=== PATIENT | female | born 1965 | race Caucasian/White ===

== ENCOUNTER 2023-08-15 20:30 | Outpatient (REF) | payer OTHER, SELFPAY ==
[2023-08-21 21:13] LABS: Age Gdln ACOG Testing Note (.); HPV Aptima Negative (Negative); IGP, Aptima HPV, rfx 16/18,45 Note (.)
== END 2023-08-15 20:31 | disposition home or self-care (01) ==
LOC: LAB 20:30
PROVIDERS: Visit Provider Obstetrics & Gynecology
DX: Z01.419 Encounter for gynecological examination (general) (routine) without abnormal findings (principal)
CPT/HCPCS: 87624; G0145

== ENCOUNTER 2023-09-12 15:51 | Outpatient (OUT) | payer OTHER, SELFPAY ==
--- OUTSIDE RECORDS SUMMARY | 2023-09-12 16:02 | XMS_ITS | CCD ---
Author Organization [facility] Care Team Providers Care Finished Yarn Examiner Name Role Phone Damaris Willingham Unavailable Reyna Cruz Unavailable MACKENZIE Cruz Attending Provider [phone] NO FAMILY, PHYSICIAN Primary Care Provider Unava ilable ELIAS Willingham Attending Provider Unavail able Reyna Cruz Attending Unavailable Reyna Cruz Admitting Unavailable NO FAMILY, PHYSICIAN Primary Care Unavailable Damaris Willingham Attending Unavailable Damaris Willingham Admitting Unavailable KARASIK, DR ARREDONDO Admitting Unavailable KARASIK, DR ARREDONDO Attending Unavailable KARASIK, DR ARREDONDO Consulting Unavailable KARASIK, DR ARREDONDO Admitting Unavailable KARASIK, DR ARREDONDO Attending Unavailable KARASIK, DR ARREDONDO Consulting Unavailable Paula HARRIS Admitting UnavailPaula Crowley Attending UnavailLAURENCE Mann Primary Care Unavailable Paula HARRIS Referring UnavailLAURENCE Mann Primary Care Unavailable Lm INFORMATION SYSTEMS SECURITY ANALYST-AUTOMOBILE TECHNICIANLaurence Primary Care Provid er Unavailable Primary Care Provider UnavailSRAAH Kulkarni Referring Unavailable LAURENCE AMATO Primary Care Unavailable LAURENCE AMATO Referring Unavailable LAURENCE AMATO Primary Care Unavailable ANILA ANDRADE Attending Unavailable ANILA ANDRADE Attending Unavailable Medications Current Medications Medication Drug Class(es) Dates Sig (Normalized) Sig (Original) cholecalciferol 0.125 mg oral tablet (2 sources) Vitamin D Start: 03-23-2023 take 1 tablet by mouth once in the morning cholecalciferol, vitamin D3, 5,000 units tablet Indications: Vitamin D deficiency Take 1 tablet (5,000 Units total) by mouth in the morning. 90 each 2 03/23/2023 Active ciprofloxacin 500 mg oral tablet (2 sources) Quinolone Antimicrobial Start: 05-11-2023 End: 05-18-2023 take 1 tablet by mouth in the morning ciprofloxacin (Cipro) 500 MG tablet Indications: Urinary Tract Infection Take 1 tablet (500 mg) by mouth in the morning and 1 tablet (500 mg) before bedtime. Do all this for 7 days. 14 tablet 0 05/11/2023 05/18/2023 Active doxycycline monohydrate 100 mg oral capsule (1 source) Tetracycline-class Drug Start: 11-18-2021 take 1 capsule by mouth every twelve hours Doxycycline Monohydrate 100 MG 1 capsule Orally every 12 hrs for 7 days Nov, Active fluticasone propionate 0.05 mg/actuat metered dose nasal spray (3 sources) Corticosteroid Start: 02-25-2023 take 2 spray(s) nasal route once daily fluticasone propionate (FLONASE) 50 mcg/actuation nasal spray instill 2 (TWO) Sprays Nasally DAILY FOR 14 DAYS 0 02/25/2023 Active Start: 03-31-2021 take 2 spray(s) nasa l route once daily Fluticasone Propionate 50 MCG/ACT 2 sprays Nasally Once a day for 14 day(s) Mar, Active 24 hr loratadine 10 mg / pseudoephedrine sulfate 240 mg extended release oral tablet (2 sources) alpha-Adrenergic Agonist Start: 12-07-2021 take 1 tablet by mouth once daily as needed, then take 1 tablet by mouth every twenty-four hours as needed loratadine-pseudoephedrine (CLARITIN-D 24-hour) 10-240 mg per 24 hr tablet Indications: Non-seasonal allergic rhinitis due to pollen Take 1 tablet by mouth daily as needed for allergies. 30 tablet 1 12/07/2021 Active metroNIDAZOLE 500 mg oral tablet (2 sources) Nitroimidazole Antimicrobial Start: 05-11-2023 End: 05-18-2023 take 1 tablet by mouth in the morning metroNIDAZOLE (Flagyl) 500 MG tablet Indications: BV (bacterial vaginosis) Take 1 tablet (500 mg) by mouth in the morning and 1 tablet (500 mg) before bedtime. Do all this for 7 days. Do not drink alcohol while taking this medication. 14 tablet 0 05/11/2023 05/18/2023 Active nitrofurantoin, macrocrystals 25 mg / nitrofurantoin, monohydrate 75 mg oral capsule (1 source) Nitrofuran Antibacterial Start: 01-12-2022 take 1 capsule by mouth every twelve hours Macrobid 100 MG 1 cap(s) Orally 2 times a day for 5 day(s) Jan, Active microencapsulated potassium chloride 20 meq extended release oral tablet (1 source) Start: 03-23-2023 End: 03-28-2023 take 1 tablet by mouth in the morning potassium chloride (KLOR-CON M 20) 20 MEQ CR tablet Indications: Hypokalemia Take 1 tablet (20 mEq total) by mouth in the morning and 1 tablet (20 mEq total) before bedtime. Do all this for 5 days. 10 tablet 0 03/23/2023 03/28/2023 Active pravastatin sodium 40 mg oral tablet (6 sources) HMG-CoA Reductase Inhibitor Start: 05-27-2022 End: 03-23-2023 take 1 tablet by mouth at bedtime pravastatin (PRAVACHOL) 40 mg tablet Indications: Mixed hyperlipidemia TAKE 1 TABLET BY MOUTH AT BEDTIME. 90 tablet 1 03/23/2023 Active Pravachol Active predniSONE 20 mg oral tablet (1 source) Start: 03-31-2021 take 1 tablet by mouth every twelve hours predniSONE 20 MG 1 tablet Orally bid for 5 day(s) Mar, Active Completed/Discontinued Medications Medication Drug Class(es) Dates Sig (Normalized) Sig (Original) fluconazole 150 mg oral tablet (3 sources) Azole Antifungal Start: 05-11-2023 End: 05-11-2023 take 1 tablet by mouth once, then take 1 tablet by mouth once fluconazole (Diflucan) 150 MG tablet Indications: Yeast infection Take 1 tablet (150 mg) by mouth 1 (one) time for 1 dose This is a 1 time dose, take single tablet by mouth. 1 tablet 1 05/11/2023 05/11/2023 Start: 11-18-2021 Diflucan 150 M G 1 tablet Orally if needed after antibiotics completed for 1 days Nov, Active phenazopyridine hydrochloride 200 mg oral tablet (3 sources) Start: 01-26-2022 End: 03-22-2023 take 1 tablet by mouth three times daily as needed for muscle spasms phenazopyridine (PYRIDIUM) 200 mg tablet Indications: Acute cystitis without hematuria Take 1 tablet (200 mg total) by mouth 3 (three) times a day as needed for bladder spasms. 10 tablet 0 01/26/2022 03/22/2023 Discontinued (Therapy completed) Start: 01-12-2022 take 1 tablet by mir th every eight hours Pyridium 200 MG 1 tablet after meals Orally Three times a day for 2 day(s) Jan, Active Start: 11-18-2021 take 1 tablet by mir th every eight hours Pyridium 200 MG 1 tablet after meals Orally Three times a day for 2 day(s) Nov, Active sulfamethoxazole 400 mg / trimethoprim 80 mg oral tablet (1 source) Dihydrofolate Reductase Inhibitor Antibacterial, Sulfonamide Antimicrobial End: 03-22-2023 take 1 tablet by mouth once in the morning sulfamethoxazole-trimethoprim (BACTRIM,SEPTRA) 400-80 mg per tablet Take 1 tablet by mouth in the morning and 1 tablet before bedtime. 0 03/22/2023 Discontinued (Therapy completed) Problems Active Problems Problem Classification Problem Date Documented Date Episodic/Chronic Abdominal pain (4 sources) Flank pain; Translations: [Unspecified abdominal pain] Onset: 11-18-2021 Resolved: 11-18-2021 Episodic Disorders of lipid metabolism (3 sources) Mixed hyperlipidemia; Translations: [Mixed hyperlipidemia] 03-23-2023 Chronic Fluid and electrolyte disorders (3 sources) Hypokalemia; Translations: [Hypokalemia] Onset: 06-05-2023 03-23-2023 Episodic Genitourinary symptoms and ill-defined conditions (7 sources) Dysuria; Translations: [Dysuria] Onset: 01-12-2022 Episodic Inflammatory diseases of female pelvic organs (2 sources) Bacterial vaginosis; Translations: [Acute vaginitis] 05-04-2023 Episodic Malaise and fatigue (2 sources) Fatigue; Translations: [Other fatigue] Onset: 03-23-2023 03-22-2023 Episodic Mycoses (2 sources) Mycosis; Translations: [Candidiasis, unspecified] 05-11-2023 Episodic Nutritional deficiencies (2 sources) Vitamin D deficiency; Translations: [Vitamin D deficiency, unspecified] Onset: 03-23-2023 03-22-2023 Chronic Other female genital disorders (4 sources) Unspecified condition associated with female genital organs and menstrual cycle; Translations: [UNS COND W/FE GENIT ORGN MENST CYCL] Onset: 02-22-2022 Episodic Other nervous system disorders (1 source) Other acute postprocedural pain; Translations: [Other acute postprocedural pain] Onset: 01-10-2023 Episodic Other screening for suspected conditions (not mental disorders or infectious disease) (5 sources) Encounter for screening for malignant neoplasm of cervix; Translations: [Patient encounter status] Onset: 07-22-2021 Episodic Other upper respiratory infections (2 sources) Acute sinusitis, unspecified; Translations: [Viral upper respiratory tract infection] Onset: 03-31-2021 Resolved: 03-31-2021 Episodic Sprains and strains (1 source) Strain of muscle at thorax level; Translations: [Strain of muscle and tendon of unspecified wall of thorax, initial encounter] 06-05-2023 Episodic Past or Other Problems Problem Classification Problem Date Documented Date Episodic/Chronic Cardiac dysrhythmias (2 sources) Tachycardia; Translations: [Tachycardia, unspecified] Onset: 02-14-2019 02-14-2019 Episodic Immunizations and screening for infectious disease (1 source) Encounter for screening for human papillomavirus (HPV); Translations: [ENC SCREENING HUMAN PAPILLOMAVIRUS] Onset: 07-23-2021 Episodic Mood disorders (2 sources) Mood disorders Onset: 03-22-2023 Resolved: 06-05-2023 03-22-2023 Other connective tissue disease (2 sources) Plantar fasciitis of left foot; Translations: [Plantar fascial fibromatosis] Onset: 02-14-2019 02-14-2019 Episodic Unclassified (2 sources) Onset: 03-28-2023 03-28-2023 Urinary tract infections (4 sources) Acute cystitis with hematuria; Translations: [Urinary tract infection, site not specified] Onset: 07-03-2019 Resolved: 11-18-2021 Episodic Results Test Name Value Interpretation Reference Range Facility BASIC METABOLIC PANLon 06-04 Anion gap [Moles/Vol] 7 mmol/L Normal 5-15 [facility] Comment on above: Performed By: #### B MP #### [facility] ([id number]) [address] [place] [address] Calcium [Mass/Vol] 10.5 mg/dL Normal 8.5-10.[address] [facility] Comment on above: Performed By: #### B MP #### [facility] ([id number]) [address] [place] [address] Chloride [Moles/Vol] 100 mmol/L Normal 98-109 [facility] Comment on above: Performed By: #### B MP #### [facility] ([id number]) [address], [address] [place] [address] CO2 [Moles/Vol] 32 mmol/L Normal 22-32 [facility] Comment on above: Performed By: #### B MP #### [facility] ([id number]) [address] [place] [address] Creatinine [Mass/Vol] 0.71 mg/dL Normal 0.40-1.00 [facility] Comment on above: Result Comment: METH OD TRACEABLE TO IDMS STANDARD Performed By: #### B MP #### [facility] ([id number]) [address] [place] [address] eGFR (CKD-EPI) NON-RACE DEPENDENT >90 Normal >59 [facility] Comment on above: Result Comment: Reported eGFR is based on the CKD-EPI 2020 equation that does not use a race coefficient. Performed By: #### B MP #### [facility] ([id number]) [address] [place] [address] Glucose [Mass/Vol] 95 mg/dL Normal 65-[address] [facility] Comment on above: Performed By: #### B MP #### [facility] ([id number]) [address], [address] [place] [address] Potassium [Moles/Vol] 3.8 mmol/L Normal 3.5-5.0 [facility] Comment on above: Performed By: #### B MP #### [facility] ([id number]) [address], [address] [place] [address] Sodium [Moles/Vol] 139 mmol/L Normal 134-[address] [facility] Comment on above: Performed By: #### B MP #### [facility] ([id number]) [address], [address] [place] [address] Urea nitrogen [Mass/Vol] 18 mg/dL Normal 5-23 [facility] Comment on above: Performed By: #### B MP #### [facility] ([id number]) [address], [address] [place] [address] Basic Metabolic Panelon 03-0 Anion gap [Moles/Vol] 7 mmol/L 5 - 15 mmol/L [facility] Calcium [Mass/Vol] 10.5 mg/dL 8.5 - 10. 5 mg/dL [facility] Chloride [Moles/Vol] 100 mmol/L 98 - 109 mmol/L [facility] CO2 [Moles/Vol] 32 mmol/L 22 - 32 mmol/L [facility] Creatinine [Mass/Vol] 0.71 mg/dL 0.40 - 1.00 mg/dL [facility] Comment on above: METHOD TRACEABLE TO IDMS STANDARD eGFR (CKD-EPI)non-race dependent - PINF [facility] Comment on above: Reported eGFR is based on the CKD-EPI 2020 equation that does not use a race coefficient. Glucose [Mass/Vol] 95 mg/dL 65 - 99 mg/dL [facility] Potassium [Moles/Vol] 3.8 mmol/L 3.5 - 5.0 mmol/L [facility] Sodium [Moles/Vol] 139 mmol/L 134 - 146 mmol/L [facility] Urea nitrogen [Mass/Vol] 18 mg/dL 5 - 23 mg/dL [facility] POCT urinalysis dipstick onl yon 06-05-2023 Appearance (U) CLEAR [facility] External Poct Urine Bilirubin Negative [facility] External Poct Urine Blood Negative [facility] External Poct Urine Color YELLOW [facility] External Poct Urine Glucose Negative [facility] External Poct Urine Ketones Negative [facility] External Poct Urine Leukocyte Esterase Negative [facility] External Poct Urine Nitrite Negative [facility] External Poct Urine Ph 5.5 [facility] External Poct Urine Protein Negative [facility] External Poct Urine Specific Chauncey 1.030 [facility] External Poct Urine Urobilinogen 0.2 [facility] URINE CULTUREon 06-05-2023 Bacteria identified Cx Nom (U) CULTURE RESULTS <10,000 ORGANISMS/ML NORMAL URO GENITAL FIDELIA Normal [facility] Comment on above: Performed By: #### C BCA, CMP, 72807-8, FEPR, 3016-3, 2276-4, 82784-6, 2132-9 #### [facility] ([id number]) [address], [address] [place] [address] Urinalysis macro (dipstick) panel (U)on 05-11-2023 Bilirubin, UA Negative Negative - 4(70) +++ mg/dL [facility] Blood, UA Positive Negative - 50 Marlo/mcL [facility] Clarity, UA Clear [facility] Color, UA Yellow [facility] Glucose, UA Negative Negative - 1999(110) ++++ mg/dL [facility] Interpretation and review of laboratory results Abnormal [facility] Ketones, UA Negative Negative - 160(16) ++++ mg/dL [facility] Leukocytes, UA Negative Negative - 500+++ Mitchel/mcL [facility] Nitrite, UA Negative Negative - Positive [facility] pH, UA 6.5 5 - 9 [facility] Protein, UA Negative Negative - 1999(20) ++++ mg/dL [facility] Spec Grav, UA 1.030 1 - 1.03 [facility] Urobilinogen, UA 1.0 0.2 - 12 mg/dL [facility] e Hemoglobin A1con 03-23-2023 Average glucose Estimated from glycated hemoglobin (Bld) [Mass/Vol] 117 mg/dL [facility] HbA1c (Bld) [Mass fraction] 5.7 % High 4.4 - 5.6 % [facility] Comment on above: NOTE ADA Guidelines Result HgbA1c Normal : less than 5.7 % Prediabetes : 5.7 % to 6.4 % Diabetes : > 6.4 % Use with caution in patients with abnormal hemoglobin variants as the half-life of red blood cells and in vivo glycation rates are affected. Interpretation and review of laboratory results Abnormal [facility] CBC AND AUTO DIFFon 03-22-20 ABSOLUTE BASOPHIL 0.0 X10E9/L Normal 0.0-0.[address] [facility] Comment on above: Performed By: #### C BCA, CMP, 81333-4, FEPR, 3016-3, 2276-4, 81135-4, 2131-12 #### [facility] ([id number]) [address] [place] [address] ABSOLUTE NEUTROPHIL 2.3 X10E9/L Normal 1.5-6.6 [facility] Comment on above: Performed By: #### C BCA, CMP, 45907-8, FEPR, 3016-3, 2276-4, 15360-2, 2131-12 #### [facility] ([id number]) [address] [place] [address] Basophils/100 WBC (Bld) 0.4 % Normal [facility] Comment on above: Performed By: #### C BCA, CMP, 25308-8, FEPR, 3016-3, 2276-4, 54382-4, 9 #### [facility] ([id number]) [address] [place] [address] Eosinophils (Bld) [#/Vol] 0.1 10*3/uL Normal 0.0-0.4 [facility] Comment on above: Performed By: #### C BCA, CMP, 30479-2, FEPR, 3016-3, 2276-4, 64390-9, 2131-12 #### [facility] ([id number]) [address], [address] [place] [address] Eosinophils/100 WBC (Bld) 1.5 % Normal [facility] Comment on above: Performed By: #### C BCA, CMP, 60036-2, FEPR, 3016-3, 2276-4, 28466-5, 2131-12 #### [facility] ([id number]) [address], [facility] [address] [place] [address] Erythrocyte distribution width (RBC) [Ratio] 13.6 % Normal 11.5-15.0 [facility] Comment on above: Performed By: #### C BCA, CMP, 58764-5, FEPR, 3016-3, 2276-4, 12061-7, 2131-12 #### [facility] ([id number]) [address], [facility] [address] [place] [address] Hematocrit (Bld) [Volume fraction] 42.5 % Normal 35-47 [facility] Comment on above: Performed By: #### C BCA, CMP, 19995-0, FEPR, 3016-3, 2276-4, 88746-2, 2131-12 #### [facility] ([id number]) [address], [facility] [address] [place] [address] Hemoglobin (Bld) [Mass/Vol] 14.3 g/dL Normal 11.7-15.5 [facility] Comment on above: Performed By: #### C BCA, CMP, 36136-3, FEPR, 3016-3, 2276-4, 11300-9, 2131-12 #### [facility] ([id number]) [address], [address] [place] [address] Lymphocytes (Bld) [#/Vol] 3.0 10*3/uL Normal 1.0-3.5 [facility] Comment on above: Performed By: #### C BCA, CMP, 17243-2, FEPR, 3016-3, 2276-4, 53325-6, 2131-12 #### [facility] ([id number]) [address], [address] [place] [address] Lymphocytes/100 WBC (Bld) 52.4 % Normal [facility] Comment on above: Performed By: #### C BCA, CMP, 12233-9, FEPR, 3016-3, 2276-4, 13826-4, 2131-12 #### [facility] ([id number]) [address], [address] [place] [address] MCH (RBC) [Entitic mass] 29.5 pg Normal 27-34 [facility] Comment on above: Performed By: #### C BCA, CMP, 59899-3, FEPR, 3016-3, 227-4, 52930-2, 2131-12 #### [facility] ([id number]) [address], [address] [place] [address] MCHC (RBC) [Mass/Vol] 33.6 g/dL Normal 32-36 [facility] Comment on above: Performed By: #### C BCA, CMP, 02024-6, FEPR, 3016-3, 2276-4, 65136-4, 2131-12 #### [facility] ([id number]) [address] [place] [address] MCV (RBC) [Entitic vol] 88 fL Normal 80-100 [facility] Comment on above: Performed By: #### C BCA, CMP, 79358-2, FEPR, 3016-3, 2276-4, 10438-7, 2131-12 #### [facility] ([id number]) [address], [address] [place] [address] Monocytes (Bld) [#/Vol] 0.3 10*3/uL Normal 0-0.9 [facility] Comment on above: Performed By: #### C BCA, CMP, 71857-1, FEPR, 3016-3, 2276-4, 17711-5, 2131-12 #### [facility] ([id number]) [address], [address] [place] [address] Monocytes/100 WBC (Bld) 4.8 % Normal [facility] Comment on above: Performed By: #### C BCA, CMP, 74976-4, FEPR, 3016-3, 2276-4, 48801-4, 2131-12 #### [facility] ([id number]) [address], [address] [place] [address] Neutrophils/100 WBC (Bld) 40.9 % Normal [facility] Comment on above: Performed By: #### C BCA, CMP, 76938-8, FEPR, 3016-3, 2276-4, 75959-0, 2131-12 #### [facility] ([id number]) [address] [place] [address] Platelet mean volume (Bld) [Entitic vol] 7.6 fL Normal 7-12 [facility] Comment on above: Performed By: #### C BCA, CMP, 33638-0, FEPR, 3016-3, 2276-4, 92534-8, 2131-12 #### [facility] ([id number]) [address], [address] [place] [address] Platelets (Bld) [#/Vol] 307 10*3/uL Normal 150-450 [facility] Comment on above: Performed By: #### C BCA, CMP, 63125-0, FEPR, 3016-3, 2276-4, 75249-9, 2131-12 #### [facility] ([id number]) [address], [address] [place] [address] RBC COUNT 4.84 X10E12/L Normal 3.80-5.[address] [facility] Comment on above: Performed By: #### C BCA, CMP, 49432-3, FEPR, 3016-3, 2276-4, 41144-0, 2131-12 #### [facility] ([id number]) [address] [place] [address] WBC (Bld) [#/Vol] 5.7 10*3/uL Normal 4.0-11.[address] [facility] Comment on above: Performed By: #### C BCA, CMP, 83701-8, FEPR, 3016-3, 2276-4, 81663-1, 2131-12 #### [facility] ([id number]) [address] [place] [address] CBC auto differentialon 03-04 Basophils (Bld) [#/Vol] 0.0 10*3/uL [facility] Basophils/100 WBC (Bld) 0.4 % [facility] Eosinophils (Bld) [#/Vol] 0.1 10*3/uL [facility] Eosinophils/100 WBC (Bld) 1.5 % [facility] Erythrocyte distribution width (RBC) [Ratio] 13.6 % 11.5 - 15.0 % [facility] Hematocrit (Bld) [Volume fraction] 42.5 % 35 - 47 % [facility] Hemoglobin (Bld) [Mass/Vol] 14.3 g/dL 11.7 - 15.5 g/dL [facility] Lymphocytes (Bld) [#/Vol] 3.0 10*3/uL [facility] Lymphocytes/100 WBC (Bld) 52.4 % [facility] MCH (RBC) [Entitic mass] 29.5 pg 27 - 34 pg [facility] MCHC (RBC) [Mass/Vol] 33.6 g/dL 32 - 36 g/dL [facility] MCV (RBC) [Entitic vol] 88 fL 80 - 100 fL [facility] Monocytes (Bld) [#/Vol] 0.3 10*3/uL [facility] Monocytes/100 WBC (Bld) 4.8 % [facility] Neutrophils (Bld) [#/Vol] 2.3 10*3/uL [facility] Neutrophils/100 WBC (Bld) 40.9 % [facility] Platelet mean volume (Bld) [Entitic vol] 7.6 fL 7 - 12 fL [facility] Platelets (Bld) [#/Vol] 307 10*3/uL [facility] RBC (Bld) [#/Vol] 4.84 10*6/uL [facility] WBC corrected for nucl RBC Auto (Bld) [#/Vol] 5.7 [facility] COMPREHENSIVE METABOLIC PANE [place] 03-22-2023 Albumin [Mass/Vol] 4.6 g/dL Normal 3.2-5.[address] [facility] Comment on above: Performed By: #### C BCA, CMP, 89676-6, FEPR, 3016-3, 2276-4, 56317-8, 2131-12 #### [facility] ([id number]) [address], [address] [place] [address] ALP [Catalytic activity/Vol] 89 U/L Normal 39-130 [facility] Comment on above: Performed By: #### C BCA, CMP, 12688-8, FEPR, 3016-3, 2276-4, 27017-1, 2131-12 #### [facility] ([id number]) [address], [address] [place] [address] ALT [Catalytic activity/Vol] 21 U/L Normal 0-31 [facility] Comment on above: Performed By: #### C BCA, CMP, 57965-5, FEPR, 3016-3, 2276-4, 39352-0, 2131-12 #### [facility] ([id number]) [address], [address] [place] [address] Anion gap [Moles/Vol] 9 mmol/L Normal 5-15 [facility] Comment on above: Performed By: #### C BCA, CMP, 08076-7, FEPR, 3016-3, 2276-4, 80271-1, 2131-12 #### [facility] ([id number]) [address] [place] [address] AST [Catalytic activity/Vol] 24 U/L Normal 0-41 [facility] Comment on above: Performed By: #### C BCA, CMP, 99041-2, FEPR, 3016-3, 2276-4, 11782-0, 2131-12 #### [facility] ([id number]) [address], [address] [place] [address] Bilirubin [Mass/Vol] 0.5 mg/dL Normal 0.3-1.2 [facility] Comment on above: Performed By: #### C BCA, CMP, 52536-6, FEPR, 3016-3, 2276-4, 49184-6, 2131-12 #### [facility] [facility] ([id number]) [address], [address] [place] [address] Calcium [Mass/Vol] 10.4 mg/dL Normal 8.5-10.[address] [facility] Comment on above: Performed By: #### C BCA, CMP, 24123-6, FEPR, 3016-3, 2276-4, 62814-0, 2131-12 #### [facility] ([id number]) [address], [address] [place] [address] Chloride [Moles/Vol] 104 mmol/L Normal 98-109 [facility] Comment on above: Performed By: #### C BCA, CMP, 26756-0, FEPR, 3016-3, 2276-4, 10018-9, 2131-12 #### [facility] ([id number]) [address], [address] [place] [address] CO2 [Moles/Vol] 28 mmol/L Normal 22-32 [facility] Comment on above: Performed By: #### C BCA, CMP, 86281-0, FEPR, 3016-3, 2276-4, 76520-1, 2131-12 #### [facility] ([id number]) [address], [address] [place] [address] Creatinine [Mass/Vol] 0.81 mg/dL Normal 0.40-1.00 [facility] Comment on above: Result Comment: METH OD TRACEABLE TO IDMS STANDARD Performed By: #### C BCA, CMP, 29329-4, FEPR, 3016-3, 2276-4, 48751-3, 2131-12 #### [facility] ([id number]) [address] [place] [address] GFR/1.73 sq M.predicted among non-blacks MDRD (S/P/Bld) [Vol rate/Area] 85 mL/min/{1.73_m2} Normal >59 [facility] Comment on above: Result Comment: Reported eGFR is based on the CKD-EPI 2020 equation that does not use a race coefficient. Performed By: #### C BCA, CMP, 40903-2, FEPR, 3016-3, 2276-4, 57431-4, 2131-12 #### [facility] ([id number]) [address], [address] [place] [address] Glucose [Mass/Vol] 103 mg/dL High 65-[address] [facility] Comment on above: Performed By: #### C BCA, CMP, 37749-6, FEPR, 3016-3, 2276-4, 54259-1, 2131-12 #### [facility] ([id number]) [address], [address] [place] [address] Potassium [Moles/Vol] 3.2 mmol/L Low 3.5-5.0 [facility] Comment on above: Performed By: #### C BCA, CMP, 16745-2, FEPR, 3016-3, 2276-4, 30014-6, 2131-12 #### [facility] ([id number]) [address] [place] [address] Protein [Mass/Vol] 7.6 g/dL Normal 6.0-8.[address] [facility] Comment on above: Performed By: #### C BCA, CMP, 59604-4, FEPR, 3016-3, 2276-4, 80398-9, 2131-12 #### [facility] ([id number]) [address] [place] [address] Sodium [Moles/Vol] 141 mmol/L Normal 134-[address] [facility] Comment on above: Performed By: #### C BCA, CMP, 36889-2, FEPR, 3016-3, 2276-4, 59939-0, 2131-12 #### [facility] ([id number]) [address], [address] [place] [address] Urea nitrogen [Mass/Vol] 19 mg/dL Normal 5-23 [facility] Comment on above: Performed By: #### C BCA, CMP, 04262-2, FEPR, 3016-3, 2276-4, 08045-6, 2131-12 #### [facility] ([id number]) [address] [place] [address] Cobalamin (Vitamin B12) [Mas s/Vol]on 03-22-2023 [facility] Comprehensive metabolic pane [place] 03-22-2023 Albumin [Mass/Vol] 4.6 g/dL 3.2 - 5.3 g/dL [facility] ALP [Catalytic activity/Vol] 89 U/L 39 - 130 U/L [facility] ALT No additional P-5'-P [Catalytic activity/Vol] 21 U/L 0 - 31 U/L [facility] Anion gap [Moles/Vol] 9 mmol/L 5 - 15 mmol/L [facility] AST [Catalytic activity/Vol] 24 U/L 0 - 41 U/L [facility] Bilirubin [Mass/Vol] 0.5 mg/dL 0.3 - 1.2 mg/dL [facility] Calcium [Mass/Vol] 10.4 mg/dL 8.5 - 10. 5 mg/dL [facility] Chloride [Moles/Vol] 104 mmol/L 98 - 109 mmol/L [facility] CO2 [Moles/Vol] 28 mmol/L 22 - 32 mmol/L [facility] Creatinine [Mass/Vol] 0.81 mg/dL 0.40 - 1.00 mg/dL [facility] Comment on above: METHOD TRACEABLE TO [facility] STANDARD eGFR (CKD-EPI)non-race dependent 85 - PINF [facility] Comment on above: Reported eGFR is based on the CKD-EPI 2020 equation that does not use a race coefficient. Glucose [Mass/Vol] 103 mg/dL High 65 - 99 mg/dL [facility] Potassium [Moles/Vol] 3.2 mmol/L Low 3.5 - 5.0 mmol/L [facility] Protein [Mass/Vol] 7.6 g/dL 6.0 - 8.0 g/dL [facility] Sodium [Moles/Vol] 141 mmol/L 134 - 146 mmol/L [facility] Urea nitrogen [Mass/Vol] 19 mg/dL 5 - 23 mg/dL [facility] FERRITINon 03-22-2023 Ferritin [Mass/Vol] 136 ng/mL Normal 11-307 [facility] Comment on above: Performed By: #### C BCA, CMP, 66017-4, FEPR, 3016-3, 2276-4, 27760-8, 2132-9 #### [facility] ([id number]) [address], [address] [place] [address] Ferritinon 03-22-2023 Ferritin [Mass/Vol] 136 ng/mL 11 - 307 ng/mL [facility] Ferritin [Mass/Vol]on 2022 [facility] HGB A1C (GLYCO-HGB)on 2022 Glucose [Mass/Vol] 117 mg/dL Normal [facility] Comment on above: Performed By: #### C BCA, CMP, 28610-3, FEPR, 3016-3, 2276-4, 87215-3, 2131-12 #### [facility] ([id number]) [address], [address] [place] [address] HbA1c (Bld) [Mass fraction] 5.7 % High 4.4-5.6 [facility] Comment on above: Result Comment: NOTE ADA Guidelines Result HgbA1c Normal : less than 5.7 % Prediabetes : 5.7 % to 6.4 % Diabetes : > 6.4 % Use with caution in patients with abnormal hemoglobin variants as the half-life of red blood cells and in vivo glycation rates are affected. Performed By: #### C BCA, CMP, 01964-3, FEPR, 3016-3, 2276-4, 49667-5, 2131-12 #### [facility] ([id number]) [address], [address] [place] [address] IRON PROFILEon 03-22-2023 Iron [Mass/Vol] 50 ug/dL Normal 50-170 [facility] Comment on above: Performed By: #### C BCA, CMP, 18226-5, FEPR, 3016-3, 2276-4, 17248-5, 2131-12 #### [facility] ([id number]) [address], [address] [place] [address] IRON BINDING 448 ug/dL High 250-425 [facility] Comment on above: Performed By: #### C BCA, CMP, 91949-2, FEPR, 3016-3, 2276-4, 10022-1, 2131-12 #### [facility] ([id number]) [address] [place] [address] IRON SATURATION 11 % SATURATION Low 15-50 [facility] Comment on above: Performed By: #### C BCA, CMP, 29822-6, FEPR, 3016-3, 2276-4, 44252-4, 2131-12 #### [facility] ([id number]) [address] [place] [address] Iron and TIBCon 03-22-2023 Interpretation and review of laboratory results Abnormal [facility] Iron [Mass/Vol] 50 ug/dL 50 - 170 ug/dL [facility] Iron binding capacity [Mass/Vol] 448 ug/dL High 250 - 425 ug/dL [facility] Iron saturation [Mass fraction] 11 Low [facility] Lipid 1996 panelon 3 Cholesterol [Mass/Vol] 280 mg/dL High 150 - 200 mg/dL [facility] Cholesterol in HDL [Mass/Vol] 71 mg/dL 39 - PINF mg/dL [facility] Comment on above: HDL <40 mg/dL - High Risk HDL > or = 40mg/dL- Desirable HDL >60 mg/dL - Negative Risk Cholesterol in LDL [Mass/Vol] 174 mg/dL High NINF - 130 mg/dL [facility] Comment on above: LDL <100 mg/dL - Desirable LDL >160 mg/dL - High Risk Cholesterol in VLDL [Mass/Vol] 35 mg/dL High 0 - 30 mg/dL [facility] Cholesterol.total/C holesterol in HDL [Mass ratio] 3.9 {ratio} 1.0 - 5.0 [facility] Triglyceride [Mass/Vol] 175 mg/dL High 27 - 150 mg/dL [facility] Cholesterol [Mass/Vol] 280 mg/dL High 150-200 [facility] Comment on above: Performed By: #### Raymond BCA, CMP, 27052-8, FEPR, 3016-3, 2276-4, 82836-8, 2131-12 #### [facility] ([id number]) [address], [address] [place] [address] Cholesterol in HDL [Mass/Vol] 71 mg/dL Normal >39 [facility] Comment on above: Result Comment: HDL <40 mg/dL - High Risk HDL > or = 40mg/dL- Desirable HDL >60 mg/dL - Negative Risk Performed By: #### C BCA, CMP, 42075-8, FEPR, 3016-3, 2276-4, 81933-9, 2131-12 #### [facility] ([id number]) [address] [place] [address] Cholesterol in LDL [Mass/Vol] 174 mg/dL High <130 [facility] Comment on above: Result Comment: LDL <100 mg/dL - Desirable LDL >160 mg/dL - High Risk Performed By: #### C BCA, CMP, 79100-0, FEPR, 3016-3, 2276-4, 27237-3, 2131-12 #### [facility] ([id number]) [address] [place] [address] Cholesterol in VLDL [Mass/Vol] 35 mg/dL High 0-30 [facility] Comment on above: Performed By: #### C BCA, CMP, 57343-8, FEPR, 3016-3, 2276-4, 81608-0, 2131-12 #### [facility] ([id number]) [address], [address] [place] [address] CHOLESTEROL:HDL 3.9 Normal 1.0-5.0 [facility] Comment on above: Performed By: #### C BCA, CMP, 33190-9, FEPR, 3016-3, 2276-4, 30617-4, 2131-12 #### [facility] ([id number]) [address] [place] [address] Triglyceride [Mass/Vol] 175 mg/dL High 27-150 [facility] Comment on above: Performed By: #### C BCA, CMP, 96694-3, FEPR, 3016-3, 2276-4, 74286-5, 2131-12 #### [facility] ([id number]) [address] [place] [address] No Panel Informationon 03-22 [facility] Interpretation and review of laboratory results Abnormal [facility] TSHon 03-22-2023 TSH Qn 3.02 m[IU]/L [facility] TSH Qnon 03-22-2023 TSH 3.02 uIU/mL Normal 0.49-4.67 [facility] Comment on above: Performed By: #### C BCA, CMP, 02318-9, FEPR, 3016-3, 2276-4, 72303-1, 2131-12 #### [facility] ([id number]) [address] [place] [address] VITAMIN B12on 03-22-2023 Cobalamin (Vitamin B12) [Mass/Vol] 581 pg/mL Normal 180-914 [facility] Comment on above: Performed By: #### C BCA, CMP, 59281-1, FEPR, 3016-3, 2276-4, 33685-4, 2131-12 #### [facility] ([id number]) [address], [address] [place] [address] Vitamin B12on 03-22-2023 Cobalamin (Vitamin B12) [Mass/Vol] 581 pg/mL 180 - 914 pg/mL [facility] Vitamin D 25 hydroxyon 03-22 Vitamin D+Metabolites [Mass/Vol] 24.0 ng/mL Low 30 - 100 ng/mL [facility] Comment on above: Vitamin D status 25 [place] Vitamin D Deficiency <20 ng/mL Insufficiency 20-29 ng/mL Sufficiency 30-100 ng/mL Toxicity >100 ng/mL NOTE: A pediatric reference range has not been established by the squirrel worker of this kit. The [employer] [employer] recommends a Vitamin D level of = or >20ng/mL in infants and children. Vitamin D+Metabolites [Mass/ Vol]on 03-22-2023 Interpretation and review of laboratory results Abnormal [facility] VITAMIN D 25 HYD TOT 24.0 ng/mL Low 30-100 [facility] Comment on above: Result Comment: Vitamin D status 25 [place] Vitamin D Deficiency <20 ng/mL Insufficiency 20-29 ng/mL Sufficiency 30-100 ng/mL Toxicity >100 ng/mL NOTE: A pediatric reference range has not been established by the squirrel worker of this kit. The [employer] recommends a Vitamin D level of = or >20ng/mL in infants and children. Performed By: #### Raymond ROSENTHAL, CMP, 28841-3, FEPR, 3016-3, 2276-4, 22622-5, 2131-12 #### [facility] ([id number]) [address] [place] [address] VAGINITIS/VAGINOSIS DNA PROB David 02-24-2022 Paige species Negative Normal Negative [facility] Comment on above: Performed By: #### V AGINT #### [facility] [address] [address] [address] Asuncion Owusu Gardnerella vaginalis Positive Abnormal Negative [facility] Comment on above: Performed By: #### V AGINT #### [facility] [address] [address] [address] Asuncion Owusu Trichomonas vaginalis Negative Normal Negative [facility] Comment on above: Performed By: #### V AGINT #### [facility] [address] [address] [address] Asuncion Owusu Urinalysis - AUTOMATEDon Appearance (U) clear [employer] Other Bilirubin Ql (U) Negative [employer] Other Color (U) yello [employer] Other Glucose Ql (U) Negative [employer] Other Hemoglobin Ql (U) trace-lysed [employer] Other Ketones Ql (U) Negative [employer] Other Leukocyte esterase Test strip Ql (U) Small [employer] Other Nitrite Ql (U) Negative [employer] Other pH (U) 5.5 [pH] [employer] Other Protein Ql (U) Negative [employer] Other Specific gravity (U) [Rel density] 1.030 [employer] Other Urobilinogen (U) [Mass/Vol] 0.20 mg/dL [employer] Other Urinalysis - AUTOMATED [employer] Other Urine Cultureon 01-12-2022 Bacteria identified Cx Nom (U) 10,000 colonies/ml mixed bacterial skin contaminants 2 Days PERFORMED BY: [place] [id number] PATHOLOGIST HEALTH SPA MANAGER GREG MOE M.D. Normal [facility] Comment on above: Performed By: #### C UU #### [address] Urine culture routineOrdered By: REYNA CRUZ on 11-20-2021 Bacteria identified Cx Nom (U) 2 Days [facility] Urinalysis - AUTOMATEDon Appearance (U) cloudy [employer] Other Bilirubin Ql (U) Negative [employer] Other Color (U) yellow [employer] Other Glucose Ql (U) Negative [employer] Other Hemoglobin Ql (U) [employer] Other Ketones Ql (U) Negative [employer] Other Leukocyte esterase Test strip Ql (U) [employer] Other Nitrite Ql (U) Negative [employer] Other pH (U) 6.5 [pH] [employer] Other Protein Ql (U) Negative [employer] Other Specific gravity (U) [Rel density] 1.025 [employer] Other Urobilinogen (U) [Mass/Vol] 1.0 mg/dL [employer] Other Urinalysis - AUTOMATED [employer] Other Urine Cultureon 11-18-2021 Bacteria identified Cx Nom (U) <9,000 colonies/ml mixed bacterial skin contaminants 2 Days PERFORMED BY: [address] [place] [address] PATHOLOGIST HEALTH SPA MANAGER GREG MOE M.D. Normal [facility] Comment on above: Performed By: #### C UU #### [address] PAP ACOG PANEL 2: 30 to 65on 07-29-2021 . . Normal [facility] Comment on above: Result Comment: Perf ormed at: WB Performed By: #### 4 [id number] #### [facility] [address] [address] [address] Asuncion Owusu Age Gdln ACOG Testing - Normal [facility] Comment on above: Performed By: #### 4 [id number] #### [facility] [address] [address] [address] Asuncion Owusu DIAGNOSIS: Comment Normal [facility] Comment on above: Result Comment: NEGA TIVE FOR INTRAEPITHELIAL LESION OR MALIGNANCY. CELLULAR CHANGES ASSOCIATED WITH ATROPHY ARE PRESENT. Performed at: WB Performed By: #### 4 [id number] #### [facility] [address] [address] [address] Asuncion Owusu HPV Aptima Negative Normal Negative [facility] Comment on above: Result Comment: This nucleic acid amplification test detects fourteen high-risk HPV types (16,18,31,33,35,39,45,51,52,56,58,59,66,68) without differentiation. Performed at: =G Performed By: #### 4 [id number] #### [facility] [address] [address] [address] Asuncion Owusu Methodology: Comment Normal [facility] Comment on above: Result Comment: This liquid based ThinPrep(R) pap test was screened with the use of an image guided system. Performed at: WB Performed By: #### 4 [id number] #### [facility] [address] [place] [address] Dr. Asuncion Owusu Note: Comment Normal [facility] Comment on above: Result Comment: The Pap smear is a screening test designed to aid in the detection of premalignant and malignant conditions of the uterine cervix. It is not a diagnostic procedure and should not be used as the sole means of detecting cervical cancer. Both false-positive and false-negative reports do occur. . Performed at: WB Performed By: #### 4 [id number] #### [facility] [address] [place] [address] Dr. Asuncion Owusu Performed by: Comment Normal [facility] Comment on above: Result Comment: Dayday Mullins, Railway Signalling Engineer (ASCP) Performed at: WB Performed By: #### 4 [id number] #### [facility] [address] [place] [address] Dr. Asuncion Owusu Specimen adequacy: Comment Normal [facility] Comment on above: Result Comment: Sati sfactory for evaluation. Endocervical component may not be distinguished in cases of atrophy. Performed at: WB Performed By: #### 4 [id number] #### [facility] [address] [place] [address] Dr. Asuncion Owusu Vital Signs Date Time Vital Sign Value Performing Clinician Facility 06-05-2023 15:53-0500 Body height 157.5 cm Sarah Quezada INFORMATION SYSTEMS SECURITY ANALYST-RAGS LABORER Work Phone: [facility] 06-05-2023 15:53-0500 Body mass index (BMI) [Ratio] 20.74 kg/m2 Sarah Quezada INFORMATION SYSTEMS SECURITY ANALYST-RAGS LABORER Work Phone: [facility] 06-05-2023 15:53-0500 Body temperature 98.01 [degF] Sarah Quezada APRN-RAGS LABORER Work Phone: [facility] 06-05-2023 15:53-0500 Body weight 51.44 kg Sarah Quezada INFORMATION SYSTEMS SECURITY ANALYST-RAGS LABORER Work Phone: [facility] 06-05-2023 15:53-0500 Diastolic blood pressure 60 mm[Hg] Sarah Quezada APRN-RAGS LABORER Work Phone: [facility] 06-05-2023 15:53-0500 Heart rate 96 /min Sarah Quezada APRN-RAGS LABORER Work Phone: [facility] 06-05-2023 15:53-0500 SaO2% (BldA) [Mass fraction] 97 % Sarah Quezada APRN-RAGS LABORER Work Phone: [facility] 06-05-2023 15:53-0500 Systolic blood pressure 98 mm[Hg] Sarah Quezada APRN-RAGS LABORER Work Phone: [facility] 05-11-2023 11:57-0500 Body mass index (BMI) [Ratio] 20.81 kg/m2 Anila Lupe DO Work Phone: [facility] 05-11-2023 11:57-0500 Body weight 51.62 kg Anila Lupe DO Work Phone: [facility] 05-11-2023 11:57-0500 Diastolic blood pressure 76 mm[Hg] Anila Lupe DO Work Phone: [facility] 05-11-2023 11:57-0500 Systolic blood pressure 118 mm[Hg] Anila Lupe DO Work Phone: [facility] 03-22-2023 17:21-0500 Body height 157.5 cm Laurence Amato APRN-AUTOMOBILE TECHNICIAN Work Phone: [facility] 03-22-2023 17:21-0500 Body mass index (BMI) [Ratio] 20.12 kg/m2 Laurence Amato INFORMATION SYSTEMS SECURITY ANALYST-AUTOMOBILE TECHNICIAN Work Phone: [facility] 03-22-2023 17:21-0500 Body temperature 97 [degF] Laurencenano Amato INFORMATION SYSTEMS SECURITY ANALYST-AUTOMOBILE TECHNICIAN Work Phone: [facility] 03-22-2023 17:21-0500 Body weight 49.9 kg Laurencenano Amato INFORMATION SYSTEMS SECURITY ANALYST-AUTOMOBILE TECHNICIAN Work Phone: [facility] 03-22-2023 17:21-0500 Diastolic blood pressure 62 mm[Hg] Laurencenano Amato INFORMATION SYSTEMS SECURITY ANALYST-AUTOMOBILE TECHNICIAN Work Phone: [facility] 03-22-2023 17:21-0500 Heart rate 82 /min Laurence BRITT Work Phone: [facility] 03-22-2023 17:21-0500 SaO2% (BldA) [Mass fraction] 99 % Laurence Amato APRNCiviQSAURAV Work Phone: [facility] 03-22-2023 17:21-0500 Systolic blood pressure 128 mm[Hg] Laurence Amato APRNCiviQAUTOMOBILE TECHNICIAN Work Phone: [facility] 01-12-2022 16:15-0400 Body height 157.48 cm Damaris Buckmond Other [employer] Other 01-12-2022 16:15-0400 Body mass index (BMI) [Ratio] 21.95 kg/m2 Damaris Buckmond Other [employer] Other 01-12-2022 16:15-0400 Body temperature 98.1 [degF] aDmaris Willingham Other [employer] Other 01-12-2022 16:15-0400 Body weight 54.43 kg Damaris Buckmond Other [employer] Other 01-12-2022 16:15-0400 Diastolic blood pressure 78 mm[Hg] Damaris Tarsha Other [employer] Other 01-12-2022 16:15-0400 Respiratory rate 18 /min Damaris Tarsha Other [employer] Other 01-12-2022 16:15-0400 SaO2% (BldA) [Mass fraction] 99 % Damaris Tarsha Other [employer] Other 01-12-2022 16:15-0400 Systolic blood pressure 127 mm[Hg] Damaris Tarsha Other [employer] Other 11-18-2021 19:00-0400 Body height 157.48 cm Reyna Cruz Other [employer] Other 11-18-2021 19:00-0400 Body mass index (BMI) [Ratio] 21.95 kg/m2 Reyna Cruz Other [employer] Other 11-18-2021 19:00-0400 Body temperature 98.2 [degF] Reyna Cruz Other [employer] Other 11-18-2021 19:00-0400 Body weight 54.43 kg Reyna Cruz Other [employer] Other 11-18-2021 19:00-0400 Diastolic blood pressure 91 mm[Hg] Reyna Cruz Other [employer] Other 11-18-2021 19:00-0400 Respiratory rate 18 /min Reyna Cruz Other [employer] Other 11-18-2021 19:00-0400 SaO2% (BldA) [Mass fraction] 99 % Reyna Cruz Other [employer] Other 11-18-2021 19:00-0400 Systolic blood pressure 155 mm[Hg] Reyna Cruz Other [employer] Other 03-31-2021 14:30-0500 Body height 157.48 cm Damaris Tarsha Other [employer] Other 03-31-2021 14:30-0500 Body mass index (BMI) [Ratio] 21.58 kg/m2 Damaris Willingham Other [employer] Other 03-31-2021 14:30-0500 Body temperature 98.2 [degF] Damaris Willingham Other [employer] Other 03-31-2021 14:30-0500 Body weight 53.52 kg Damaris Willingham Other [employer] Other 03-31-2021 14:30-0500 Diastolic blood pressure 96 mm[Hg] Damaris Willingham Other [employer] Other 03-31-2021 14:30-0500 Respiratory rate 18 /min Damaris Willingham Other [employer] Other 03-31-2021 14:30-0500 SaO2% (BldA) [Mass fraction] 96 % Damaris Willingham Other [employer] Other 03-31-2021 14:30-0500 Systolic blood pressure 144 mm[Hg] Damaris Willingham Other [employer] Other Encounters Encounter Date Encounter Type Care Provider Facility Start: 08-15-2023 End: 08-15-2023 ambulatory ANILA ANDRADE Not Available Start: 06-05-2023 End: 06-06-2023 ambulatory SARAH QUEZADA [facility] Start: 06-05-2023 End: 06-05-2023 Office outpatient visit 15 minutes Sarah Quezada INFORMATION SYSTEMS SECURITY ANALYST-RAGS LABORER [facility] Comment on above: Urinary tract infect ion symptoms (Primary Dx); Hypokalemia; Viral upper respiratory tract infection; Thoracic myofascial strain, initial encounter Start: 05-11-2023 End: 05-11-2023 ambulatory ANILA ANDRADE Not Available Start: 05-11-2023 End: 05-11-2023 Office outpatient visit 15 minutes Anila Andrade DO Work Phone: [facility] Comment on above: BV (bacterial vagino sis); UTI symptoms; Yeast infection Start: 05-10-2023 Chart abstracting Anila Andrade DO Work Phone: [facility] Start: 03-23-2023 End: 03-23-2023 ambulatory [facility] Start: 03-23-2023 Encounter for genera l adult medical examination without abnormal findings [facility] Start: 03-22-2023 End: 03-22-2023 Patient encounter procedure Laurence Amato INFORMATION SYSTEMS SECURITY ANALYST-AUTOMOBILE TECHNICIAN Work Phone: [facility] Start: 03-22-2023 End: 03-22-2023 Periodic preventive med est patient 40-64yrs Laurence Amato INFORMATION SYSTEMS SECURITY ANALYST-AUTOMOBILE TECHNICIAN Work Phone: [facility] Comment on above: Annual physical exam (Primary Dx); Blood tests for routine general physical examination; Fatigue, unspecified type; Vitamin D deficiency; Encounter for screening mammogram for malignant neoplasm of breast; Mixed hyperlipidemia; Hypokalemia Start: 03-22-2023 End: 03-22-2023 Physical examination Laurence Amato INFORMATION SYSTEMS SECURITY ANALYST-AUTOMOBILE TECHNICIAN Work Phone: [facility] Work Phone: Start: 01-10-2023 End: 01-10-2023 ambulatory A [facility] Start: 12-29-2022 End: 01-03-2023 ambulatory A [facility] Start: 12-29-2022 End: 01-03-2023 Encounter for other preprocedural examination A [facility] Start: 02-22-2022 End: 11-22-[address] ARNULFO WADDELL Facility:[facility] Start: 01-12-2022 End: 01-12-2022 ambulatory Damaris Willingham Facility:[facility] Start: 01-12-2022 End: 01-12-2022 Departed Referred PHYSICIAN NO [facility] [place] Start: 01-12-2022 End: 01-12-2022 ambulatory PHYSICIAN NO [facility] Work Phone: Start: 01-12-2022 Office outpatient vi sit 15 minutes Damaris Willingham [facility] Start: 11-18-2021 End: 11-18-2021 Departed Referred RAGS LABORER-C Reyna Cruz Work Phone: [facility] Start: 11-18-2021 End: 11-18-2021 ambulatory Reyna Cruz [employer] Other Start: 11-18-2021 Office outpatient vi sit 15 minutes Reyna Cruz [facility] Start: 07-22-2021 End: 07-22-[address] ARNULFO WADDELL Facility:[facility] Start: 03-31-2021 End: 03-31-2021 ambulatory Damaris Willingham Other [employer] Other Start: 03-31-2021 Office outpatient vi sit 15 minutes Damaris Willingham [facility] Procedures Date Procedure Procedure Detail Performing Clinician Start: 06-05-2023 Urnls dip stick/tabl et rgnt non-auto w/o micrscp Sarah Quezada INFORMATION SYSTEMS SECURITY ANALYST-RAGS LABORER Work Phone: Start: 06-05-2023 Adult depression scr eening assessment Sarah Quezada INFORMATION SYSTEMS SECURITY ANALYST-RAGS LABORER Work Phone: Start: 05-11-2023 Urnls dip stick/tabl et rgnt non-auto w/o micrscp Anila Lupe DO Work Phone: Start: 03-22-2023 Adult depression scr eening assessment Laurencealda Amato INFORMATION SYSTEMS SECURITY ANALYST-AUTOMOBILE TECHNICIAN Work Phone: Start: 12-27-2021 Colonoscopy Laurence lewis INFORMATION SYSTEMS SECURITY ANALYST-AUTOMOBILE TECHNICIAN Work Phone: Start: 08-03-2017 Mammography Laurence lewis INFORMATION SYSTEMS SECURITY ANALYST-AUTOMOBILE TECHNICIAN Work Phone: Urine culture RAGS LABORER-C Magnolia Cruz Work Phone: Plan of Treatment Date Care Activity Detail Author Start: 12-28-2031 Screening for malign ant neoplasm of colon Colonoscopy [facility] Start: 06-04-2024 Adult BMI Screening Adult BMI Screen ing [facility] Start: 06-04-2024 Depression Screening Depression Scre ening [facility] Start: 06-04-2024 Tobacco Screening Tobacco Screening [facility] Start: 03-23-2024 Tobacco Screening Tobacco Screening [facility] Start: 03-22-2024 Adult BMI Screening Adult BMI Screen ing [facility] Start: 03-22-2024 Depression Screening Depression Scre ening [facility] Start: 08-15-2023 End: 08-15-2023 Patient encounter procedure 08/15/2023 1:00 PM EDT Office Visit [facility] [address] [place] [id number] Anila Andrade, DO [address] [place] [address] [facility] Start: 05-11-2023 End: 05-11-2023 Patient encounter procedure 05/11/2023 11:40 AM EST Office Visit [facility] [address] [place] [id number] Anila Andrade, DO [address] [place] [address] BV (bacterial vaginosis) [facility] Comment on above: BV (bacterial vagino sis) Start: 03-22-2023 End: 03-22-2024 DBT Breast - bilateral screening Mammography screening bilateral with CAD Imaging Routine Encounter for screening mammogram for malignant neoplasm of breast Expected: 03/22/2023, Expires: 03/22/2024 [facility] Work Phone: Comment on above: Expected: 03/22/2023 , Expires: 03/22/2024 Start: 12-02-2022 Influenza vaccination Influenza Vacc ine [facility] Start: 08-03-2018 Screening for malign ant neoplasm of breast Mammogram [facility] Start: 2016 Administration of varicella zoster vaccine Zoster (Shingles) Vaccine (1 of 2) [facility] Start: 12-09-1987 Screening for malign ant neoplasm of cervix Pap Smear [facility] Start: 1985 DTaP,Tdap and Td Vac cines (1 - Tdap) DTaP,Tdap and Td Vaccines (1 - Tdap) [facility] Bacteria identified in Urine by Culture [facility] End: 06-04-2024 Bacteria identified in Urine by Culture Urine culture (clean catch) Microbiology Routine Urinary tract infection symptoms 1 Occurrences starting 06/05/2023 until 06/04/2024 [facility] Work Phone: Comment on above: 1 Occurrences starti ng 06/05/2023 until 06/04/2024 Bacteria identified in Urine by Culture Urine culture (clean catch) Microbiology Routine Urinary tract infection symptoms 06/05/2023 9:47 PM EST [facility] Payers Date Payer Category Payer Unknown [employer] [id number] 2023-Present [address] [address] [place] [address] [id number] 2022 Private Health Insurance [facility] [employer] [id number] 2022-Present [phone] [address] [address] [place] [address] [id number] 2022 Unknown [id number] 2021 Self-pay 1966 Unknown [id number] 1966 Unknown [id number] 1966 Unknown [id number] 1966 Unknown [id number] 1966 Unknown [id number] [id number] 1966 Unknown [id number] [id number] 1959 Unknown [id number] Unknown [id number] [id number] Unknown [id number] Social History Date Type Detail Facility Unknown if ever smoked [employer] Other Start: 02-26-2018 End: 05-14-2020 Sex Assigned At [employer] Other Start: 1965 Sex Assigned At Female [facility] Start: 03-22-2023 Tobacco smoking status [facility] Never smoked tobacco [facility] [employer] [facility] Start: 03-22-2023 Tobacco use and exposure Smokeless tobacco non-user [facility] [employer] [facility] Start: 03-23-2023 End: 06-05-2023 Alcohol intake Current drinker of alcohol (finding) [facility] Start: 05-14-2020 End: 03-23-2023 Alcohol intake [facility] [employer] [facility] [employer] Frequency of Alcohol Consumption 2-4 times a month [facility] [employer] [facility] Start: 11-03-2016 Alcohol Comment socially [facility] Start: 1965 Sex Assigned At Not on file [facility] [employer] [facility] Clinical Notes 03-31-2021 to 06-05-2023 Sarah Quezada, INFORMATION SYSTEMS SECURITY ANALYST-RAGS LABORER - 06/05/2023 3:40 PM Tejal Andrade, - 05/11/2023 11:40 AM KAMILAHLaurence Amato, INFORMATION SYSTEMS SECURITY ANALYST-AUTOMOBILE TECHNICIAN - 03/22/2023 5:15 PM EST Note Date & Type Note Facility 06-05-2023 History of Present illness Narrative Subjective Patient ID: Sheree Sanabria is a 57 y.o. female. Has had some burning type pain in what she called her flank area but was actually just below her scapula She does have a very intense job and does a lot of physical work No urinary pressure or frequency Usually when she has a uti her back is the first thing to occur, she was just treated for bv by her behavioral therapist it was found on her pap No fever but she was anemic on her blood work last month She also has been coughing and congested for the past few weeks but that seems to be improving but at one time her cough was quite harsh The following portions of the patient's history were reviewed and updated as appropriate: allergies, current medications, past family history, past medical history, past social history, past surgical history, problem list, and medication reconciliation was completed including current medication and post discharge medication. Review of Systems Constitutional: Negative for chills, fatigue and fever. HENT: Positive for congestion, postnasal drip and rhinorrhea. Eyes: Negative. Respiratory: Positive for cough. Negative for shortness of breath and wheezing. Cardiovascular: Negative. Gastrointestinal: Negative. Endocrine: Negative. Genitourinary: Negative. Musculoskeletal: Positive for back pain. Skin: Negative. Allergic/Immunologic: Negative. Neurological: Negative. Hematological: Negative. Psychiatric/Behavioral: Negative. Objective Physical Exam Vitals and nursing note reviewed. Constitutional: General: She is not in acute distress. Appearance: She is normal weight. HENT: Head: Normocephalic. Right Ear: Tympanic membrane, ear canal and external ear normal. Left Ear: Tympanic membrane, ear canal and external ear normal. Nose: Congestion and rhinorrhea present. Mouth/Throat: Mouth: Mucous membranes are moist. Pharynx: No oropharyngeal exudate or posterior oropharyngeal erythema. Eyes: Conjunctiva/sclera: Conjunctivae normal. Neck: Vascular: No carotid bruit. Cardiovascular: Rate and Rhythm: Normal rate and regular rhythm. Pulses: Normal pulses. Heart sounds: Normal heart sounds. No murmur heard. Pulmonary: Effort: Pulmonary effort is normal. Breath sounds: Normal breath sounds. Abdominal: General: Abdomen is flat. Bowel sounds are normal. There is no distension. Palpations: Abdomen is soft. There is no mass. Tenderness: There is no abdominal tenderness. There is no right CVA tenderness, left CVA tenderness, guarding or rebound. Hernia: No hernia is present. Musculoskeletal: General: Tenderness (just inferior to the scapula in the thoracic area) present. Cervical back: Neck supple. No tenderness. Lymphadenopathy: Cervical: No cervical adenopathy. Skin: General: Skin is warm and dry. Capillary Refill: Capillary refill takes less than 2 seconds. Neurological: Mental Status: She is alert and oriented to person, place, and time. Psychiatric: Thought Content: Thought content normal. Judgment: Judgment normal. Assessment/Plan Justin was seen today for urinary tract infection. Diagnoses and all orders for this visit: Urinary tract infection symptoms - POCT urinalysis dipstick only - Cancel: Urine culture (clean catch); Future - Urine culture (clean catch); Future Hypokalemia - Basic Metabolic Panel; Future Viral upper respiratory tract infection Thoracic myofascial strain, initial encounter Review of her urine did not demonstrate any compelling support for a uti, but will send for culture just to ensure She is to drink fluids while we await results She did have a recent very low potassium and will ensure this has improved She has had a recent viral uri and she did have very severe coughing and it is likely she strained her muslces in her back with coughing, she may use heat and ice and ibuprofen as needed She may continue to use otc treatment for the uri SHERRI Jimenez 06/05/23 1726 [facility] History of Present illness Narrative Reason for Appointment: Patient ID: Justin Mitchell Workman is a 57 y.o. female who presents for BV Patient presents today for Acute Visit appointment. Current Medications: has a current medication list which includes the following prescription(s): ciprofloxacin and metronidazole. Medical History: Active Ambulatory Problems Diagnosis Date Noted No Active Ambulatory Problems Resolved Ambulatory Problems Diagnosis Date Noted No Resolved Ambulatory Problems Past Medical History: Diagnosis Date Asthma ([facility]) BMI 22.0-22.9, adult Breast cancer screening by mammogram Encounter for gynecological examination (general) (routine) without abnormal findings Post menopausal syndrome Family History Problem Relation Name Age of Onset Hypertension Father Asthma Father Hyperlipidemia Father Social History Tobacco Use Smoking status: Not on file Smokeless tobacco: Not on file Substance Use Topics Alcohol use: Not on file Drug use: Not on file Past Surgical History: Procedure Laterality Date FEMINIZING AUGMENTATION MAMMOPLASTY Bilateral HERNIA REPAIR WMesh No Known Allergies Review of Systems: Review of Systems Constitutional: Negative. HENT: Negative. Eyes: Negative. Respiratory: Negative. Cardiovascular: Negative. Gastrointestinal: Negative. Genitourinary: Negative. Musculoskeletal: Negative. Skin: Negative. Neurological: Negative. All other systems reviewed and are negative. Hematological: Negative. Endocrine: Negative. Allergic/Immunologic: Negative. Objective Physical Exam Constitutional: Appearance: Normal appearance. She is well-developed. Cardiovascular: Rate and Rhythm: Normal rate and regular rhythm. Pulmonary: Effort: Pulmonary effort is normal. Breath sounds: Normal breath sounds. Abdominal: General: Bowel sounds are normal. There is no distension. Palpations: Abdomen is soft. Tenderness: There is no abdominal tenderness. There is no guarding or rebound. Musculoskeletal: General: No swelling. Normal range of motion. Right lower leg: No edema. Left lower leg: No edema. Neurological: Mental Status: She is alert and oriented to person, place, and time. Skin: General: Skin is warm and dry. Psychiatric: Mood and Affect: Mood normal. Behavior: Behavior normal. Vitals and nursing note reviewed. Exam conducted with a hide and skin classer present. Vitals: Estimated body mass index is 20.81 kg/m as calculated from the following: Height as of 02/22/22: 5' 2 . Weight as of this encounter: 113 lb 12.8 oz. BP: 118/76 No LMP recorded. Assessment/Plan Encounter Diagnoses Name Primary? BV (bacterial vaginosis) UTI symptoms Yeast infection Cipro, diflucan and keflex given, cultures obtained, along with ua, pt rto for yearly exam will reevaluate at that time Documented by Anila Andrade DO on behalf of: Anila Andrade DO documented in this encounter [facility] 03-22-2023 History of Present illness Narrative Images from the original note were not included. [address] [place] [address] SUBJECTIVE: Patient ID: Sheree Sanabria is a 57 y.o. female. Chief Complaint Patient presents with Annual Exam Presents for annual physical. States she is 2 months S/P elective breast implant removal. Recovering well. Contracted COVID-19 around . Is still feeling fatigued. Would like additional testing with her labs. She is not sure if she may be anemic. Works full-time at [employer]. Does not smoke. The following portions of the patient's history were reviewed and updated as appropriate: allergies, current medications, past family history, past medical history, past social history, past surgical history and problem list. Past Surgical History: Procedure Laterality Date BREAST SURGERY BREAST AUGMENTATION COLONOSCOPY N/A 12/27/2021 Performed by Jae Lazaro DO at [facility] HERNIA REPAIR 04/03/1967 child inginal TONSILLECTOMY Past Medical History: Diagnosis Date Hyperlipidemia elevated on screening test PONV (postoperative nausea and vomiting) Wears glasses There is no immunization history on file for this patient. REVIEW OF SYSTEMS: Review of Systems Constitutional: Negative for chills and fever. HENT: Negative. Eyes: Negative for visual disturbance. Respiratory: Negative for chest tightness and shortness of breath. Cardiovascular: Negative for chest pain and palpitations. Gastrointestinal: Negative. Endocrine: Negative. Genitourinary: Negative for menstrual problem and pelvic pain. Musculoskeletal: Negative. Allergic/Immunologic: Negative. Neurological: Negative for syncope and facial asymmetry. Hematological: Does not bruise/bleed easily. Psychiatric/Behavioral: Negative. PHYSICAL EXAMINATION: Vitals: 03/22/23 1721 BP: 128/62 BP Site: Right Arm BP Postition: Sitting Pulse: 82 Temp: 36.1 C (97 F) TempSrc: Temporal SpO2: 99% Weight: 49.9 kg (110 lb) Height: 157.5 cm (5' 2 ) Patient noted to have elevated BMI and the following intervention(s) were applied: encouragement to exercise. Physical Exam Vitals and nursing note reviewed. Constitutional: General: She is not in acute distress. Appearance: She is well-developed. She is not diaphoretic. HENT: Head: Normocephalic and atraumatic. Right Ear: Tympanic membrane and external ear normal. Left Ear: Tympanic membrane and external ear normal. Nose: Nose normal. Mouth/Throat: Mouth: Mucous membranes are moist. Pharynx: No oropharyngeal exudate. Eyes: General: Right eye: No discharge. Left eye: No discharge. Conjunctiva/sclera: Conjunctivae normal. Pupils: Pupils are equal, round, and reactive to light. Neck: Thyroid: No thyromegaly. Vascular: No JVD. Cardiovascular: Rate and Rhythm: Normal rate and regular rhythm. Heart sounds: Normal heart sounds. No murmur heard. No friction rub. No gallop. Pulmonary: Effort: Pulmonary effort is normal. Breath sounds: Normal breath sounds. Abdominal: General: Bowel sounds are normal. There is no distension. Palpations: Abdomen is soft. There is no mass. Tenderness: There is no abdominal tenderness. Musculoskeletal: General: Normal range of motion. Cervical back: Normal range of motion and neck supple. Lymphadenopathy: Cervical: No cervical adenopathy. Skin: General: Skin is warm and dry. Capillary Refill: Capillary refill takes less than 2 seconds. Neurological: Mental Status: She is alert and oriented to person, place, and time. Deep Tendon Reflexes: Reflexes are normal and symmetric. Psychiatric: Mood and Affect: Mood normal. Behavior: Behavior normal. Thought Content: Thought content normal. Judgment: Judgment normal. ASSESSMENT/PLAN: Justin was seen today for annual exam. Diagnoses and all orders for this visit: Annual physical exam Blood tests for routine general physical examination - Comprehensive metabolic panel; Future - CBC auto differential; Future - Lipid profile; Future - Hemoglobin A1c; Future - TSH; Future Fatigue, unspecified type - Iron and TIBC; Future - Ferritin; Future - Vitamin B12; Future Vitamin D deficiency - Vitamin D 25 hydroxy; Future Encounter for screening mammogram for malignant neoplasm of breast - Mammography screening bilateral with CAD; Future Breast implant removal 2 months ago. Healing well. Contracted COVID-10 in Thanksgiving. Is still experiencing significant fatigue. Check iron, B12. Wellness labs; CBC with diff, CMP, lipid, A1c, TSH New orders for mammogram- complete as directed time frame per surgeon Colonoscopy screening discussed today. Risk and benefits of procedure explained. Patient completed 2021. Recommendations to repeat in 10 years ALL QUESTIONS ANSWERED Total time spent was 35 minutes: Preparing to see the patient (e.g., review of tests) Obtaining and/or reviewing separately obtained history Performing a medically appropriate examination and/or evaluation Counseling and educating the patient/family/caregiver Ordering medications, tests, or procedures Follow-up: One year Annual physical LORENZA Sandoval 03/28/23 1220 documented in this encounter [employer] 01-12-2022 Evaluation note Encounter Date Diagnosis Assessment Notes Jan, Dysuria (ICD-10 - R30.0) Jan, Urinary tract infection without hematuria, site unspecified (ICD-10 - N39.0) Urinary tract infection (UTI) home care material was printed Drink plenty fluids, get plenty of rest. Take the Macrobid and the Pyridium as prescribed until gone. Take Tylenol or Motrin for aches pains or fevers. Follow-up with your family physician if no improvement in 2 to 3 days. [employer] Other 08-18-2022 Evaluation note* Encounter Date Diagnosis Assessment Notes Treatment Notes Treatment Clinical Notes Nov, Flank pain (ICD-10 - R10.9) Nov, Acute cystitis with hematuria (ICD-10 - N30.01) Take medication as directed. Urine analysis shows abnormalities today in office. Urine culture will be sent to lab. Will call with results if warranted. Increase fluid intake. Follow hygiene guidelines such as wiping front to back, avoid using perfumed lotions, bath beads, bubble bath. Recommend follow up with primary care provider after treatment completed to make sure infection has cleared. Patient states she would like to divert STI testing until after UTI is treated to reduce costs. [employer] Other 12-29-2021 Evaluation note* Encounter Date Diagnosis Assessment Notes Treatment Notes Treatment Clinical Notes Mar, Acute sinusitis, recurrence not specified, unspecified location (ICD-10 - J01.90) Drink plenty fluids, get plenty of rest. Take the prednisone as prescribed until gone. Use the Flonase inhaler as prescribed until your symptoms improve. Take Tylenol Motrin for aches pains or fevers. Follow-up with your family physician if no improvement in 2 to 3 days. [employer] Other Evaluation noteNo assessment information available [facility] Work Phone: Evaluation note* Diagnosis Annual physical exam- Primary Routine general medical examination at a health care facility Blood tests for routine general physical examination Laboratory examination ordered as part of a routine general medical examination Fatigue, unspecified type Vitamin D deficiency Encounter for screening mammogram for malignant neoplasm of breast Mixed hyperlipidemia Hypokalemia Hypopotassemia documented [facility]* Diagnosis BV (bacterial vaginosis) Unspecified vaginitis and vulvovaginitis UTI symptoms Yeast infection documented in this encounter [facility] Healthcare[facility]* Diagnosis Urinary tract infection symptoms- Primary Hypokalemia Hypopotassemia Viral upper respiratory tract infection Acute upper respiratory infections of unspecified site Thoracic myofascial strain, initial encounter documented in this encounter [facility] SystemHistory general Narrative - Reported* Type Description Date Medical History hyperlipidemia [employer] Other Instructions* Attachments The following attachments cannot be sent through Care Everywhere. * Yearly Physical for Adults (Cambodian) documented in this encounterProProvidence HospitalNew Earth Solutions SystemInstructionsNot on file documented in this [facility] Chief Complaint and Reason for Visit Chief Complaint R10.9 Advance Directives No Advanced Directives Records Found Advance Directive Response Recorded Date/ Time Advance Directives No November 19, 2021 6:55am Summary Purpose Family History No Family History Records FoundNo Family History Records FoundNo Family History Records FoundNo Family History Records FoundNo Family History Records Found Additional Source Comments REASON FOR VISIT (unrecogniz ed section and content) Reason Comments Annual Exam Reason Comments BV Reason Comments Urinary Tract Infection Care Teams (unrecognized sec tion and content) Team Status: Inactive Member Role Status Dates MACKENZIE Abad Attending Provider Active PHYSICIAN NO FAMILY Primary Care Provider Active Team Status: Active Member Role Status Dates PHYSICIAN NO FAMILY Primary Care Provider Active Team Status: Inactive Member Role Status Dates Damaris Willingham , SAS STATISTICAL PROGRAMMER-C Attending Provider Active Finished Yarn Examiner Relationship Specialty Start Date End Date Lm Laurence Claudio APRN-SAURAV [address] [place] [address] PCP - General Family Medicine 02/18/19 Finished Yarn Examiner Relationship Specialty Start Date End Date Lm Laurence Claudio APRN-SAURAV [address] [place] [address] PCP - General Family Medicine 02/18/19 Goals (unrecognized section and content) Goals may be documented in a n alternate section INFORMATION SOURCE (unrecogn ized section and content) DATE CREATED AUTHOR 01/26/2022 [facility] DATE CREATED AUTHOR AUTHOR'S ORGANIZ ATION 02/26/2022 [facility] DATE CREATED AUTHOR AUTHOR'S ORGANIZ ATION 01/11/2023 [facility] DATE CREATED AUTHOR AUTHOR'S ORGANIZ ATION 06/07/2023 [facility] DATE CREATED AUTHOR AUTHOR'S ORGANIZ ATION 08/17/2023 [facility]ms Specialists EPIC FOR RECORDS PERTAINING TO PATIENTS WHO ARE OR HAVE BEEN ENROLLED IN A CHEMICAL DEPENDENCY/SUBSTANCEABUSE PROGRAM, SOME INFORMATION MAY BE OMITTED. This clinical summary was aggregated from multiple sources. Caution should be exercised in using it in the provision of clinical care. This summary normalizes information from multiple sources, and as a consequence, information in this document may materially change the coding, format and clinical context of patient data. In addition, data may be omitted in some cases. CLINICAL DECISIONS SHOULD BE BASED ON THE PRIMARY CLINICAL RECORDS. [employer] provides no warranty or guarantee of the accuracy or completeness of information in this document.
[2023-09-12 17:00] LABS: Thyroid Stimulating Hormone 1.493 uIU/mL (0.358-3.740)
[2023-09-12 17:12] LABS: Estimated Average Glucose 117 mg/dL; Glycohemoglobin A1C 5.7 % (4.5-6.2)
== END 2023-09-12 15:52 | disposition home or self-care (01) ==
LOC: LAB 15:53
PROVIDERS: PCP Nurse Practitioner; Visit Provider Obstetrics & Gynecology
DX: R53.83 Other fatigue (principal)
CPT/HCPCS: 36415; 83036; 84439; 84443

== ENCOUNTER 2024-12-12 19:28 | Outpatient (REF) | payer OTHER, SELFPAY ==
--- OUTSIDE RECORDS SUMMARY | 2024-12-12 13:30 | XMS_ITS | Encounter Summary ---
Author Organization [facility] Address [address] [place] [address] Care Team Providers Care Pocket Setter Name Role Phone Gregoria Amato PHILIP Unavailable [phone] Lev Padilla MD Primary Care Provider [phone] Sabrina Weaver NP Unavailable [phone] Reason for Visit * Reason Comments Well Women Visit Encounter Details Date Type Department Care Team (Latest Contact Info) Description 12/12/2024 1:30 PM EDT Procedure Visit [facility] [address] [facility] [address] Ale Rowan PA [address] [place], [place] [id number] Well woman exam with routine gynecological exam; Breast cancer screening by mammogram; Postmenopausal state; Vaginal itching; Symptoms, such as flushing, sleeplessness, headache, lack of concentration, associated with the menopause; Yeast infection Social History Tobacco Use Types Packs/Day Years Used Date Smoking Tobacco: Never Smokeless Tobacco: Never Alcohol Use Standard Drinks/Week Comments Yes 1 (1 standard drink = 0.6 oz pur e alcohol) AUDIT-C Answer Date Recorded Q1: How often do you have a drink containing alcohol? Never 07/29/2024 Q2: How many drinks containi ng alcohol do you have on a typical day when you are drinking? Patient does not drink Q3: How often do you have si x or more drinks on one occasion? Never 07/29/2024 PHQ-2 Answer Date Recorded Patient Health Questionnaire-2 Score 0 07/29/2024 Comments No Sex and Gender Information Value Date Recorded Sex Assigned at Not on file Legal Sex Female 6:53 PM EDT Gender Identity Not on file Sexual Orientation Not on file documented as of this encounter Last Filed Vital Signs Vital Sign Reading Time Taken Comments Blood Pressure 120/82 12/12/2024 1:37 PM EDT Pulse - - Temperature - - Respiratory Rate - - Oxygen Saturation - - Inhaled Oxygen Concentration - - Weight 53 kg (116 lb 12.8 oz) 12/12/2024 1:37 PM EDT Height - - Body Mass Index 21.36 07/29/2024 4:46 PM EDT documented in this encounter Progress Notes * CARTER Perez - 12/12/2024 1:30 PM EDT Reason for Appointment: Patient ID: Kassi Garza is a 59 y.o. female who presents for Well Women Visit Patient presents today for Annual Exam. MEDICATIONS Current Outpatient Medications Medication Instructions albuterol HFA 90 mcg/act inhaler 2 puffs, Inhalation, Every 4 hours PRN ergocalciferol (VITAMIN D2) 1.25 mg, Oral, Weekly fluticasone (Flonase) 50 MCG/ACT nasal spray 2 sprays, Each Nostril, Daily, Shake gently. Before first use, prime pump. After use, clean tip and replace cap. 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 Hyperlipidemia 01/08/2024 Irritable bowel syndrome 12/05/2007 Plantar fasciitis of left foot 02/14/2019 Tachycardia 02/14/2019 Urinary tract infection without hematuria 07/03/2019 B12 deficiency 04/11/2024 Anemia 04/11/2024 Hot flashes 04/11/2024 Vitamin D deficiency 04/11/2024 Fatigue 04/11/2024 Resolved Ambulatory Problems Diagnosis Date Noted No Resolved Ambulatory Problems Past Medical History: Diagnosis Date Asthma (HCC) BMI 22.0-22.9, adult Breast cancer screening by mammogram Ear problems Encounter for gynecological examination (general) (routine) without abnormal findings Post menopausal syndrome HISTORY PAST MEDICAL HISTORY SOCIAL HISTORY Past Medical History: Diagnosis Date Asthma (HCC) BMI 22.0-22.9, adult Breast cancer screening by mammogram Ear problems Encounter for gynecological examination (general) (routine) without abnormal findings Post menopausal syndrome Social History Tobacco Use Smoking status: Never Smokeless tobacco: Never Substance Use Topics Alcohol use: Yes Alcohol/week: 1.0 - 2.0 standard drink of alcohol Types: 1 - 2 Standard drinks or equivalent per week Drug use: Never FAMILY HISTORY Family History Problem Relation Name Age of Onset Hypertension Father Asthma Father Hyperlipidemia Father Diabetes Sister SURGICAL HISTORY Past Surgical History: Procedure Laterality Date FEMINIZING AUGMENTATION MAMMOPLASTY Bilateral HERNIA REPAIR WMesh REVIEW OF SYSTEMS Review of Systems: Review of Systems All other systems reviewed and are negative. OBJECTIVE Objective: Physical Exam Constitutional: Appearance: Normal appearance. She is well-developed. Genitourinary: Vulva normal. Cardiovascular: Rate and Rhythm: Normal rate and [...] nursing note reviewed. Exam conducted with a middle school pe teacher present. Vitals: Estimated body mass index is 21.36 kg/m?? as calculated from the following: Height as of 07/29/24: 5' 2 . Weight as of this encounter: 116 lb 12.8 oz. BP: 120/82 No LMP recorded. Patient is postmenopausal. ASSESSMENT & PLAN ICD-10-CM 1. Well woman exam with routine gynecological exam Z01.419 THIN PREP TIS PAP AND HR HPV DNA 2. Breast cancer screening by mammogram Z12.31 Bilateral screening mammogram Bilateral screening mammogram 3. Postmenopausal state Z78.0 DEXA bone density 4. Vaginal itching N89.8 Annual: Patient presents today for an annual exam. Patient states she is doing well and has concerns for vaginal burning as well as menopausal symptoms. Pap was obtained without difficulty and patient given mammogram order to have scheduled/obtained. Patient does have vaginal itching and some rectal itching. Patient is having some hot and clammy feeling and being fatigue, she can not stay asleep she willjust awake at night. Patient asked we can do non-hormonal or hormonal medication. Patient does havedizziness when standing occasionally and vertigo ruled out by ENT. Patient cultures obtained without difficulty to rule out Yeast. Diflucan sent to pharmacy. Orders Placed This Encounter Procedures Bilateral screening mammogram DEXA bone density Follow Up: Patient is to return in one year for annual unless needed otherwise. Documented by Pratima Hernandez LPN on behalf of: CARTER Perez documented in this encounter Plan of Treatment Upcoming Encounters Date Type Department Care Team (Late st Contact Info) Description 01/27/2025 4:40 PM EDT Office Visit [facility] [address] [place] [address] Sabrina Weaver, TWISTER TENDER PAPER [address] [place] [address] 12/16/2025 3:00 PM EDT Procedure Visit [facility] [address] [facility] [address] [place] [phone] Ale Rowan PA [address] [place] [address] Scheduled Orders Name Type Priority Associated Diagnoses Orde r Schedule Bilateral screening mammogram Imaging Routine Breast cancer screening by mammogram Expected: 12/12/2024, Expires: 02/11/2026 DEXA bone density Imaging Routine Postmenopausal state Expected: 12/12/2024 (Approximate), Expires: 12/12/2025 THIN PREP TIS PAP AND HR HPV DNA Pathology and Cytology Routine Well woman exam with routine gynecological exam Ordered: 12/12/2024 SURESWAB(R) ADVANCED VAGINITIS PLUS, TMA Pathology and Cytology Routine Vaginal itching Ordered: 12/12/2024 CHLAMYDIA TRACHOMATIS (GENITO/STI) Lab Routine Vaginal itching Ordered: 12/12/2024 Neisseria gonorrhea DNA probe, direct Lab Routine Vaginal itching Ordered: 12/12/2024 documented as of this encounter Goals Goal Patient Goal Type Associated Problems Recent Progress Patient-Stated? Author Help patient manage antidepressant medication Care Plan Patient on antidepressant monitoring plan No Ilene Page MA Baseline PHQ-9 Care Plan Baseline PHQ-9 No Ilene Page MA documented as of this encounter Visit Diagnoses Diagnosis Well woman exam with routine gynecological exam Routine gynecological examination Breast cancer screening by mammogram Postmenopausal state Asymptomatic postmenopausal status (age-related) (natural) Vaginal itching Pruritus of genital organs Symptoms, such as flushing, sleeplessness, headache, lack of concentration, associated with the menopause Yeast infection documented in this encounter Additional Health Concerns Active Problems Noted Date Diagnosed Date Patient on antidepressant monitoring plan 2024 Baseline PHQ-9 07/29/2024 documented as of this encounter Care Teams Pocket Setter Relationship Specialty Start Date End Date Lev Padilla MD [address] [place] [address] PCP - General Family Medicine 04/11/24 Gregoria Amato CRNP Referring Physician Nurse Practitioner 01/10/24 Sabrina Waever NP [address] [place] [address] Nurse Practitioner Family Medicine 04/11/24 documented as of this encounter
--- OUTSIDE RECORDS SUMMARY | 2024-12-12 19:31 | XMS_ITS | Clinical Summary ---
Author Organization [facility] Address [id number] [place] [address] Care Team Providers Care Pharmacy Technician Name Role Phone No Pcp, No Pcp Primary Care Provider Unavailabl e Allergies No known active allergies Medications fluticasone propionate (FLONASE) 50 mcg/actuation nasal spray instill 2 (TWO) Sprays Nasally DAILY FOR 14 DAYS 02/26/20 23 Active cholecalciferol, vitamin D3, 5,000 units tabletIndications: Vitamin D deficiency Take 1 tablet (5,000 Units total) by mouth in the morning. 90 each 2 03/23/20 23 Active ferrous sulfate 325 (65 FE) mg tablet Take 1 tablet (325 mg total) by mouth in the morning. Active methylPREDNISolone (MEDROL, CHRISTIANNE,) 4 mg tabletIndications: 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 follow package directions 21 tablet 10/25/19 24 Active Additional Information Patient not taking.Reported on 10/31/2023 rosuvastatin (CRESTOR) 10 mg tabletIndications: Mixed hyperlipidemia Take 1 tablet (10 mg total) by mouth in the morning. 90 tablet 3 10/25/19 24 Active Active Problems Problem Noted Date Diagnosed Date Urinary tract infection without hematuria 2019 Tachycardia 02/14/2019 Plantar fasciitis of left foot 02/14/2019 Hyperlipidemia Overview (02/28/2018): elevated on screening test Encounters Date Type Department Care Team Description 12/12/2024 Refill [facility] [address] [place] [address] Elisa Carrasquillo, MILAGROS Mixed hyperlipidemia from Last 3 Months Family History Medical History Relation Name Comments Hyperlipidemia Father Hypertension Father Depression Mother Hyperlipidemia Sister Relation Name Status Comments Brother Alive Father Alive Mother Alive Sister Alive Social History Tobacco Use Types Packs/Day Years Used Date Smoking Tobacco: Never Smokeless Tobacco: Never Tobacco Cessation:Counseling Given: Not Answered Alcohol Use Standard Drinks/Week Comments Yes 2 (1 standard drink = 0.6 oz pur e alcohol) socially AUDIT-C Answer Date Recorded Frequency of Alcohol Consumption 2-4 times a mon02/26/2018 Average Number of Drinks Not on file 018 Frequency of Binge Drinking Not on file 02/02 PHQ-2 Answer Date Recorded Total Score 0 10/25/2023 Childcare Answer Date Recorded Childcare Unknown 09/12/2018 Employment Answer Date Recorded Employment Unknown 09/12/2018 Hunger Screening Answer Date Recorded Within the past 12 months we worried whether our food would run out before we got money to buy more. Never True 10/25/2023 Within the past 12 months th e food we bought just didn't last and we didn't have money to get more. Never True 10/25/2023 Purpose - Life Answer Date Recorded Purpose and direction in life Unknown Comments No Sex and Gender Information Value Date Recorded Sex Assigned at Not on file Legal Sex Female 11:27 AM EDT Gender Identity Not on file Sexual Orientation Not on file Last Filed Vital Signs Vital Sign Reading Time Taken Comments Blood Pressure 140/84 10/31/2023 9:25 AM EDT Pulse 80 10/31/2023 9:25 AM EDT Temperature 36.7 C (98.1 F) 10/31/2023 9:25 AM EDT Respiratory Rate 18 10/31/2023 9:25 AM EDT Oxygen Saturation 97% 10/31/2023 9:25 AM EDT Inhaled Oxygen Concentration - - Weight 49.4 kg (109 lb) 10/31/2023 9:25 AM EDT Height 157.5 cm (5' 2 ) 10/31/2023 9:25 AM EDT Body Mass Index 19.94 10/31/2023 9:25 AM EDT Plan of Treatment Health Maintenance Due Date Last Done Comments DTaP,Tdap and Td Vaccines (1 - Tdap) 1985 Zoster (Shingles) Vaccine (1 of 2) 2016 Mammogram 08/03/2018 08/03/2017 Depression Screening 10/24/2024 10/25/2023 Adult BMI Screening 10/30/2024 10/31/2023 Tobacco Screening 10/30/2024 10/31/2023 Influenza Vaccine 12/02/2024 Pap Smear 08/14/2026 08/15/2023 Colonoscopy 12/28/2031 12/27/2021, 12/27/2021 Medical Devices Not on file Procedures Procedure Name Priority Date/Time Associated Diagnosis Comments PROVATION COLONOSCOPY Routine 12/27/2021 6:58 AM EDT MAMM SCREENING BILATERAL W CAD Routine 08/03/2017 Encounter for screening mammogram for malignant neoplasm of breast from Last 3 Months or Most Recently Relevant to Health Maintenance Results * Colonoscopy Report (12/27/2021 6:58 AM EDT) Narrative SYSTEMGENERATED, DOCUMENTATION - 12/27/2021 6:58 AM EDT This order has been auto-finalized for image and report archival in PACs. *For full report details, please reach out to your physician. Effective 08/18/20 this image will be visible to you in MyChart.* us Jae Lazaro DO IMG OR IMG ORDERABLES Final Result * Mammography screening bilateral with CAD (08/03/2017) Anatomical Region Laterality Modality Breast Bilateral Mammography 08/03/2017 us Neli Poon DO IMG MAMMOGRAPHY ORDERABLES Final Result from Last 3 Months or Most Recently Relevant to Health Maintenance Insurance [employer] Care Teams Pharmacy Technician Relationship Specialty Start Date End Date No Pcp, [place] [address] PCP - General Family Medicine 12/12/24
--- OUTSIDE RECORDS SUMMARY | 2024-12-12 19:31 | XMS_ITS | Clinical Summary ---
Author Organization [facility] Address [address], [address] [place] [address] Care Team Providers Care Embossing Machine Operator Helper Name Role Phone AmatoViriGregoria J TYPE BAR AND SEGMENT ASSEMBLER - ENVELOPE FOLDING MACHINE ADJUSTER Primary Care Prov ider Allergies No known active allergies Medications pravastatin (PRAVACHOL) 10 MG tablet Take 1 tablet by mouth daily Active Active Problems Problem Noted Date Diagnosed Date Encounter for cosmetic procedure 01/18/2023 Social History Tobacco Use Types Packs/Day Years Used Date Smoking Tobacco: Never Smokeless Tobacco: Never Tobacco Cessation:Counseling Given: Not Answered Alcohol Use Standard Drinks/Week Comments Yes 0 (1 standard drink = 0.6 oz pur e alcohol) socially-x3 days a week Interpersonal Safety Domain Source: IP Abuse Scr eening Answer Date Recorded Read-Only, Retired: Physical Abuse Denies 01/10/2023 Read-Only, Retired: Verbal Abuse Denies 01/10/2023 Read-Only, Retired: Emotional abuse Denies 01/10/2023 Read-Only, Retired: Financial Abuse Denies 01/10/2023 Read-Only, Retired: Sexual abuse Denies 01/10/2023 Comments No Sex and Gender Information Value Date Recorded Sex Assigned at Not on file Legal Sex Female 3:28 PM EDT Gender Identity Not on file Sexual Orientation Not on file Last Filed Vital Signs Vital Sign Reading Time Taken Comments Blood Pressure 134/99 01/10/2023 12:45 PM EDT Pulse 95 01/10/2023 12:45 PM EDT Temperature 36.6 C (97.8 F) 01/10/2023 11:17 AM EDT Respiratory Rate 20 01/18/2023 11:08 AM EDT Oxygen Saturation 97% 01/10/2023 12:45 PM EDT Inhaled Oxygen Concentration - - Weight 51.3 kg (113 lb) 02/06/2023 4:09 PM EST Height 157.5 cm (5' 2 ) 02/06/2023 4:09 PM EST Body Mass Index 20.67 02/06/2023 4:09 PM EST Plan of Treatment Health Maintenance Due Date Last Done Comments Lipids 1976 Depression Screen 1978 HIV screen 1981 Hepatitis C screen 1984 DTaP/Tdap/Td vaccine (1 - Tdap) 1985 Hepatitis B vaccine (1 of 3 - 19+ 3-dose series) 1985 Pap smear 12/09/1987 Cervical cancer screen 1996 HPV (without or with Pap) 1996 Colonoscopy 12/09/2011 Colorectal Cancer Screen 12/09/2011 FIT/FOBT: Average risk 12/09/2011 Fecal-DNA (Cologuard): [place] ge risk 12/09/2011 Sigmoidoscopy/CT colonography 12/09/2011 Pneumococcal 50+ years Vacci ne (1 of 1 - PCV) 2016 Shingles vaccine (1 of 2) 2016 Breast cancer screen 08/04/2019 08/03/2017 Flu vaccine (#1) 11/01/2024 COVID-19 Vaccine (1 - 2023-2 5 season) 2024 Hepatitis A vaccine Aged Out No longe r eligible based on patient's age to complete this topic Hib vaccine Aged Out No longer eligi ble based on patient's age to complete this topic Meningococcal (ACWY) vaccine Aged Out No longer eligible based on patient's age to complete this topic Meningococcal B vaccine Aged Out No l onger eligible based on patient's age to complete this topic Polio vaccine Aged Out No longer elig ible based on patient's age to complete this topic Care Teams Embossing Machine Operator Helper Relationship Specialty Start Date End Date Gregoria Amato, TYPE BAR AND SEGMENT ASSEMBLER - ENVELOPE FOLDING MACHINE ADJUSTER PCP - General 11/09/22
--- OUTSIDE RECORDS SUMMARY | 2024-12-12 19:31 | XMS_ITS | Encounter Summary ---
Author Organization [facility] Address [id number] [address] [place] [address] Care Team Providers Care Firearms Instructor Name Role Phone No Pcp, No Pcp Primary Care Provider Unavailabl e Encounter Details Date Type Department Care Team (Late st Contact Info) Description 03/30/2021 Telephone [facility] [address] [address] Danuta Nagel MA Social History Tobacco Use Types Packs/Day Years Used Date Smoking Tobacco: Never Smokeless Tobacco: Never Alcohol Use Standard Drinks/Week Comments Yes 0 (1 standard drink = 0.6 oz pur e alcohol) socially AUDIT-C Answer Date Recorded Frequency of Alcohol Consumption 2-4 times a mon02/26/2018 Average Number of Drinks Not on file 018 Frequency of Binge Drinking Not on file 02/02 PHQ-2 Answer Date Recorded Total Score 0 02/17/2021 Childcare Answer Date Recorded Childcare Unknown 09/12/2018 Employment Answer Date Recorded Employment Unknown 09/12/2018 Purpose - Life Answer Date Recorded Purpose and direction in life Unknown Comments No Sex and Gender Information Value Date Recorded Sex Assigned at Not on file Legal Sex Female 11:27 AM EDT Gender Identity Not on file Sexual Orientation Not on file COVID-19 Exposure Response Date Recorded In the last month, have you been in contact with someone who was confirmed or suspected to have Coronavirus / COVID-19? No / Unsure 03/24/2021 1:00 PM EST documented as of this encounter Miscellaneous Notes * Telephone Encounter - Danuta Nagel MA - 03/30/2021 9:29 AM EST Nausea, diarrhea,headache low grade 100.1 last night 99.3 this am wants to know what else to do, thought she would feel better, but feels worse. Tested positive at [facility] on 03/22-just did video visit on 03/24 with you. Told will call when Viri reviews * Telephone Encounter - LORENZA Sandoval - 03/30/2021 9:29 AM EST I went back on her note, initial symptom date was last Monday.She is approaching day 9 and was planning on returning end of week. Fevers are not uncommon but if she is still returning in a few days to work, she will have to wait till day 14 if running fevers close to 100. Increase fluids, Tylenol or Motrin. My concern is wheezing, increased cough, and inability to walk across room and needing to s it and rest due to shortness of breath. I believe she is checking spo2. Can you inquire if she is checking. * Telephone Encounter - Danuta Nagel MA - 03/30/2021 9:29 AM EST Called pt and informed of all * Telephone Encounter - Danuta Nagel MA - 03/30/2021 9:29 AM EST She is on shutdown with [employer] right now, doesn't return til after new year, also, doesn't checkpulse ox, at home documented in this encounter Plan of Treatment Not on file documented as of this encounter Visit Diagnoses Not on filedocumented in this encounter Additional Health Concerns Assessment Noted Time PHQ-9 Depression Total Score: 0 02/18/20 21 4:05 PM EST documented as of this encounter Care Teams Firearms Instructor Relationship Specialty Start Date End Date No Pcp, [place] [address] PCP - General Family Medicine 12/12/24 documented as of this encounter
--- OUTSIDE RECORDS SUMMARY | 2024-12-12 19:31 | XMS_ITS | Clinical Summary ---
Author Organization [facility] Address [address] [place] [address] Care Team Providers Care Language Specialist Name Role Phone Amato, Gregoria PHILIP Unavailable [phone] Lev Padilla MD Primary Care Provider [phone] Sabrina Weaver LINEN ROOM SUPERVISOR Unavailable [phone] Allergies No known active allergies Medications rosuvastatin (Crestor) 10 MG tablet Take 10 mg by mouth Daily Active albuterol HFA 90 mcg/act inhalerIndica tions:Broncho spasm Inhale 2 puffs every 4 (four) hours if needed for wheezing 18 g 11 04/11/192025 Active fluticasone (Flonase) 50 MCG/ACT nasal sprayIndicati ons:Vertigo Administer 2 sprays into each nostril Daily Shake gently. Before first use, prime pump. After use, clean tip and replace cap. 16 g 05/01/19 25 Active ergocalcifero l (Vitamin D2) 1.25 MG (08674 UT) capsuleIndica tions:Vitamin D deficiency Take 1 capsule (1.25 mg) by mouth 1 (one) time per week 12 capsule 2 07/30/19 25 2025 Active Additional Information Patient not taking.Reported on 12/12/2024 sertraline (Zoloft) 25 MG tabletIndicat ions:Anxiety Take 1 tablet (25 mg) by mouth Daily 90 tablet 09/11/19 25 Active Estradiol-Pro gesterone (Bijuva) 0.5-100 MG capsuleIndica tions:Symptom s, such as flushing, sleeplessness , headache, lack of concentration , associated with the menopause Take 50 mg by mouth at bedtime 30 capsule 3 12/13/19 25 2024 Active fluconazole (Diflucan) 150 MG tabletIndicat ions:Vaginal itching,Yeast infection Take 1 tablet (150 mg) by mouth 1 (one) time for 1 dose This is a 1 time dose, take single tablet by mouth. 1 tablet 1 12/13/19 25 2024 Active Ascorbic Acid (vitamin C) 250 MG tablet Take 250 mg by mouth Daily 2024 Discontinued montelukast (Singulair) 10 MG tabletIndicat ions:History of asthma Take 1 tablet (10 mg) by mouth at bedtime 30 tablet 11 04/11/19 25 2024 Discontinued estradiol (Estrace) 0.1 MG/GM vaginal cream INSERT ONE-HALF APPLICATORFUL DAILY FOR 14 DAYS then twice a week 09/29/19 25 2024 Discontinued(T herapy completed) estradiol (Estrace) 0.1 MG/GM vaginal creamIndicati ons:Postmenop ausal state Insert 2 g into the vagina 2 (two) times a week 42.5 g 3 11/22/19 25 2024 Discontinued Active Problems Problem Noted Date Diagnosed Date B12 deficiency 04/11/2024 Anemia 04/11/2024 Hot flashes 04/11/2024 Vitamin D deficiency 04/11/2024 Fatigue 04/11/2024 Constipation 01/08/2024 Difficulty walking 01/08/2024 Disorder of female genital organs 01/08/2024 Hyperlipidemia 01/08/2024 Overview (01/08/2024): elevated on screening test Encounter for cosmetic procedure 01/18/2023 Urinary tract infection without hematuria 2019 Plantar fasciitis of left foot 02/14/2019 Tachycardia 02/14/2019 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 Irritable bowel syndrome 12/05/2007 Encounters Date Type Department Care Team Description 12/12/2024 1:30 PM EDT Procedure Visit [facility] [address] [place] [address] [place] [address] Ale Rowan PA Well woman exam with routine gynecological exam; Breast cancer screening by mammogram; Postmenopausal state; Vaginal itching; Symptoms, such as flushing, sleeplessness, headache, lack of concentration, associated with the menopause; Yeast infection 12/12/2024 Bamboo flowsheet [facility]ERSON [address] [place] [phone] Ale Rowan PA 11/19/2024 Refill [facility] [address] [place] [phone] Soha Cee MA Postmenopausal state from Last 3 Months Family History Medical History Relation Name Comments Asthma Father Hyperlipidemia Father Hypertension Father Diabetes Sister Relation Name Status Comments Father Alive Mother Alive Sister Social History Tobacco Use Types Packs/Day Years Used Date Smoking Tobacco: Never Smokeless Tobacco: Never Tobacco Cessation:Counseling Given: Not Answered Alcohol Use Standard Drinks/Week Comments Yes 1 [...] Pressure 120/82 12/12/2024 1:37 PM EDT Pulse 99 07/29/2024 4:46 PM EDT Temperature 36.6 C (97.9 F) 07/29/2024 4:46 PM EDT Respiratory Rate 20 07/29/2024 4:46 PM EDT Oxygen Saturation 96% 07/29/2024 4:46 PM EDT Inhaled Oxygen Concentration - - Weight 53 kg (116 lb 12.8 oz) 12/12/2024 1:37 PM EDT Height 157.5 cm (5' 2 ) 07/29/2024 4:46 PM EDT Body Mass Index 21.36 07/29/2024 4:46 PM EDT Plan of Treatment Upcoming Encounters Date Type Department Care Team (Late st Contact Info) Description 01/27/2025 4:40 PM EDT Office Visit [facility] [address] [place] [phone] Sabrina Weaver NP [address] [place], [place] [phone] 12/16/2025 3:00 PM EDT Procedure Visit [facility] [address] [place] [address] Ale Rowan PA [address] [facility] [place] [address] Health Maintenance Due Date Last Done Comments CT Colonography 1966 FIT-DNA 1966 FIT 1966 FOBT 1966 Sigmoidoscopy 1966 Influenza Vaccine (#1) 2024 Mammogram 05/22/2025 05/22/2024, 08/03/2017 Cervical Cancer Screening 08/14/2028 HPV/Cotest 08/14/2028 Pap Smear 08/14/2028 08/15/2023 Colonoscopy 12/28/2031 12/27/2021, 12/27/2021, 12/03 Colorectal Cancer Screening 12/28/2031 Goals Goal Patient Goal Type Associated Problems Recent Progress Patient-Stated? Author Help patient manage antidepressant medication Care Plan Patient on antidepressant monitoring plan No Ilene Page MA Baseline PHQ-9 Care Plan Baseline PHQ-9 No Ilene Page MA Procedures Procedure Name Priority Date/Time Associated Diagnosis Comments MAMMOGRAM, BILATERAL, SCREEN:* Routine 05/22/2024 4:46 PM EST PAP SMEAR Routine 08/15/2023 12:00 AM EDT from Last 3 Months or Most Recently Relevant to Health Maintenance Results * MAMMOGRAM, BILATERAL, SCREEN:* (05/22/2024 4:46 PM EST) Anatomical Region Laterality Modality Radiographic Pat ging us Sabrina Weaver LINEN ROOM SUPERVISOR IMG XR PROCEDURES Final Resul t * Pap Smear (08/15/2023 12:00 AM EDT) Swab Cervical swab / Unknown us Macario Nascimentoo DO LAB CYTOLOGY ORDERABLES Final Re sult EXTERNAL LAB from Last 3 Months or Most Recently Relevant to Health Maintenance Additional Health Concerns Active Problems Noted Date Diagnosed Date Patient on antidepressant monitoring plan 2024 Baseline PHQ-9 07/29/2024 Insurance [employer] Care Teams Language Specialist Relationship Specialty Start Date End Date Lev Padilla MD [address] [place] [address] PCP - General Family Medicine 04/11/24 Gregoria Amato CRNP Referring Physician Nurse Practitioner 01/10/24 Sabrina Weaver NP [address] [place] [address] Nurse Practitioner Family Medicine 04/11/24
--- OUTSIDE RECORDS SUMMARY | 2024-12-12 19:31 | XMS_ITS | Encounter Summary ---
Author Organization [facility] Address [address] [facility] [place] [address] Care Team Providers Care Manager Facility Name Role Phone AmatoGregoria tavares PHILIP Unavailable [phone] Lev Padilla MD Primary Care Provider [phone] Sabrina Weaver ENVIRONMENTAL SERVICES ASSOCIATE Unavailable Encounter Details Date Type Department Care Team (Late st Contact Info) Description 07/29/2024 Orders Only [facility] [address] [place] [address] Sabrina Weaver ENVIRONMENTAL SERVICES ASSOCIATE [address] [place] [address] Social History Tobacco Use Types Packs/Day Years [...] on file documented as of this encounter Functional Status * Audit-C Score Answer Date of Assessment Author 0 07/29/2024 4:50 PM EDT Nell Page MA * Question Answer Date of Assessment Author Q1: How often do you have a drink containing alcohol? Never 07/29/2024 4:50 PM EDT Ilene Page MA Q2: How many drinks containing alcohol do you have on a typical day when you are drinking? Patient does not drink 07/29/2024 4:50 PM EDT Ilene Page MA Q3: How often do you have six or more drinks on one occasion? Never 07/29/2024 4:50 PM EDT Ilene Page MA * Over the past 2 weeks, how often have you been bothered by any of the following problems? Question Answer Date of Assessment Author Little interest or pleasure in doing things Not at all 07/29/2024 4:50 PM EDT Ilene Page MA Feeling down, depressed, or hopeless Not at all 07/29/2024 4:50 PM EDT Ilene Page MA Patient Health Questionnaire -2 Score 0 07/29/2024 4:50 PM EDT Ilene Page MA documented as of this encounter Plan of Treatment Upcoming Encounters Date Type Department Care Team (Late st Contact Info) Description 01/27/2025 4:40 PM EDT Office Visit [facility] [address] [place] [phone] Sabrina Weaver, ENVIRONMENTAL SERVICES ASSOCIATE [address] [place] [phone] 12/16/2025 3:00 PM EDT Procedure Visit [facility] [address] [place] [phone] Ale Rowan PA [address] [facility] [place] [address] documented as of this encounter Goals Goal Patient Goal Type Associated Problems Recent Progress Patient-Stated? Author Help patient manage antidepressant medication Care Plan Patient on antidepressant monitoring plan No Ilene Page MA Baseline PHQ-9 Care Plan Baseline PHQ-9 No Ilene Page MA documented as of this encounter Procedures Procedure Name Priority Date/Time Associated Diagnosis Comments MAMMOGRAM, BILATERAL, SCREEN:* Routine 05/22/2024 4:46 PM EST documented in this encounter Results * MAMMOGRAM, BILATERAL, SCREEN:* (05/22/2024 4:46 PM EST) Anatomical Region Laterality Modality Radiographic Pat ging us Sabrina Weaver NP IMG XR PROCEDURES Final Resul t documented in this encounter Visit Diagnoses Not on filedocumented in this encounter Additional Health Concerns Active Problems Noted Date Diagnosed Date Patient on antidepressant monitoring plan 2024 Baseline PHQ-9 07/29/2024 documented as of this encounter Care Teams Manager Facility Relationship Specialty Start Date End Date Lev Padilla MD [address] [place] [address] PCP - General Family Medicine 04/11/24 Gregoria Amato CRNP Referring Physician Nurse Practitioner 01/10/24 Sabrina Weaver NP [address] [place] [address] Nurse Practitioner Family Medicine 04/11/24 documented as of this encounter
--- OUTSIDE RECORDS SUMMARY | 2024-12-12 19:31 | XMS_ITS | Encounter Summary ---
Author Organization [facility] Address [id number] [address] [place] [address] Care Team Providers Care Sandwich Counter Attendant Name Role Phone No Pcp, No Pcp Primary Care Provider Unavailabl e Reason for Visit * Reason Onset Date Comments Med Refill 12/12/2024 Encounter Details Date Type Department Care Team (Late st Contact Info) Description 12/12/2024 Refill [facility] - Family Medicine [address] [place] [address] Elisa Carrasquillo CMA Mixed hyperlipidemia Social History Tobacco Use Types Packs/Day Years Used Date Smoking Tobacco: Never Smokeless Tobacco: Never Alcohol Use Standard Drinks/Week Comments Yes 2 [...] on file documented as of this encounter Plan of Treatment Not on file documented as of this encounter Visit Diagnoses Diagnosis Mixed hyperlipidemia documented in this encounter Additional Health Concerns Assessment Noted Time PHQ-9 Depression Total Score: 0 10/25/19 3:58 PM EDT A Body Mass Index follow-up plan has been documented for the patient 03/28/2023 12:20 PM EST documented as of this encounter Care Teams Sandwich Counter Attendant Relationship Specialty Start Date End Date No Pcp, [place] [address] PCP - General Family Medicine 12/12/24 documented as of this encounter
--- OUTSIDE RECORDS SUMMARY | 2024-12-12 19:31 | XMS_ITS | Encounter Summary ---
Author Organization [facility] Address [id number] [address] [place] [address] Care Team Providers Care Burial Vault Deliverer And Installer Name Role Phone No Pcp, No Pcp Primary Care Provider Unavailabl e Encounter Details Date Type Department Care Team (Late st Contact Info) Description 03/28/2023 Telephone [facility] - Family Medicine [address] [place] [phone] Gregoria Amato, GROCERY STORE CLERK-TERRAZZO MECHANIC [address] [place] [address] Social History Tobacco Use Types Packs/Day Years [...] PHQ-2 Answer Date Recorded Total Score 0 03/22/2023 Childcare Answer Date Recorded Childcare Unknown 09/12/2018 Employment Answer Date Recorded Employment Unknown 09/12/2018 Hunger Screening Answer Date Recorded Within the past 12 months we worried whether our food would run out before we got money to buy more. Never True 03/22/2023 Within the past 12 months th e food we bought just didn't last and we didn't have money to get more. Never True 03/22/2023 Purpose - Life Answer Date Recorded Purpose and direction in life Unknown Comments No Sex and Gender Information Value Date Recorded Sex Assigned at Not on file Legal Sex Female 11:27 AM EDT Gender Identity Not on file Sexual Orientation Not on file documented as of this encounter Miscellaneous Notes * Telephone Encounter - Trena Orr - 03/28/2023 10:55 AM EST PATIENT CAME IN THE OFFICE IN REGARDS TO HER BLOOD WORK, SHE HAS NOT HEARD ANYTHING ABOUT HER RESULTS * Telephone Encounter - LORENZA Sandoval - 03/28/2023 10:55 AM EST Is she working or off? * Telephone Encounter - Trena Orr - 03/28/2023 10:55 AM EST I believe she is working, she said to leave a message if she doesn't answer * Telephone Encounter - LORENZA Sandoval - 03/28/2023 10:55 AM EST I spoke with her. Thank you documented in this encounter Plan of Treatment Not on file documented as of this encounter Visit Diagnoses Not on filedocumented in this encounter Additional Health Concerns Assessment Noted Time PHQ-9 Depression Total Score: 0 03/22/20 23 5:20 PM EST A Body Mass Index follow-up plan has been documented for the patient 03/28/2023 12:20 PM EST documented as of this encounter Care Teams Burial Vault Deliverer And Installer Relationship Specialty Start Date End Date No Pcp, No Pcp ISABELLA [place] [address] PCP - General Family Medicine 12/12/24 documented as of this encounter
--- OUTSIDE RECORDS SUMMARY | 2024-12-12 19:31 | XMS_ITS | Encounter Summary ---
Author Organization [facility] Address [address] [place] [address] Care Team Providers Care Internal Communications Manager Name Role Phone Amato, Gregoria PHILIP Unavailable [phone] Lev Padilla MD Primary Care Provider Sabrina Weaver NP Unavailable [phone] Encounter Details Date Type Department Care Team (Late st Contact Info) Description 12/12/2024 Bamboo flowsheet [facility] [address] [facility] [place] [address] Ale Rowan PA [address] [address] [place], [facility] Social History Tobacco Use Types Packs/Day Years [...] [facility] [address] [address] Sabrina Weaver NP [address] [address] 12/16/2025 3:00 PM EDT Procedure Visit [facility] [address] [place] [phone] Ale Rowan PA [address] [facility] [place] [address] documented as of this encounter Goals Goal [...] documented as of this encounter Care Teams Internal Communications Manager Relationship Specialty Start Date End Date Lev Padilla MD [address] [place] [address] PCP - General Family Medicine 04/11/24 Gregoria Amato CRNP Referring Physician Nurse Practitioner 01/10/24 Sabrina Weaver NP [address] [place] [address] Nurse Practitioner Family Medicine 04/11/24 documented as of this encounter
--- OUTSIDE RECORDS SUMMARY | 2024-12-12 19:31 | XMS_ITS | Encounter Summary ---
Author Organization [facility] Address [address] [place] [address] Care Team Providers Care Court Manager Name Role Phone Gregoria Amato PHILIP Unavailable [phone] Lev Padilla MD Primary Care Provider Sabrina Weaver OBSTETRICIAN/GYNECOLOGIST Unavailable Encounter Details Date Type Department Care Team (Late st Contact Info) Description 07/29/2024 Results Follow-Up [facility] [address] [place] [address] Sabrina Weaver OBSTETRICIAN/GYNECOLOGIST [address] [place] [address] Lipid panel, Vitamin D 25 hydroxy Total Social History Tobacco Use Types Packs/Day Years [...] [facility] [address] [place] [phone] Sabrina Weaver, OBSTETRICIAN/GYNECOLOGIST [address] [place] [phone] 12/16/2025 3:00 PM EDT Procedure Visit [facility] [address] [facility] [place] [address] Ale Rowan PA [address] [facility] [place] [address] documented as of this encounter Goals Goal [...] documented as of this encounter Care Teams Court Manager Relationship Specialty Start Date End Date Lev Padilla MD [address] [place] [address] PCP - General Family Medicine 04/11/24 Gregoria Amato CRNP Referring Physician Nurse Practitioner 01/10/24 Sabrina Weaver NP [address] [place] [address] Nurse Practitioner Family Medicine 04/11/24 documented as of this encounter
--- OUTSIDE RECORDS SUMMARY | 2024-12-12 19:35 | XMS_ITS | CCD ---
Author Organization [facility] Care Team Providers Care Education Assistant Name Role Phone Damaris Willingham Unavailable Reyna Cruz Unavailable MACKENZIE Cruz Attending Provider NO FAMILY, PHYSICIAN Primary Care Provider ELIAS Odom Attending Provider Unavail able NADIRA, DR ARREDONDO Admitting Unavailable KARASIK, DR ARREDONDO Attending Unavailable KARASIK, DR ARREDONDO Consulting Unavailable KARASIK, DR ARREDONDO Admitting Unavailable KARASIK, DR ARREDONDO Attending Unavailable KARASIK, DR ARREDONDO Consulting Unavailable Paula HARRIS Admitting UnavailPaula Crowley Attending UnavailLAURENCE Mann Primary Care Unavailable Paula HARRIS Referring UnavailLAURENCE Mann Primary Care Unavailable Unavailable Primary Care Provider UnavailSARAH Kulkarni Referring Unavailable LAURENCE AMATO Primary Care Unavailable LAURENCE AMATO Referring Unavailable LAURENCE AMATO Primary Care Unavailable LAURENCE AMATO Primary Care Unavailable KIKO JOSEPH Attending UnavailFalguni Arenas Admitting Unavailable Falguni Hurtado Attending Unavailable MARGARITO Hurtado Attending Provider Laurence Eaton Unavailable Lev Padilla MD Primary Care Provider Sabrina Weaver NP Unavailable [phone] Lm PIMENTEL-Laurence MG Primary Care Provid er Laurence Eaton Unavailable [phone] SABRINA WEAVER Attending Unavailable ALE DORANTES Attending Unavailable SABRINA WEAVER Attending Unavailable GWEN DEL ANGEL Attending Unavailable SABRINA WEAVER Referring Unavailable SABRINA WEAVER Attending Unavailable MACARIO ANDRADE Attending Unavailable ALVAREZ NGUYEN Attending Unavailable Medications Current Medications Medication Drug Class(es) Dates Sig (Normalized) Sig (Original) [id number] 200 actuat albuterol 0.09 mg/actuat metered dose inhaler (13 sources) beta2-Adrenergic Agonist Start: 04-11-2024 End: 04-11-2025 take 2 puff(s) by inhalation every four hours for wheezing albuterol HFA 90 mcg/act inhaler Indications: Bronchospasm Inhale 2 puffs every 4 (four) hours if needed for wheezing 18 g 11 04/11/2024 04/11/2025 Active cholecalciferol 0.125 mg oral tablet (17 sources) Vitamin D Start: 03-23-2023 take 1 tablet by mouth once in the morning cholecalciferol, vitamin D3, 5,000 units tablet Indications: Vitamin D deficiency Take 1 tablet (5,000 Units total) by mouth in the morning. 90 each 2 03/23/2023 Active End: 07-29-2024 take 1 capsule by mouth once daily cholecalciferol (Vitamin D-3) 25 MCG (1000 UT) capsule Take 1,000 Units by mouth Daily 07/29/2024 Discontinued (Therapy completed) ciprofloxacin 500 mg oral tablet (2 sources) Quinolone Antimicrobial Start: 05-11-2023 End: 05-18-2023 take 1 tablet by mouth in the morning ciprofloxacin (Cipro) 500 MG tablet Indications: Urinary Tract Infection Take 1 tablet (500 mg) by mouth in the morning and 1 tablet (500 mg) before bedtime. Do all this for 7 days. 14 tablet 0 05/11/2023 05/18/2023 Active docusate sodium 100 mg oral capsule (2 sources) Start: 05-01-2024 End: 05-11-2024 take 1 capsule by mouth in the morning docusate sodium (Colace) 100 MG capsule Indications: Other constipation Take 1 capsule (100 mg) by mouth in the morning and 1 capsule (100 mg) before bedtime. Do all this for 10 days. 20 capsule 05/01/2024 05/11/2024 Active doxycycline monohydrate 100 mg oral capsule (1 source) Tetracycline-class Drug Start: 11-18-2021 take 1 capsule by mouth every twelve hours Doxycycline Monohydrate 100 MG 1 capsule Orally every 12 hrs for 7 days Nov, Active ergocalciferol 1.25 mg oral capsule (12 sources) Provitamin D2 Compound Start: 05-02-2024 End: 04-07-2025 take 1 capsule by mouth every week ergocalciferol (Vitamin D2) 1.25 MG (54284 UT) capsule Indications: Vitamin D deficiency Take 1 capsule (1.25 mg) by mouth 1 (one) time per week 12 capsule 2 07/29/2024 04/07/2025 Active Estradiol / Progesterone (1 source) Progesterone, Estrogen Start: 12-12-2024 End: 01-11-2025 take 0.5-100 mg by mouth at bedtime Estradiol-Progester one (Bijuva) 0.5-100 MG capsule Indications: Symptoms, such as flushing, sleeplessness, headache, lack of concentration, associated with the menopause Take 50 mg by mouth at bedtime 30 capsule 3 12/12/2024 01/11/2025 Active fluconazole 150 mg oral tablet (4 sources) Azole Antifungal Start: 12-12-2024 End: 12-12-2024 take 1 tablet by mouth once, then take 1 tablet by mouth once fluconazole (Diflucan) 150 MG tablet Indications: Vaginal itching , Yeast infection Take 1 tablet (150 mg) by mouth 1 (one) time for 1 dose This is a 1 time dose, take single tablet by mouth. 1 tablet 1 12/12/2024 12/12/2024 Active Start: 05-11-2023 End: 05-11-2023 take 1 tablet [...] antibiotics completed for 1 days Nov, Active fluticasone propionate 0.05 mg/actuat metered dose nasal spray (14 sources) Corticosteroid Start: 05-01-2024 End: 05-31-2024 take 2 spray(s) nasal route once daily fluticasone (Flonase) 50 MCG/ACT nasal spray Indications: Vertigo Administer 2 sprays into each nostril Daily Shake gently. Before first use, prime pump. After use, clean tip and replace cap. 16 g 05/01/2024 Active Start: 02-25-2023 take 2 spray(s) nasa l route once daily fluticasone propionate (FLONASE) 50 mcg/actuation nasal spray instill 2 (TWO) Sprays Nasally DAILY FOR 14 DAYS 02/25/2023 Active Start: 03-31-2021 take 2 spray(s) nasa l route once daily Fluticasone Propionate 50 MCG/ACT 2 sprays Nasally Once a day for 14 day(s) Mar, Active metroNIDAZOLE 500 mg oral tablet (2 [...] days. 10 tablet 0 03/23/2023 03/28/2023 Active rosuvastatin 10 mg oral capsule (20 sources) HMG-CoA Reductase Inhibitor Start: 07-25-2024 take 1 tablet by mouth once daily Rosuvastatin 10 mg tablet Active 10 MG PO Daily July 25, 2024 12:00am Start: 10-30-2023 End: 01-09-2024 Rosuvastatin 10 mg tablet Discontinued 10 MG PO October 30, 2023 12:00am January 09, 2024 11:28am Start: 10-25-2023 take 1 tablet by mir th in the morning rosuvastatin (CRESTOR) 10 mg tablet Indications: Mixed hyperlipidemia Take 1 tablet (10 mg total) by mouth in the morning. 90 tablet 3 10/25/2023 Active sertraline 25 mg oral tablet (13 sources) Serotonin Reuptake Inhibitor Start: 05-02-2024 End: 10-27-2024 take 1 tablet by mouth once daily sertraline (Zoloft) 25 MG tablet Indications: Anxiety Take 1 tablet (25 mg) by mouth Daily 90 tablet 09/10/2024 Active Completed/Discontinued Medications Medication Drug Class(es) Dates Sig (Normalized) Sig (Original) amoxicillin 875 mg / clavulanate 125 mg oral tablet (1 source) Penicillin-class Antibacterial Start: 03-18-2024 End: 07-25-2024 take 1 tablet by mouth twice daily Amoxicillin-Pot Clavulanate 875-125 mg tablet Discontinued 1 TAB PO Twice daily 20 01March 18, 2024 1:00am July 25, 2024 10:31am ascorbic acid 250 mg oral tablet (16 sources) Vitamin C End: 12-12-2024 take 1 tablet by mouth once daily Ascorbic Acid (vitamin C) 250 MG tablet Take 250 mg by mouth Daily 12/12/2024 Discontinued estradiol 0.1 mg/ml vaginal cream (4 sources) Estrogen Start: 11-21-2024 End: 12-12-2024 estradiol (Estrace) 0.1 MG/GM vaginal cream Indications: Postmenopausal state Insert 2 g into the vagina 2 (two) times a week 42.5 g 3 11/21/2024 12/12/2024 Discontinued Start: 05-29-2024 End: 08-27-2024 estradiol (Estrace) 0.1 MG/G M vaginal cream Indications: Vaginal burning Insert 2 g into the vagina Daily Apply 1/2 APPLICATOR daily for 2 weeks, then twice weekly 42.5 g 3 05/29/2024 08/27/2024 Active ferrous sulfate 325 mg oral tablet (6 sources) End: 01-17-2024 take 1 tablet by mouth at mealtime ferrous sulfate 325 (65 Fe) MG tablet Take 325 mg by mouth in the morning. Take with meals. 01/17/2024 Discontinued (Therapy completed) fexofenadine hydrochloride 60 mg oral tablet (5 sources) Histamine-1 Receptor Antagonist End: 04-11-2024 take 1 tablet by mouth once daily fexofenadine (Mickie) 60 MG tablet Take 60 mg by mouth Daily 04/11/2024 Discontinued (Therapy completed) linaclotide 0.145 mg oral capsule (3 sources) Guanylate Cyclase-C Agonist Start: 11-24-2023 End: 07-25-2024 take 1 capsule by mouth once daily Linaclotide (Linzess) 145 mcg capsule Discontinued 145 MCG PO Daily November 24, 2023 12:00am July 25, 2024 10:32am 24 hr loratadine 10 mg / pseudoephedrine sulfate 240 mg extended release oral tablet (3 sources) alpha-Adrenergic Agonist Start: 12-07-2021 End: 10-25-2023 take 1 tablet by mouth once daily as needed, then take 1 tablet by mouth every twenty-four hours as needed loratadine-pseudoephe drine (CLARITIN-D 24-hour) 10-240 mg per 24 hr tablet Indications: Non-seasonal allergic rhinitis due to pollen Take 1 tablet by mouth daily as needed for allergies. 30 tablet 1 12/07/2021 10/25/2023 Discontinued (Therapy completed) meclizine hydrochloride 12.5 mg oral tablet (8 sources) Antiemetic Start: 05-01-2024 End: 05-01-2025 take 1 tablet by mouth three times daily as needed for dizziness meclizine (Antivert) 12.5 MG tablet Indications: Vertigo Take 1 tablet (12.5 mg) by mouth 3 (three) times a day as needed for dizziness 30 tablet 11 05/01/2024 07/29/2024 Discontinued (Therapy completed) methylPREDNISolone (4 sources) Corticosteroid Start: 10-30-2023 End: 01-09-2024 Methylprednisolone Discontinued MG PO October 30, 2023 12:00am January 09, 2024 11:27am Start: 10-30-2023 Methylpredniso lone Active MG PO October 30, 2023 12:00am Start: 10-25-2023 methylPREDNISo lone (MEDROL, CHRISTIANNE,) 4 mg tablet Indications: 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 follow package directions 21 tablet 10/25/2023 Active Methylprednisolone 4 mg tablets,dose pack (1 source) Start: 10-30-2023 End: 01-09-2024 Methylprednisolone 4 mg tablets,dose pack Discontinued MG PO October 30, 2023 12:00am January 09, 2024 11:27am montelukast 10 mg oral tablet (13 sources) Leukotriene Receptor Antagonist Start: 04-11-2024 End: 04-11-2025 take 1 tablet by mouth at bedtime montelukast (Singulair) 10 MG tablet Indications: History of asthma Take 1 tablet (10 mg) by mouth at bedtime 30 tablet 11 04/11/2024 12/12/2024 Discontinued phenazopyridine hydrochloride 200 mg oral tablet (3 [...] a day for 2 day(s) Nov, Active polysaccharide iron complex 391 mg oral capsule (5 sources) Start: 08-15-2023 End: 08-14-2024 take 1 capsule by mouth once daily iron polysaccharides (ProFe) 391.3 (180 Fe) MG capsule Indications: Other fatigue , Low iron Take 1 capsule (391.3 mg) by mouth Daily 30 capsule 11 08/15/2023 01/17/2024 Discontinued (Therapy completed) pravastatin sodium 40 mg oral tablet (12 sources) HMG-CoA Reductase Inhibitor Start: 05-27-2022 End: 10-25-2023 take 1 tablet by mouth at bedtime pravastatin (PRAVACHOL) 40 mg tablet Indications: Mixed hyperlipidemia TAKE 1 TABLET BY MOUTH AT BEDTIME. 90 tablet 1 03/23/2023 10/25/2023 Discontinued (Therapy completed) End: 01-17-2024 take 2 tablets by mouth once daily pravastatin (Pravachol) 20 MG tablet Take 40 mg by mouth Daily 01/17/2024 Discontinued (Therapy completed) Pravachol Active predniSONE 20 mg oral tablet (2 sources) Start: 03-18-2024 End: 07-25-2024 take 2 tablets by mouth once daily Prednisone 20 mg tablet Discontinued 40 MG PO Daily 10 March 18, 2024 1:00am July 25, 2024 10:32am Start: 03-31-2021 take 1 tablet by mir th every twelve hours predniSONE 20 MG 1 tablet Orally bid for 5 day(s) Mar, Active sulfamethoxazole 400 mg / trimethoprim 80 mg oral tablet (1 source) Dihydrofolate Reductase Inhibitor Antibacterial, Sulfonamide Antimicrobial End: 03-22-2023 take 1 tablet by mouth once in the morning sulfamethoxazole-trimethoprim (BACTRIM,SEPTRA) 400-80 mg per tablet Take 1 tablet by mouth in the morning and 1 tablet before bedtime. 0 03/22/2023 Discontinued (Therapy completed) Problems Active Problems Problem Classification Problem Date Documented Da te Episodic/Chronic Abdominal pain (4 sources) Flank pain; Translations: [Unspecified abdominal pain] Onset: 11-18-2021 Resolved: 11-18-2021 Episodic Administrative/social admission (2 sources) First encounter by subject; Translations: [Persons encountering health services in other specified circumstances] 04-12-2024 Episodic Anxiety disorders (4 sources) Anxiety; Translations: [Anxiety disorder, unspecified] 05-02-2024 Chronic Chronic obstructive pulmonary disease and bronchiectasis (2 sources) Bronchitis; Translations: [Bronchitis, not specified as acute or chronic] 04-11-2024 Episodic Conditions associated with dizziness or vertigo (4 sources) Vertigo; Translations: [Dizziness and giddiness] 05-03-2024 Episodic Disorders of lipid metabolism (20 sources) Hyperlipidemia; Translations: [Hyperlipidemia, unspecified] Onset: 01-08-2024 01-08-2024 Chronic Fluid and electrolyte disorders (3 sources) Hypokalemia; Translations: [Hypokalemia] Onset: 06-05-2023 03-23-2023 Episodic Genitourinary symptoms and ill-defined conditions (6 sources) Dysuria; Translations: [Dysuria] Onset: 06-05-2023 Episodic Immunizations and screening for infectious disease (3 sources) Encounter for screening for human papillomavirus (HPV); Translations: [Exposure to sexually transmissible disorder] Onset: 07-23-2021 05-21-2024 Episodic Inflammatory diseases of female pelvic organs (2 sources) Bacterial vaginosis; Translations: [Acute vaginitis] 05-04-2023 Episodic Menopausal disorders (1 source) Menopausal symptom; Translations: [Menopausal and female climacteric states] 12-12-2024 Chronic Mycoses (3 sources) Mycosis; Translations: [Candidiasis, unspecified] 05-11-2023 Episodic Nonmalignant breast conditions (4 sources) Disorder of breast; Translations: [Other specified disorders of breast] 04-11-2024 Episodic Nutritional deficiencies (20 sources) Vitamin D deficiency, unspecified; Translations: [Vitamin D deficiency] Onset: 03-23-2023 04-11-2024 Chronic Other ear and sense organ disorders (3 sources) Sensorineural hearing loss, bilateral; Translations: [Sensorineural hearing loss, bilateral] 01-10-2024 Chronic Other ear and sense organ disorders (3 sources) Bilateral earache; Translations: [Otalgia, bilateral] 01-10-2024 Episodic Other female genital disorders (4 sources) Unspecified condition associated with female genital organs and menstrual cycle; Translations: [UNS COND W/FE GENIT ORGN MENST CYCL] Onset: 02-22-2022 Episodic Other female genital disorders (2 sources) Vaginal discharge; Translations: [Other specified noninflammatory disorders of vagina] 05-21-2024 Episodic Other female genital disorders (2 sources) Burning sensation of vagina; Translations: [Other specified conditions associated with female genital organs and menstrual cycle] 05-21-2024 Episodic Other female genital disorders (1 source) Pruritus of vagina; Translations: [Other specified noninflammatory disorders of vagina] 12-12-2024 Episodic Other gastrointestinal disorders (19 sources) Irritable bowel syndrome; Translations: [Irritable bowel syndrome without diarrhea] Onset: 12-05-2007 01-08-2024 Chronic Other gastrointestinal disorders (4 sources) Constipation, unspecified; Translations: [Constipation, unspecified] 10-30-2023 Episodic Other gastrointestinal disorders (1 source) Altered bowel function; Translations: [Change in bowel habit] 07-25-2024 Episodic Other gastrointestinal disorders (1 source) Dysphagia; Translations: [Dysphagia, unspecified] 07-25-2024 Episodic Other gastrointestinal disorders (1 source) Dysphagia, unspecified; Translations: [Dysphagia, unspecified] 07-25-2024 Episodic Other lower respiratory disease (2 sources) H/O: asthma; Translations: [Personal history of other diseases of the respiratory system] 04-11-2024 Episodic Other lower respiratory disease (2 sources) Cough; Translations: [Cough] 07-25-2024 Episodic Other nervous system disorders (19 sources) Difficulty walking; Translations: [Difficulty in walking, not elsewhere classified] Onset: 01-08-2024 01-08-2024 Chronic Other nervous system disorders (1 source) Other acute postprocedural pain; Translations: [Other acute postprocedural pain] Onset: 01-10-2023 Episodic Other nervous system disorders (2 sources) Impairment of balance; Translations: [Other abnormalities of gait and mobility] 01-17-2024 Episodic Other nutritional; endocrine; and metabolic disorders (19 sources) Galactosemia; Translations: [Galactosemia] Onset: 12-05-2007 01-08-2024 Chronic Other nutritional; endocrine; and metabolic disorders (1 source) 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; Translations: [Lactose intolerance, unspecified] 07-25-2024 Chronic Other screening for suspected conditions (not mental disorders or infectious disease) (14 sources) Encounter for screening for malignant neoplasm of cervix; Translations: [Patient encounter status] Onset: 07-22-2021 Episodic Other upper respiratory infections (1 source) Sinusitis; Translations: [Chronic sinusitis, unspecified] 03-18-2024 Chronic Other upper respiratory infections (6 sources) Acute sinusitis, unspecified; Translations: [Acute pharyngitis, unspecified] Onset: 03-31-2021 Resolved: 03-31-2021 Episodic Otitis media and related conditions (4 sources) Dysfunction of bilateral eustachian tubes; Translations: [Unspecified Eustachian tube disorder, bilateral] 01-10-2024 Episodic Residual codes; unclassified (1 source) Postmenopausal state; Translations: [Asymptomatic menopausal state] 12-12-2024 Episodic Syncope (1 source) Syncope and collapse; Translations: [Syncope and collapse] Onset: 10-31-2023 Episodic Unclassified (1 source) EMS Onset: 10-31-2023 Unclassified (4 sources) Patient on antidepressant monitoring plan Onset: 07-29-2024 07-29-2024 Unclassified (4 sources) Baseline PHQ-9 Onset: 07-29-2024 07-29-2024 Past or Other Problems Problem Classification Problem Date Documented Da te Episodic/Chronic Cardiac dysrhythmias (20 sources) Tachycardia; Translations: [Tachycardia, unspecified] Onset: 02-14-2019 01-08-2024 Episodic Deficiency and other anemia (15 sources) Anemia; Translations: [Anemia, unspecified] Onset: 04-11-2024 04-11-2024 Episodic Deficiency and other anemia (1 source) Iron deficiency anemia; Translations: [Other iron deficiency anemias] 10-25-2023 Episodic Malaise and fatigue (17 sources) Other fatigue; Translations: [Fatigue] Onset: 03-23-2023 04-11-2024 Episodic Mood disorders (3 sources) Mood disorders Onset: 03-22-2023 Resolved: 10-25-2023 03-22-2023 Nutritional deficiencies (15 sources) Cobalamin deficiency; Translations: [Deficiency of other specified B group vitamins] Onset: 04-11-2024 04-11-2024 Episodic Other connective tissue disease (20 sources) Plantar fasciitis of left foot; Translations: [Plantar fascial fibromatosis] Onset: 02-14-2019 01-08-2024 Episodic Other female genital disorders (19 sources) Disorder of female genital organs; Translations: [Unspecified condition associated with female genital organs and menstrual cycle] Onset: 01-08-2024 01-08-2024 Episodic Other gastrointestinal disorders (20 sources) Constipation; Translations: [Constipation, unspecified] Onset: 01-08-2024 10-30-2023 Episodic Residual codes; unclassified (19 sources) Patient encounter status; Translations: [Encounter for cosmetic surgery] Onset: 01-18-2023 01-08-2024 Episodic Residual codes; unclassified (15 sources) Flushing; Translations: [Flushing] Onset: 04-11-2024 04-11-2024 Episodic Sprains and strains (1 source) Strain of muscle at thorax level; Translations: [Strain of muscle and tendon of unspecified wall of thorax, initial encounter] 06-05-2023 Episodic Unclassified (3 sources) Onset: 03-28-2023 03-28-2023 Urinary tract infections (20 sources) Acute cystitis with hematuria; Translations: [Urinary tract infection, site not specified] Onset: 07-03-2019 Resolved: 11-18-2021 Episodic Results Test Name Value Interpretation Reference Range Facility RECURRENT VAGINITIS (HTRX)on 05-22-2024 ATOPOBIUM VAGINAE 0 [facility] ATOPOBIUM VAGINAE Not detected [facility] BVAB 2,3 (BACTERIAL VAGINOSIS ASSOCIATED BACTERIA 2, 3); MOBILUNCUS SPP 0 [facility] BVAB 2,3 (BACTERIAL VAGINOSIS ASSOCIATED BACTERIA 2, 3); MOBILUNCUS SPP Not detected [facility] RORY ALBICANS, PARAPSILOSIS, TROPICALIS 0 [facility] RORY ALBICANS, PARAPSILOSIS, TROPICALIS Not detected [facility] RORY GLABRATA 0 [facility] R[facility] GLABRATA Not detected [facility] RORY KRUSEI [facility] RORY KRUSEI Not detected [facility] CHLAMYDIA TRACHOMATIS 0 [facility] CHLAMYDIA TRACHOMATIS Not detected [facility] GARDNERELLA VAGINALIS 0 [facility] GARDNERELLA VAGINALIS Not detected [facility] MEGASPHAERA (TYPES 1, 2) 0 [facility] MEGASPHAERA (TYPES 1, 2) Not detected [facility] MYCOPLASMA GENITALIUM 0 [facility] MYCOPLASMA GENITALIUM Not detected [facility] NEISSERIA GONORRHOEAE 0 [facility] NEISSERIA GONORRHOEAE Not detected [facility] TRICHOMONAS VAGINALIS 0 [facility] TRICHOMONAS VAGINALIS Not detected [facility] BI US BREAST COMPLETE BILATE RALon 05-20-2024 BI US BREAST COMPLETE BILATERAL This is a summary report. The complete report is available in the patient's medical record. If you cannot access the medical record, please contact the sending organization for a detailed fax or copy. Examination: BI US BREAST COMPLETE BILATERAL Reason for Study: breast cancer screening Comparison: None Technique: Complete bilateral breast ultrasound study was performed to include all 4 quadrants and the subareolar regions. Findings: No obvious solid or cystic mass. No obvious solid vascular mass to suggest neoplasm. No obvious abnormal calcifications or vascularity. No obvious focal fluid collection. IMPRESSION: Impression: Unremarkable complete bilateral breast ultrasound study as described. BI-RADS 2 ELECTRONICALLY SIGNED BY: Juan Vu M.D. Normal Not Available Auditory function testson Right Ear: Mild sensorineural hearing loss at 4K Hz and 8K Hz Left Ear: Mild sensorineural hearing loss above 4K Hz [facility] No Panel InformationOrdered By: Falguni Hurtado on 01-09-2024 Quick Strep (POC) [facility] Throat Cultureon 01-09-2024 Throat culture Moderate Normal Respiratory Fidelia 2 Days PERFORMED BY: [facility] [address] [place] [address] PATHOLOGIST SENIOR CLINICAL DATA ANALYST GREG MOE M.D. Normal [facility] Comment on above: Performed By: #### C MT #### [facility] [address] Cytology Cervical or vaginal smear or scraping studyon 08-15-2023 [employer] [facility] BASIC METABOLIC PANLon 06-04 Anion gap [Moles/Vol] 7 mmol/L Normal 5-15 [facility] Comment on above: Performed By: #### B MP #### [facility] ([id number]) [address], [address] [place] [address] Calcium [Mass/Vol] 10.5 mg/dL Normal 8.5-10.5 [facility] Comment on above: Performed By: #### B MP #### [facility] ([id number]) [address] [place] [address] Chloride [Moles/Vol] 100 mmol/L Normal 98-109 [facility] Comment on above: Performed By: #### B MP #### [facility] ([id number]) [address], [address] [place] [address] CO2 [Moles/Vol] 32 mmol/L Normal 22-32 [facility] Comment on above: Performed By: #### B MP #### [facility] ([id number]) [address], [address] [place] [address] Creatinine [Mass/Vol] 0.71 mg/dL Normal 0.40-1.00 [facility] Comment on above: Result Comment: METH OD TRACEABLE TO IDMS STANDARD Performed By: #### B MP #### [facility] ([id number]) [address] [place] [address] eGFR (CKD-EPI) NON-RACE DEPENDENT >90 Normal >59 [facility] Comment on above: Result Comment: Reported eGFR is based on the CKD-EPI 2020 equation that does not use a race coefficient. Performed By: #### B MP #### [facility] ([id number]) [address] [place] [address] Glucose [Mass/Vol] 95 mg/dL Normal 65-99 [facility] Comment on above: Performed By: #### B MP #### [facility] ([id number]) [address] [place] [address] Potassium [Moles/Vol] 3.8 mmol/L Normal 3.5-5.0 [facility] Comment on above: Performed By: #### B MP #### [facility] ([id number]) [address], [address] [place] [address] Sodium [Moles/Vol] 139 mmol/L Normal 134-146 [facility] Comment on above: Performed By: #### B MP #### [facility] ([id number]) [address], [address] [place] [address] Urea nitrogen [Mass/Vol] 18 mg/dL Normal 5-23 [facility] Comment on above: Performed By: #### B #### [facility] ([id number]) [address] [place] [address] Basic Metabolic Panelon 03-0 Anion gap [Moles/Vol] 7 mmol/L 5 - 15 mmol/L [facility] Calcium [Mass/Vol] 10.5 mg/dL 8.5 - 10. 5 mg/dL [facility] Chloride [Moles/Vol] 100 mmol/L 98 - 10 9 mmol/L [facility] CO2 [Moles/Vol] 32 mmol/L 22 - 32 mmol/L [facility] Creatinine [Mass/Vol] 0.71 mg/dL 0.40 - 1.00 mg/dL [facility] Comment on above: METHOD TRACEABLE TO [facility] STANDARD eGFR (CKD-EPI)non-race dependent - PINF [facility] Comment on above: Reported eGFR is based on the CKD-EPI 2020 equation that does not use a race coefficient. Glucose [Mass/Vol] 95 mg/dL 65 - 99 mg/dL [facility] Potassium [Moles/Vol] 3.8 mmol/L 3.5 - 5.0 mmol/L [facility] Sodium [Moles/Vol] 139 mmol/L 134 - 146 mmol/L [facility] Urea nitrogen [Mass/Vol] 18 mg/dL 5 - 23 mg/dL [facility] POCT urinalysis dipstick onl yon 06-05-2023 Appearance (U) CLEAR [facility] External Poct Urine Bilirubin Negative [facility] External Poct Urine Blood Negative [facility] External Poct Urine Color YELLOW [facility] External Poct Urine Glucose Negative [facility] External Poct Urine Ketones Negative [facility] External Poct Urine Leukocyte Esterase Negative [facility] External Poct Urine Nitrite Negative [facility] External Poct Urine Ph 5.5 Pr [facility] External Poct Urine Protein Negative [facility] External Poct Urine Specific [place] 1.030 [facility] External Poct Urine Urobilinogen 0.2 [facility] URINE CULTUREon 06-05-2023 Bacteria identified Cx Nom (U) CULTURE RESULTS <10,000 ORGANISMS/ML NORMAL URO GENITAL FIDELIA Normal [facility] Comment on above: Performed By: #### C BCA, CMP, 14673-6, FEPR, 3016-3, 2276-4, 10851-2, 2132-9 #### [facility] ([id number]) [address], [address] [place] [address] Urinalysis macro (dipstick) panel (U)on 05-11-2023 Bilirubin, UA Negative Negative - 4(70) +++ mg/dL [facility] Blood, UA Positive Negative - 50 Marlo/mcL [facility] Clarity, UA Clear [facility] Healthil re Color, UA Yellow [facility] Glucose, UA Negative Negative - 1999(110) ++++ mg/dL [facility] Interpretation and review of laboratory results Abnormal [facility] Ketones, UA Negative Negative - 160(16) ++++ mg/dL [facility] Leukocytes, UA Negative Negative - 500+++ Mitchel/mcL [facility] Nitrite, UA Negative Negative - Positive [facility] pH, UA 6.5 5 - 9 [facility] [employer] [facility] Protein, UA Negative Negative - 1999(20) ++++ mg/dL [facility] Spec Grav, UA 1.030 1 - 1.03 [facility] Urobilinogen, UA 1.0 0.2 - 12 mg/dL [facility] Hemoglobin A1con 03-23-2023 Average glucose Estimated from glycated hemoglobin (Bld) [Mass/Vol] 117 mg/dL [facility] HbA1c (Bld) [Mass fraction] 5.7 % High 4.4 - 5.6 % [facility] Comment on above: NOTE ADA Guidelines Result HgbA1c Normal : less than 5.7 % Prediabetes : 5.7 % to 6.4 % Diabetes : > 6.4 % Use with caution in patients with abnormal hemoglobin variants as the half-life of red blood cells and in vivo glycation rates are affected. Interpretation and review of laboratory results Abnormal [facility] CBC AND AUTO DIFFon 03-22-20 ABSOLUTE BASOPHIL 0.0 X10E9/L Normal 0.0-0.2 [facility] Comment on above: Performed By: #### C BCA, CMP, 69540-6, FEPR, 3016-3, 2276-4, 10409-3, 2131-12 #### [facility] ([id number]) [address], [address] [place] [address] ABSOLUTE NEUTROPHIL 2.3 X10E9/L Normal 1.5-6.6 [facility] Comment on above: Performed By: #### C BCA, CMP, 50943-2, FEPR, 3016-3, 2276-4, 41172-4, 2131-12 #### [facility] ([id number]) [address], [address] [place] [address] Basophils/100 WBC (Bld) 0.4 % Normal [facility] Comment on above: Performed By: #### C BCA, CMP, 92528-6, FEPR, 3016-3, 2276-4, 10961-5, 2131-12 #### [facility] ([id number]) [address], [address] [place] [address] Eosinophils (Bld) [#/Vol] 0.1 10*3/uL Normal 0.0-0.4 [facility] Comment on above: Performed By: #### C BCA, CMP, 65951-7, FEPR, 3016-3, 2276-4, 97334-0, 2131-12 #### [facility] ([id number]) [address], [address] [place] [address] Eosinophils/100 WBC (Bld) 1.5 % Normal [facility] Comment on above: Performed By: #### C BCA, CMP, 92226-1, FEPR, 3016-3, 2276-4, 82790-1, 2131-12 #### [facility] ([id number]) [address], [address] [place] [address] Erythrocyte distribution width (RBC) [Ratio] 13.6 % Normal 11.5-15.0 [facility] Comment on above: Performed By: #### C BCA, CMP, 86451-0, FEPR, 3016-3, 2276-4, 39368-5, 2131-12 #### [facility] ([id number]) [address], [address] [place] [address] Hematocrit (Bld) [Volume fraction] 42.5 % Normal 35-47 [facility] Comment on above: Performed By: #### C BCA, CMP, 62268-4, FEPR, 3016-3, 2276-4, 05790-0, 2131-12 #### [facility] ([id number]) [address], [address] [place] [address] Hemoglobin (Bld) [Mass/Vol] 14.3 g/dL Normal 11.7-15.5 [facility] Comment on above: Performed By: #### C BCA, CMP, 31278-3, FEPR, 3016-3, 2276-4, 10491-2, 2131-12 #### [facility] ([id number]) [address], [address] [place] [address] Lymphocytes (Bld) [#/Vol] 3.0 10*3/uL Normal 1.0-3.5 [facility] Comment on above: Performed By: #### C BCA, CMP, 40307-0, FEPR, 3016-3, 2276-4, 81373-9, 2131-12 #### [facility] ([id number]) [address], [address] [place] [address] Lymphocytes/100 WBC (Bld) 52.4 % Normal [facility] Comment on above: Performed By: #### C BCA, CMP, 87040-4, FEPR, 3016-3, 2276-4, 07446-8, 2131-12 #### [facility] ([id number]) [address], [address] [place] [address] MCH (RBC) [Entitic mass] 29.5 pg Normal 27-34 [facility] Comment on above: Performed By: #### C BCA, CMP, 71714-4, FEPR, 3016-3, 2276-4, 19623-1, 2131-12 #### [facility] ([id number]) [address], [address] [place] [address] MCHC (RBC) [Mass/Vol] 33.6 g/dL Normal 32-36 [facility] Comment on above: Performed By: #### C BCA, CMP, 86510-7, FEPR, 3016-3, 2276-4, 13172-2, 2131-12 #### [facility] ([id number]) [address], [address] [place] [address] MCV (RBC) [Entitic vol] 88 fL Normal 80-100 [facility] Comment on above: Performed By: #### C BCA, CMP, 82929-4, FEPR, 3016-3, 2276-4, 98326-8, 2131-12 #### [facility] ([id number]) [address], [address] [place] [address] Monocytes (Bld) [#/Vol] 0.3 10*3/uL Normal 0-0.9 [facility] Comment on above: Performed By: #### C BCA, CMP, 74304-9, FEPR, 3016-3, 2276-4, 02056-4, 2131-12 #### [facility] ([id number]) [address], [address] [place] [address] Monocytes/100 WBC (Bld) 4.8 % Normal [facility] Comment on above: Performed By: #### C BCA, CMP, 08309-7, FEPR, 3016-3, 2276-4, 81094-9, 2131-12 #### [facility] ([id number]) [address], [address] [place] [address] Neutrophils/100 WBC (Bld) 40.9 % Normal [facility] Comment on above: Performed By: #### C BCA, CMP, 53185-3, FEPR, 3016-3, 2276-4, 48011-5, 2131-12 #### [facility] ([id number]) [address] [facility] [address] [place] [address] Platelet mean volume (Bld) [Entitic vol] 7.6 fL Normal 7-12 [facility] Comment on above: Performed By: #### C BCA, CMP, 26678-0, FEPR, 3016-3, 2276-4, 78287-0, 2131-12 #### [facility] ([id number]) [address], [address] [place] [address] Platelets (Bld) [#/Vol] 307 10*3/uL Normal 150-450 [facility] Comment on above: Performed By: #### C BCA, CMP, 98740-5, FEPR, 3016-3, 2276-4, 42124-1, 2131-12 #### [facility] ([id number]) [address], [address] [place] [address] RBC COUNT 4.84 X10E12/L Normal 3.80-5.20 [facility] Comment on above: Performed By: #### C BCA, CMP, 98503-7, FEPR, 3016-3, 2276-4, 23540-1, 2131-12 #### [facility] ([id number]) [address], [address] [place] [address] WBC (Bld) [#/Vol] 5.7 10*3/uL Normal 4.0-11.0 [facility] Comment on above: Performed By: #### C BCA, CMP, 84329-5, FEPR, 3016-3, 2276-4, 92819-7, 2132-9 #### [facility] ([id number]) [address], [address] [place] [address] CBC auto differentialon 03-04 Basophils (Bld) [#/Vol] 0.0 10*3/uL [facility] Basophils/100 WBC (Bld) 0.4 % [facility] Eosinophils (Bld) [#/Vol] 0.1 10*3/uL [facility] Eosinophils/100 WBC (Bld) 1.5 % [facility] Erythrocyte distribution width (RBC) [Ratio] 13.6 % 11.5 - 15.0 % [facility] Hematocrit (Bld) [Volume fraction] 42.5 % 35 - 47 % [facility] Hemoglobin (Bld) [Mass/Vol] 14.3 g/dL 11.7 - 15.5 g/dL [facility] Lymphocytes (Bld) [#/Vol] 3.0 10*3/uL [facility] Lymphocytes/100 WBC (Bld) 52.4 % [facility] MCH (RBC) [Entitic mass] 29.5 pg 27 - 34 pg [facility] MCHC (RBC) [Mass/Vol] 33.6 g/dL 32 - 36 g/dL [facility] MCV (RBC) [Entitic vol] 88 fL 80 - 100 fL [facility] Monocytes (Bld) [#/Vol] 0.3 10*3/uL [facility] Monocytes/100 WBC (Bld) 4.8 % [facility] Neutrophils (Bld) [#/Vol] 2.3 10*3/uL [facility] Neutrophils/100 WBC (Bld) 40.9 % [facility] Platelet mean volume (Bld) [Entitic vol] 7.6 fL 7 - 12 fL [facility] Platelets (Bld) [#/Vol] 307 10*3/uL [facility] RBC (Bld) [#/Vol] 4.84 10*6/uL [facility] WBC corrected for nucl RBC Auto (Bld) [#/Vol] 5.7 [facility] COMPREHENSIVE METABOLIC PANE [place] 03-22-2023 Albumin [Mass/Vol] 4.6 g/dL Normal 3.2-5.3 [facility] Comment on above: Performed By: #### C BCA, CMP, 01425-5, FEPR, 3016-3, 2276-4, 63082-1, 2131-9 #### [facility] ([id number]) [address], [address] [place] [address] ALP [Catalytic activity/Vol] 89 U/L Normal 39-130 [facility] Comment on above: Performed By: #### C BCA, CMP, 80155-1, FEPR, 3016-3, 2276-4, 91532-0, 2131- #### [facility] ([id number]) [address], [address] [place] [address] ALT [Catalytic activity/Vol] 21 U/L Normal 0-31 [facility] Comment on above: Performed By: #### C BCA, CMP, 50616-2, FEPR, 3016-3, 2276-4, 63069-3, 2131-9 #### [facility] ([id number]) [address], [address] [place] [address] Anion gap [Moles/Vol] 9 mmol/L Normal 5-15 [facility] Comment on above: Performed By: #### C BCA, CMP, 34504-8, FEPR, 3016-3, 2276-4, 73014-1, 2131-9 #### [facility] ([id number]) [address], [address] [place] [address] AST [Catalytic activity/Vol] 24 U/L Normal 0-41 [facility] Comment on above: Performed By: #### C BCA, CMP, 85387-6, FEPR, 3016-3, 2276-4, 32431-2, 2131-12 #### [facility] ([id number]) [address], [address] [place] [address] Bilirubin [Mass/Vol] 0.5 mg/dL Normal 0.3-1.2 [facility] Comment on above: Performed By: #### C BCA, CMP, 53621-8, FEPR, 3016-3, 2276-4, 67417-7, 2131-12 #### [facility] ([id number]) [address], [address] [place] [address] Calcium [Mass/Vol] 10.4 mg/dL Normal 8.5-10.5 [facility] Comment on above: Performed By: #### C BCA, CMP, 58510-0, FEPR, 3016-3, 2276-4, 28805-5, 2131-12 #### [facility] ([id number]) [address], [address] [place] [address] Chloride [Moles/Vol] 104 mmol/L Normal 98-109 [facility] Comment on above: Performed By: #### C BCA, CMP, 38262-6, FEPR, 3016-3, 2276-4, 56138-0, 2131-12 #### [facility] ([id number]) [address], [address] [place] [address] CO2 [Moles/Vol] 28 mmol/L Normal 22-32 [facility] Comment on above: Performed By: #### C BCA, CMP, 19233-2, FEPR, 3016-3, 2276-4, 63913-5, 2131-12 #### [facility] ([id number]) [address], [address] [place] [address] Creatinine [Mass/Vol] 0.81 mg/dL Normal 0.40-1.00 [facility] Comment on above: Result Comment: METH OD TRACEABLE TO IDMS STANDARD Performed By: #### C BCA, CMP, 77873-7, FEPR, 3016-3, 2276-4, 20764-7, 2131-12 #### [facility] ([id number]) [address] [place] [address] GFR/1.73 sq M.predicted among non-blacks MDRD (S/P/Bld) [Vol rate/Area] 85 mL/min/{1.73_m2} Normal >59 [facility] Comment on above: Result Comment: Reported eGFR is based on the CKD-EPI 2020 equation that does not use a race coefficient. Performed By: #### C BCA, CMP, 81422-5, FEPR, 3016-3, 2276-4, 35633-0, 2131-12 #### [facility] ([id number]) [address], [address] [place] [address] Glucose [Mass/Vol] 103 mg/dL High 65-99 [facility] Comment on above: Performed By: #### C BCA, CMP, 96460-2, FEPR, 3016-3, 2276-4, 38735-4, 2131-12 #### [facility] ([id number]) [address], [address] [place] [address] Potassium [Moles/Vol] 3.2 mmol/L Low 3.5-5.0 [facility] Comment on above: Performed By: #### C BCA, CMP, 47298-2, FEPR, 3016-3, 2276-4, 59559-2, 2131-12 #### [facility] ([id number]) [address], [address] [place] [address] Protein [Mass/Vol] 7.6 g/dL Normal 6.0-8.0 [facility] Comment on above: Performed By: #### C BCA, CMP, 66059-4, FEPR, 3016-3, 2276-4, 91435-9, 9 #### [facility] ([id number]) [address], [address] [place] [address] Sodium [Moles/Vol] 141 mmol/L Normal 134-146 [facility] Comment on above: Performed By: #### C BCA, CMP, 91118-3, FEPR, 3016-3, 2276-4, 26394-4, 2131-9 #### [facility] ([id number]) [address], [address] [place] [address] Urea nitrogen [Mass/Vol] 19 mg/dL Normal 5-23 [facility] Comment on above: Performed By: #### C BCA, CMP, 19826-4, FEPR, 3016-3, 2276-4, 84300-4, 2131-12 #### [facility] ([id number]) [address], [address] [place] [address] Cobalamin (Vitamin B12) [Mas s/Vol]on 03-22-2023 [facility] Comprehensive metabolic pane [place] 03-22-2023 Albumin [Mass/Vol] 4.6 g/dL 3.2 - 5.3 g/dL [facility] ALP [Catalytic activity/Vol] 89 U/L 39 - 130 U/L [facility] ALT No additional P-5'-P [Catalytic activity/Vol] 21 U/L 0 - 31 U/L [facility] Anion gap [Moles/Vol] 9 mmol/L 5 - 15 mmol/L [facility] AST [Catalytic activity/Vol] 24 U/L 0 - 41 U/L [facility] Bilirubin [Mass/Vol] 0.5 mg/dL 0.3 - 1 .2 mg/dL [facility] Calcium [Mass/Vol] 10.4 mg/dL 8.5 - 10. 5 mg/dL [facility] Chloride [Moles/Vol] 104 mmol/L 98 - 10 9 mmol/L [facility] CO2 [Moles/Vol] 28 mmol/L 22 - 32 mmol/L [facility] Creatinine [Mass/Vol] 0.81 mg/dL 0.40 - 1.00 mg/dL [facility] Comment on above: METHOD TRACEABLE TO IDWI STANDARD eGFR (CKD-EPI)non-race dependent 85 - PINF [facility] Comment on above: Reported eGFR is based on the CKD-EPI 2020 equation that does not use a race coefficient. Glucose [Mass/Vol] 103 mg/dL High 65 - 99 mg/dL [facility] Potassium [Moles/Vol] 3.2 mmol/L Low 3.5 - 5.0 mmol/L [facility] Protein [Mass/Vol] 7.6 g/dL 6.0 - 8.0 g/dL [facility] Sodium [Moles/Vol] 141 mmol/L 134 - 146 mmol/L [facility] Urea nitrogen [Mass/Vol] 19 mg/dL 5 - 23 mg/dL [facility] FERRITINon 03-22-2023 Ferritin [Mass/Vol] 136 ng/mL Normal 11-307 [facility] Comment on above: Performed By: #### C BCA, CMP, 20920-0, FEPR, 3016-3, 2276-4, 64800-2, 2131-12 #### [facility] ([id number]) [address] [place] [address] Ferritinon 03-22-2023 Ferritin [Mass/Vol] 136 ng/mL 11 - 307 ng/mL [facility] Ferritin [Mass/Vol]on 2022 [facility] HGB A1C (GLYCO-HGB)on 2022 Glucose [Mass/Vol] 117 mg/dL Normal [facility] Comment on above: Performed By: #### C BCA, CMP, 68841-7, FEPR, 3016-3, 2276-4, 28672-5, 2131-12 #### [facility] ([id number]) [address] [place] [address] HbA1c (Bld) [Mass fraction] 5.7 % High 4.4-5.6 [facility] Comment on above: Result Comment: NOTE ADA Guidelines Result HgbA1c Normal : less than 5.7 % Prediabetes : 5.7 % to 6.4 % Diabetes : > 6.4 % Use with caution in patients with abnormal hemoglobin variants as the half-life of red blood cells and in vivo glycation rates are affected. Performed By: #### C BCA, CMP, 34813-6, FEPR, 3016-3, 2276-4, 66564-7, 2131-12 #### [facility] ([id number]) [address] [address] [place] [address] IRON PROFILEon 03-22-2023 Iron [Mass/Vol] 50 ug/dL Normal 50-170 [facility] Comment on above: Performed By: #### C BCA, CMP, 55374-4, FEPR, 3016-3, 2276-4, 11225-3, 2131-12 #### [facility] ([id number]) [address], [facility] [address] [place] [address] IRON BINDING 448 ug/dL High 250-425 [facility] Comment on above: Performed By: #### C BCA, CMP, 81835-8, FEPR, 3016-3, 2276-4, 75634-8, 9 #### [facility] ([id number]) [address], [facility] [address] [place] [address] IRON SATURATION 11 % SATURATION Low 15-50 [facility] Comment on above: Performed By: #### C BCA, CMP, 03634-5, FEPR, 3016-3, 2276-4, 10698-0, 2131-9 #### [facility] ([id number]) [address] [address] [place] [address] Iron and TIBCon 03-22-2023 Interpretation and review of laboratory results Abnormal [facility] Iron [Mass/Vol] 50 ug/dL 50 - 170 ug/dL [facility] Iron binding capacity [Mass/Vol] 448 ug/dL High 250 - 425 ug/dL [facility] Iron saturation [Mass fraction] 11 Low [facility] Lipid 1996 panelon 3 Cholesterol [Mass/Vol] 280 mg/dL High 150 - 200 mg/dL [facility] Cholesterol in HDL [Mass/Vol] 71 mg/dL 39 - PINF mg/dL [facility] Comment on above: HDL <40 mg/dL - High Risk HDL > or = 40mg/dL- Desirable HDL >60 mg/dL - Negative Risk Cholesterol in LDL [Mass/Vol] 174 mg/dL High NINF - 130 mg/dL [facility] Comment on above: LDL <100 mg/dL - Desirable LDL >160 mg/dL - High Risk Cholesterol in VLDL [Mass/Vol] 35 mg/dL High 0 - 30 mg/dL [facility] Cholesterol.total/Chol esterol in HDL [Mass ratio] 3.9 {ratio} 1.0 - 5.0 [facility] Triglyceride [Mass/Vol] 175 mg/dL High 27 - 150 mg/dL [facility] Cholesterol [Mass/Vol] 280 mg/dL High 150-200 [facility] Comment on above: Performed By: #### C BCA, CMP, 91382-0, FEPR, 3016-3, 2276-4, 19444-7, 2132-9 #### [facility] ([id number]) [address] [place] [address] Cholesterol in HDL [Mass/Vol] 71 mg/dL Normal >39 [facility] Comment on above: Result Comment: HDL <40 mg/dL - High Risk HDL > or = 40mg/dL- Desirable HDL >60 mg/dL - Negative Risk Performed By: #### C BCA, CMP, 53013-9, FEPR, 3016-3, 2276-4, 84112-3, 2131-12 #### [facility] ([id number]) [address] [place] [address] Cholesterol in LDL [Mass/Vol] 174 mg/dL High <130 [facility] Comment on above: Result Comment: LDL <100 mg/dL - Desirable LDL >160 mg/dL - High Risk Performed By: #### C BCA, CMP, 13913-5, FEPR, 3016-3, 2276-4, 79279-0, 2131-12 #### [facility] ([id number]) [address] [place] [address] Cholesterol in VLDL [Mass/Vol] 35 mg/dL High 0-30 [facility] Comment on above: Performed By: #### C BCA, CMP, 60431-2, FEPR, 3016-3, 2276-4, 71104-9, 2131-12 #### [facility] ([id number]) [address], [address] [place] [address] CHOLESTEROL:HDL 3.9 Normal 1.0-5.0 [facility] Comment on above: Performed By: #### C BCA, CMP, 25986-5, FEPR, 3016-3, 2276-4, 04152-7, 2131-12 #### [facility] ([id number]) [address], [address] [place] [address] Triglyceride [Mass/Vol] 175 mg/dL High 27-150 [facility] Comment on above: Performed By: #### C BCA, CMP, 60009-5, FEPR, 3016-3, 2276-4, 02851-4, 2131-12 #### [facility] ([id number]) [address], [address] [place] [address] No Panel Informationon 03-22 [facility] Interpretation and review of laboratory results Abnormal [facility] TSHon 03-22-2023 TSH Qn 3.02 m[IU]/L [facility] TSH Qnon 03-22-2023 TSH 3.02 uIU/mL Normal 0.49-4.67 [facility] Comment on above: Performed By: #### C ARIADNA, CMP, 54440-4, FEPR, 3016-3, 2276-4, 71846-4, 2131-12 #### [facility] ([id number]) [address], [address] [place] [address] VITAMIN B12on 03-22-2023 Cobalamin (Vitamin B12) [Mass/Vol] 581 pg/mL Normal 180-914 [facility] Comment on above: Performed By: #### C ARIADNA, CMP, 03818-8, FEPR, 3016-3, 2276-4, 03315-6, 2131-12 #### [facility] ([id number]) [address], [address] [place] [address] Vitamin B12on 03-22-2023 Cobalamin (Vitamin B12) [Mass/Vol] 581 pg/mL 180 - 914 pg/mL [facility] Vitamin D 25 hydroxyon 03-22 Vitamin D+Metabolites [Mass/Vol] 24.0 ng/mL Low 30 - 100 ng/mL [facility] Comment on above: Vitamin D status 25 [place] Vitamin D Deficiency <20 ng/mL Insufficiency 20-29 ng/mL Sufficiency 30-100 ng/mL Toxicity >100 ng/mL NOTE: A pediatric reference range has not been established by the shot man of this kit. The [employer] recommends a Vitamin D level of = or >20ng/mL in infants and children. Vitamin D+Metabolites [Mass/ Vol]on 03-22-2023 Interpretation and review of laboratory results Abnormal [facility] VITAMIN D 25 HYD TOT 24.0 ng/mL Low 30-100 [facility] Comment on above: Result Comment: Vitamin D status 25 [place] Vitamin D Deficiency <20 ng/mL Insufficiency 20-29 ng/mL Sufficiency 30-100 ng/mL Toxicity >100 ng/mL NOTE: A pediatric reference range has not been established by the shot man of this kit. The [place] [employer] recommends a Vitamin D level of = or >20ng/mL in infants and children. Performed By: #### C BCA, CMP, 66743-9, FEPR, 3016-3, 2276-4, 37534-1, 2132-9 #### [facility] ([id number]) [address] [place] [address] [address] [place] [address] VAGINITIS/VAGINOSIS DNA PROB David 02-24-2022 Rory species Negative Normal Negative [facility] Comment on above: Performed By: #### V AGINT #### [facility] [address] [place] [address] Dr. Asuncion Owusu Gardnerella vaginalis Positive Abnormal Negative [facility] Comment on above: Performed By: #### V AGINT #### [facility] [address] [address] [address] Asuncion Owusu Trichomonas vaginalis Negative Normal Negative [facility] Comment on above: Performed By: #### V AGINT #### [facility] [address] [place] [address] Dr. Asuncion Owusu Urinalysis - AUTOMATEDon Appearance (U) [employer] Other Bilirubin Ql (U) Negative Jin[employer]Magic Other Color (U) yello [facility] Other Glucose Ql (U) Negative [employer] Other Hemoglobin Ql (U) trace-lysed [facility] Other Ketones Ql (U) Negative [employer] Other Leukocyte esterase Test strip Ql (U) Small [employer] Other Nitrite Ql (U) Negative [employer] Other pH (U) 5.5 [pH] [employer] Other Protein Ql (U) Negative [employer] Other Specific gravity (U) [Rel density] 1.030 [employer] Other Urobilinogen (U) [Mass/Vol] 0.20 mg/dL [facility] Other Urinalysis - AUTOMATED No rt Mibio Other Urine culture routineOrdered By: REYNA CRUZ on 11-20-2021 Bacteria identified Cx Nom (U) 2 Days [facility] Urinalysis - AUTOMATEDon Appearance (U) cloudy [employer] Other Bilirubin Ql (U) Negative [employer] Other Color (U) yellow [facility] Other Glucose Ql (U) Negative [employer] Other Hemoglobin Ql (U) Sociact Other Ketones Ql (U) Negative [employer] Other Leukocyte esterase Test strip Ql (U) Zafu Other Nitrite Ql (U) Negative [employer] Other pH (U) 6.5 [pH] [facility] Other Protein Ql (U) Negative [employer] Other Specific gravity (U) [Rel density] 1.025 [employer] Other Urobilinogen (U) [Mass/Vol] 1.0 mg/dL [facility] Other Urinalysis - AUTOMATED No rt Mibio Other PAP ACOG PANEL 2: 30 to 65on 07-29-2021 . . Normal [facility] Comment on above: Result Comment: Perf ormed at: WB Performed By: #### [id number] #### [facility] [address] [place] [address] Dr. Asuncion Owusu Age Gdln ACOG Testing - Normal [facility] Comment on above: Performed By: #### [id number] #### [facility] [address] [place] [address] Dr. Asuncion Owusu DIAGNOSIS: Comment Normal [facility] Comment on above: Result Comment: NEGA TIVE FOR INTRAEPITHELIAL LESION OR MALIGNANCY. CELLULAR CHANGES ASSOCIATED WITH ATROPHY ARE PRESENT. Performed at: WB Performed By: #### [id number] #### [facility] [address] [address] [address] Asuncion Owusu HPV Aptima Negative Normal [facility] Comment on above: Result Comment: This nucleic acid amplification test detects fourteen high-risk HPV types (16,18,31,33,35,39,45,51,52,56,58,59,66,68) without differentiation. Performed at: =G Performed By: #### [id number] #### [facility] [address] [place] [address] Dr. Asuncion Owusu Methodology: Comment Normal [facility] Comment on above: Result Comment: This liquid based ThinPrep(R) pap test was screened with the use of an image guided system. Performed at: WB Performed By: #### [id number] #### [facility] [address] [place] [address] Dr. Asuncion Owusu Note: Comment [facility] Comment on above: Result Comment: The Pap smear is a screening test designed to aid in the detection of premalignant and malignant conditions of the uterine cervix. It is not a diagnostic procedure and should not be used as the sole means of detecting cervical cancer. Both false-positive and false-negative reports do occur. . Performed at: WB Performed By: #### [id number] #### [facility] [address] [place] [address] Dr. Asuncion Owusu Performed by: Comment Normal [facility] Comment on above: Result Comment: Dayday Mullins, Logging Contractor (ASCP) Performed at: WB Performed By: #### [id number] #### [facility] [address] [place] [address] Dr. Asuncion Owusu Specimen adequacy: Comment Normal [facility] Comment on above: Result Comment: Sati sfactory for evaluation. Endocervical component may not be distinguished in cases of atrophy. Performed at: WB Performed By: #### [id number] #### [facility] [address] [place] [address] Dr. Asuncion Owusu Vital Signs Date Time Vital Sign Value Performing Clinician Facility 12-12-2024 13:37-0400 Body mass index (BMI) [Ratio] 21.36 kg/m2 Ale MACHADO Work Phone: [facility] 12-12-2024 13:37-0400 Body weight 52.98 kg Ale MACHADO Work Phone: [facility] 12-12-2024 13:37-0400 Diastolic blood pressure 82 mm[Hg] Ale MACHADO Work Phone: [facility] 12-12-2024 13:37-0400 Systolic blood pressure 120 mm[Hg] Ale MACHADO Work Phone: [facility] 07-29-2024 16:46-0400 Body height 157.5 cm Sabrina Lause RAISE DRILLER Work Phone: [facility] 07-29-2024 16:46-0400 Body mass index (BMI) [Ratio] 20.89 kg/m2 Sabrina Lause RAISE DRILLER Work Phone: [facility] 07-29-2024 16:46-0400 Body temperature 97.9 [degF] Sabrina Lause RAISE DRILLER Work Phone: [facility] 07-29-2024 16:46-0400 Body weight 51.8 kg Sabrina Lause RAISE DRILLER Work Phone: [facility] 07-29-2024 16:46-0400 Diastolic blood pressure 68 mm[Hg] Sabrina Lause RAISE DRILLER Work Phone: [facility] 07-29-2024 16:46-0400 Heart rate 99 /min Sabrina Lause RAISE DRILLER Work Phone: [facility] 07-29-2024 16:46-0400 Respiratory rate 20 /min Sabrina Lause RAISE DRILLER Work Phone: [facility] 07-29-2024 16:46-0400 SaO2% (BldA) [Mass fraction] 96 % Sabrina Lause RAISE DRILLER Work Phone: [facility] 07-29-2024 16:46-0400 Systolic blood pressure 115 mm[Hg] Sabrina Lause RAISE DRILLER Work Phone: [facility] 07-25-2024 10:30-0400 Body height 157.48 cm [facility] 07-25-2024 10:30-0400 Body mass index (BMI) [Ratio] 20.6 kg/m2 [facility] 07-25-2024 10:30-0400 Body weight 51.25 kg [facility] 05-21-2024 15:13-0500 Body mass index (BMI) [Ratio] 21.22 kg/m2 Ale MACHADO Work Phone: [facility] 05-21-2024 15:13-0500 Body weight 52.62 kg Ale MACHADO Work Phone: [facility] 05-21-2024 15:13-0500 Diastolic blood pressure 64 mm[Hg] Ale Cheungey PA Work Phone: [facility] 05-21-2024 15:13-0500 Systolic blood pressure 102 mm[Hg] Ale Dorantes PA Work Phone: [facility] 04-11-2024 15:59-0500 Body height 157.5 cm Sabrina Lause RAISE DRILLER Work Phone: [facility] 04-11-2024 15:59-0500 Body mass index (BMI) [Ratio] 20.89 kg/m2 Sabrina Lause RAISE DRILLER Work Phone: [facility] 04-11-2024 15:59-0500 Body temperature 97.2 [degF] Sabrina Lause RAISE DRILLER Work Phone: [facility] 04-11-2024 15:59-0500 Body weight 51.8 kg Sabrina Lause RAISE DRILLER Work Phone: [facility] 04-11-2024 15:59-0500 Diastolic blood pressure 82 mm[Hg] Sabrina Lause RAISE DRILLER Work Phone: [facility] 04-11-2024 15:59-0500 Heart rate 82 /min Sabrina Lause RAISE DRILLER Work Phone: [facility] 04-11-2024 15:59-0500 SaO2% (BldA) [Mass fraction] 92 % Sabrina Lause RAISE DRILLER Work Phone: [facility] 04-11-2024 15:59-0500 Systolic blood pressure 124 mm[Hg] Sabrina Lause RAISE DRILLER Work Phone: [facility] 01-17-2024 15:09-0400 Body height 157.5 cm Alvarez Nguyen MD Work Phone: [facility] 01-17-2024 15:09-0400 Body mass index (BMI) [Ratio] 20.3 kg/m2 Alvarez Nguyen MD Work Phone: [facility] 01-17-2024 15:09-0400 Body weight 50.35 kg Alvarez Nguyen MD Work Phone: [facility] 01-17-2024 15:09-0400 Diastolic blood pressure 80 mm[Hg] Alvarez Nguyen MD Work Phone: [facility] 01-17-2024 15:09-0400 Systolic blood pressure 123 mm[Hg] Alvarez Nguyen MD Work Phone: [facility] 01-09-2024 11:21-0400 Body height 157.48 cm [facility] 01-09-2024 11:21-0400 Body mass index (BMI) [Ratio] 20.3 kg/m2 [facility] 01-09-2024 11:21-0400 Body temperature 97.2 [degF] [facility] 01-09-2024 11:21-0400 Body weight 50.46 kg [facility] 01-09-2024 11:21-0400 Diastolic blood pressure 85 mm[Hg] [facility] 01-09-2024 11:21-0400 Heart rate 76 /min [facility] 01-09-2024 11:21-0400 Respiratory rate 17 /min [facility] 01-09-2024 11:21-0400 SaO2% (BldA) [Mass fraction] 99 % [facility] 01-09-2024 11:21-0400 Systolic blood pressure 145 mm[Hg] [facility] 10-30-2023 13:43-0400 Body height 157.48 cm [facility] 10-30-2023 13:43-0400 Body mass index (BMI) [Ratio] 20.1 kg/m2 [facility] 10-30-2023 13:43-0400 Body weight 50 kg [facility] 10-25-2023 15:58-0400 Body height 157.5 cm Laurence Amato APRNDraftDaySAURVA Work Phone: [facility] [facility] 10-25-2023 15:58-0400 Body mass index (BMI) [Ratio] 20.03 kg/m2 Laurence Amato APRN-SERVICE AND REPAIR SUPERVISOR Work Phone: [facility] 10-25-2023 15:58-0400 Body temperature 98.49 [degF] Laurence Amato APRN-SERVICE AND REPAIR SUPERVISOR Work Phone: [facility] 10-25-2023 15:58-0400 Body weight 49.67 kg Laurence Amato APRN-SERVICE AND REPAIR SUPERVISOR Work Phone: [facility] 10-25-2023 15:58-0400 Diastolic blood pressure 70 mm[Hg] Laurence Amato APRN-SERVICE AND REPAIR SUPERVISOR Work Phone: [facility] 10-25-2023 15:58-0400 Heart rate 108 /min Laurence Amato APRN-SERVICE AND REPAIR SUPERVISOR Work Phone: [facility] 10-25-2023 15:58-0400 Respiratory rate 18 /min Laurence Amato APRN-SERVICE AND REPAIR SUPERVISOR Work Phone: [facility] 10-25-2023 15:58-0400 SaO2% (BldA) [Mass fraction] 99 % Laurence Amato APRN-SERVICE AND REPAIR SUPERVISOR Work Phone: [facility] 10-25-2023 15:58-0400 Systolic blood pressure 110 mm[Hg] Laurence Amato APRN-SERVICE AND REPAIR SUPERVISOR Work Phone: [facility] 06-05-2023 15:53-0500 Body height 157.5 cm Sarah Quezada STORAGE BRINE WORKER-EXPORT FREIGHT MANAGER Work Phone: [facility] 06-05-2023 15:53-0500 Body mass index (BMI) [Ratio] 20.74 kg/m2 Sarah Quezdaa STORAGE BRINE WORKER-EXPORT FREIGHT MANAGER Work Phone: [facility] 06-05-2023 15:53-0500 Body temperature 98.01 [degF] Sarah Quezada STORAGE BRINE WORKER-EXPORT FREIGHT MANAGER Work Phone: [facility] [facility] 06-05-2023 15:53-0500 Body weight 51.44 kg Sarah Quezada STORAGE BRINE WORKER-EXPORT FREIGHT MANAGER Work Phone: [facility] 06-05-2023 15:53-0500 Diastolic blood pressure 60 mm[Hg] Sarah Quezada STORAGE BRINE WORKER-EXPORT FREIGHT MANAGER Work Phone: [facility] 06-05-2023 15:53-0500 Heart rate 96 /min Sarah Quezada STORAGE BRINE WORKER-EXPORT FREIGHT MANAGER Work Phone: [facility] 06-05-2023 15:53-0500 SaO2% (BldA) [Mass fraction] 97 % Sarah Quezada STORAGE BRINE WORKER-EXPORT FREIGHT MANAGER Work Phone: [facility] 06-05-2023 15:53-0500 Systolic blood pressure 98 mm[Hg] Sarah Quezada STORAGE BRINE WORKER-EXPORT FREIGHT MANAGER Work Phone: [facility] 05-11-2023 11:57-0500 Body mass index (BMI) [Ratio] 20.81 kg/m2 Macario Lupe DO Work Phone: [facility] 05-11-2023 11:57-0500 Body weight 51.62 kg Macario Lupe DO Work Phone: [facility] 05-11-2023 11:57-0500 Diastolic blood pressure 76 mm[Hg] Macario Lupe DO Work Phone: [facility] 05-11-2023 11:57-0500 Systolic blood pressure 118 mm[Hg] Macario Lupe DO Work Phone: [facility] 03-22-2023 17:21-0500 Body height 157.5 cm Laurence Amato STORAGE BRINE WORKER-SERVICE AND REPAIR SUPERVISOR Work Phone: [facility] 03-22-2023 17:21-0500 Body mass index (BMI) [Ratio] 20.12 kg/m2 Laurencevivian Amato STORAGE BRINE WORKER-SERVICE AND REPAIR SUPERVISOR Work Phone: [facility] 03-22-2023 17:21-0500 Body temperature 97 [degF] Laurence Amato STORAGE BRINE WORKER-SERVICE AND REPAIR SUPERVISOR Work Phone: [employer] 03-22-2023 17:21-0500 Body weight 49.9 kg Laurence Amato APRN-SERVICE AND REPAIR SUPERVISOR Work Phone: [employer] 03-22-2023 17:21-0500 Diastolic blood pressure 62 mm[Hg] Laurence Amato APRN-SERVICE AND REPAIR SUPERVISOR Work Phone: [employer] 03-22-2023 17:21-0500 Heart rate 82 /min Laurence Amato APRN-SERVICE AND REPAIR SUPERVISOR Work Phone: [employer] 03-22-2023 17:21-0500 SaO2% (BldA) [Mass fraction] 99 % Laurence Amato APRN-SERVICE AND REPAIR SUPERVISOR Work Phone: [employer] 03-22-2023 17:21-0500 Systolic blood pressure 128 mm[Hg] Laurence Amato APRN-SERVICE AND REPAIR SUPERVISOR Work Phone: [employer] 01-12-2022 16:15-0400 Body height 157.48 cm Damaris Buckmond Other [facility] Other 01-12-2022 16:15-0400 Body mass index (BMI) [Ratio] 21.95 kg/m2 Damaris Buckmond Other [facility] Other 01-12-2022 16:15-0400 Body temperature 98.1 [degF] Damaris Buckmond Other [facility] Other 01-12-2022 16:15-0400 Body weight 54.43 kg Damaris Buckmond Other [facility] Other 01-12-2022 16:15-0400 Diastolic blood pressure 78 mm[Hg] Damaris Tarsha Other [facility] Other 01-12-2022 16:15-0400 Respiratory rate 18 /min Damaris Willingham Other [facility] Other 01-12-2022 16:15-0400 SaO2% (BldA) [Mass fraction] 99 % Damaris Willingham Other [facility] Other 01-12-2022 16:15-0400 Systolic blood pressure 127 mm[Hg] Damaris Willingham Other [facility] Other 11-18-2021 19:00-0400 Body height 157.48 cm Reyna Morganault Other [facility] Other 11-18-2021 19:00-0400 Body mass index (BMI) [Ratio] 21.95 kg/m2 Reyna Darrel Other [facility] Other 11-18-2021 19:00-0400 Body temperature 98.2 [degF] Reyna Darrel Other [facility] Other 11-18-2021 19:00-0400 Body weight 54.43 kg Reyna Morganault Other [facility] Other 11-18-2021 19:00-0400 Diastolic blood pressure 91 mm[Hg] Reyna Darrel Other [facility] Other 11-18-2021 19:00-0400 Respiratory rate 18 /min Reyna Darrel Other [facility] Other 11-18-2021 19:00-0400 SaO2% (BldA) [Mass fraction] 99 % Reyna Darrel Other [facility] Other 11-18-2021 19:00-0400 Systolic blood pressure 155 mm[Hg] Reyna Cruz Other [facility] Other 03-31-2021 14:30-0500 Body height 157.48 cm Damaris Willingham Other [facility] Other 03-31-2021 14:30-0500 Body mass index (BMI) [Ratio] 21.58 kg/m2 Damaris Buckmond Other [facility] Other 03-31-2021 14:30-0500 Body temperature 98.2 [degF] Damaris Buckmond Other [facility] Other 03-31-2021 14:30-0500 Body weight 53.52 kg Damaris Buckmond Other [facility] Other 03-31-2021 14:30-0500 Diastolic blood pressure 96 mm[Hg] Damaris Tarsha Other [facility] Other 03-31-2021 14:30-0500 Respiratory rate 18 /min Damaris Tarsha Other [facility] Other 03-31-2021 14:30-0500 SaO2% (BldA) [Mass fraction] 96 % Damaris Tarsha Other [facility] Other 03-31-2021 14:30-0500 Systolic blood pressure 144 mm[Hg] Damaris Tarsha Other [facility] Other Encounters Encounter Date Encounter Type Care Provider Facility Start: 12-12-2024 End: 12-12-2024 Sophy MACHADO Work Phone: [facility] Start: 12-12-2024 End: 12-12-2024 Bamboo flowsheet Ale MACHADO Work Phone: [facility] Start: 12-12-2024 End: 12-12-2024 Patient encounter procedure Ale MACHADO Work Phone: [facility] Work Phone: Start: 12-12-2024 End: 12-12-2024 Periodic preventive med est patient 40-64yrs Ale MACHADO Work Phone: [facility] Comment on above: Well woman exam with routine gynecological exam; Breast cancer screening by mammogram; Postmenopausal state; Vaginal itching; Symptoms, such as flushing, sleeplessness, headache, lack of concentration, associated with the menopause; Yeast infection Start: 07-29-2024 End: 07-29-2024 ambulatory SABRINA WEAVER Not Available Start: 07-29-2024 End: 07-29-2024 Office outpatient visit 25 minutes Sabrina Weaver RAISE DRILLER Work Phone: [facility] Comment on above: Breast pain, left (P rimary Dx); Vitamin D deficiency; Anxiety Start: 07-25-2024 End: 07-25-2024 ambulatory [facility] Work Phone: Start: 07-25-2024 End: 07-25-2024 Patient encounter procedure [facility] Work Phone: Start: 05-21-2024 End: 05-21-2024 Office outpatient visit 15 minutes Ale MACHADO Work Phone: [facility] Comment on above: Vaginal discharge; Vaginal burning; Exposure to STD Start: 05-21-2024 End: 05-21-2024 ambulatory ALE DORANTES Not Available Start: 05-21-2024 End: 05-21-2024 Bamboo flowsheet Ale MACHADO Work Phone: [facility] Start: 05-21-2024 End: 05-22-2024 Bamboo flowsheet Ale MACHADO Work Phone: [facility] Start: 05-21-2024 End: 05-22-2024 External Result Encounter Ale Dorantes CARTER Work Phone: [facility] External Department Unsolicited Start: 05-20-2024 End: 05-20-2024 ambulatory SABRINA R LAUSE Not Available Start: 05-01-2024 End: 05-01-2024 ambulatory SABRINA R LAUSE Not Available Start: 05-01-2024 End: 05-01-2024 Office outpatient visit 25 minutes Sabrina R Lause RAISE DRILLER Work Phone: [facility] Comment on above: Other constipation ( Primary Dx); Vertigo; Vitamin D deficiency; Anxiety Start: 05-01-2024 End: 05-01-2024 Bamboo flowsheet Sabrina R Lause RAISE DRILLER Work Phone: [facility] Start: 05-01-2024 End: 05-01-2024 Bamboo flowsheet Sabrina R Lause RAISE DRILLER Work Phone: [facility] Start: 04-11-2024 End: 04-11-2024 Office outpatient new 45 minutes Sabrina R Lause RAISE DRILLER Work Phone: [facility] Comment on above: Encounter for breast cancer screening other than mammogram (Primary Dx); Encounter for vitamin deficiency screening; Screening for lipid disorders; Adult general medical examination; Screening for thyroid disorder; Hyperlipidemia, unspecified hyperlipidemia type (CMS/HCC); Fatigue, unspecified type; Vitamin D deficiency; Hot flashes; Anemia, unspecified type; B12 deficiency; Other specified disorders of breast; Bronchitis; History of asthma; Encounter to establish care Start: 04-11-2024 End: 04-11-2024 Patient encounter status Sabrina R Lause RAISE DRILLER Work Phone: [facility] Start: 04-11-2024 End: 04-11-2024 ambulatory SABRINA R LAUSE Not Available Start: 04-11-2024 End: 04-11-2024 Bamboo flowsheet Sabrina R Lause RAISE DRILLER Work Phone: [facility] Start: 04-11-2024 End: 04-11-2024 Bamboo flowsheet Sabrina Weaver RAISE DRILLER Work Phone: [facility] Start: 01-17-2024 End: 01-17-2024 ambulatory ALVAREZ NGUYEN Not Available Start: 01-17-2024 End: 01-17-2024 Office outpatient new 45 minutes Alvarez Nguyen MD Work Phone: [facility] Comment on above: Pain in ear, bilater al (Primary Dx); Imbalance; ETD (Eustachian tube dysfunction), bilateral; Sensorineural hearing loss (SNHL), bilateral Start: 01-17-2024 End: 01-17-2024 Bamboo flowsheet Alvarez Nguyen MD Work Phone: [facility] Start: 01-17-2024 End: 01-17-2024 Bamboo flowsheet Alvarez Nguyen MD Work Phone: [facility] Start: 01-10-2024 End: 01-10-2024 Clinical Support Gwen Del Angel CCC-A Work Phone: [facility] Comment on above: Sensorineural hearin g loss (SNHL) of both ears (Primary Dx); Eustachian tube dysfunction, bilateral; Otalgia, bilateral Start: 01-10-2024 End: 01-10-2024 Bamboo flowsheet Gwen Del Angel CCC-A Work Phone: [facility] Start: 01-10-2024 End: 01-10-2024 Bamboo flowsheet Gwen Del Angel CCC-A Work Phone: [facility] Start: 01-09-2024 End: 01-09-2024 Departed Referred MARGARITO Hurtado Work Phone: [facility] [place] Work Phone: Start: 01-09-2024 End: 01-09-2024 ambulatory Falguni Hurtado [facility] Work Phone: Start: 01-09-2024 End: 01-09-2024 Patient encounter procedure [facility] Work Phone: Start: 10-31-2023 End: 10-31-2023 Emergency department patient visit LAURENCE J [facility] Start: 10-30-2023 End: 10-30-2023 ambulatory [facility] Work Phone: Start: 10-30-2023 End: 10-30-2023 Patient encounter procedure [facility] G[facility] Work Phone: Start: 10-25-2023 End: 10-25-2023 Office outpatient visit 15 minutes Laurence Amato STORAGE BRINE WORKER-SERVICE AND REPAIR SUPERVISOR Work Phone: [facility] Comment on above: Other iron deficienc y anemia (Primary Dx); 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; Mixed hyperlipidemia Start: 08-15-2023 End: 08-15-2023 ambulatory MACARIO LUPE Not Available Start: 06-05-2023 End: 06-06-2023 [facility] Start: 06-05-2023 End: 06-05-2023 Office outpatient visit 15 minutes Sarah Quezada STORAGE BRINE WORKER-EXPORT FREIGHT MANAGER Work Phone: [facility] Comment on above: Urinary tract infect ion symptoms (Primary Dx); Hypokalemia; Viral upper respiratory tract infection; Thoracic myofascial strain, initial encounter Start: 05-11-2023 End: 05-11-2023 Office outpatient visit 15 minutes Macario Lupe DO Work Phone: [facility] Comment on above: BV (bacterial vagino sis); UTI symptoms; Yeast infection Start: 05-10-2023 Chart abstracting Macario Lupe DO Work Phone: [facility] Start: 03-23-2023 End: 03-23-2023 ambulatory [facility] Start: 03-23-2023 Encounter for genera l adult medical examination without abnormal findings SARAH QUEZADA [facility] Start: 03-22-2023 End: 03-22-2023 Patient encounter procedure Laurence Amato STORAGE BRINE WORKER-SERVICE AND REPAIR SUPERVISOR Work Phone: [facility] [employer] Start: 03-22-2023 End: 03-22-2023 Periodic preventive med est patient 40-64yrs Laurence Amato STORAGE BRINE WORKER-SERVICE AND REPAIR SUPERVISOR Work Phone: [facility] Internal Medicine - Family Medicine Comment on above: Annual physical exam (Primary Dx); Blood tests for routine general physical examination; Fatigue, unspecified type; Vitamin D deficiency; Encounter for screening mammogram for malignant neoplasm of breast; Mixed hyperlipidemia; Hypokalemia Start: 03-22-2023 End: 03-22-2023 Physical examination Laurence Amato STORAGE BRINE WORKER-SERVICE AND REPAIR SUPERVISOR Work Phone: [facility] Work Phone: Start: 01-10-2023 End: 01-10-2023 ambulatory A [facility] Start: 12-29-2022 End: 01-03-2023 ambulatory A [facility] Start: 12-29-2022 End: 01-03-2023 Encounter for other preprocedural examination A [facility] Start: 02-22-2022 End: 02-22-[address] ARNULFO WADDELL Facility: Start: 01-12-2022 End: 01-12-2022 Departed Referred PHYSICIAN NO [facility] Main [place] Start: 01-12-2022 End: 01-12-2022 ambulatory PHYSICIAN NO [facility] Work Phone: Start: 01-12-2022 Office outpatient vi sit 15 minutes Damaris Willingham [facility] [place] Start: 11-18-2021 End: 11-18-2021 Departed Referred EXPORT FREIGHT MANAGER-C Reyna Cruz Work Phone: [facility] Main [place] Start: 11-18-2021 End: 11-18-2021 ambulatory Reyna Cruz Other [facility] Other Start: 11-18-2021 Office outpatient vi sit 15 minutes Reyna Cruz [facility] [place] Start: 07-22-2021 End: 07-22-[address] ARNULFO WADDELL Facility: Start: 03-31-2021 End: 03-31-2021 ambulatory Damaris Willingham Other [facility] Other Start: 03-31-2021 Office outpatient vi sit 15 minutes Damaris Tarsha [facility] [place] Procedures Date Procedure Procedure Detail Performing Clinician Start: 05-22-2024 Mammography Sabrina Tapia RAISE DRILLER Work Phone: Start: 05-21-2024 RECURRENT VAGINITIS (HTRX) Ale MACHADO Work Phone: Start: 01-10-2024 AUDITORY FUNCTION TESTS Gwen Del Angel [facility] Work Phone: Start: 01-09-2024 Quick Strep (POC) Start: 10-25-2023 Adult depression scr eening assessment Laurence Lm STORAGE BRINE WORKER-SERVICE AND REPAIR SUPERVISOR Work Phone: Start: 08-15-2023 Microscopic observat ion [Identifier] in Cervix by Cyto stain Ale MACHADO Work Phone: Start: 08-15-2023 Cytp cerv/vag auto t hin layer prep mnl screen Macario Lupe DO Work Phone: Start: 06-05-2023 Urnls dip stick/tabl et rgnt non-auto w/o micrscp Sarah Quezada STORAGE BRINE WORKER-EXPORT FREIGHT MANAGER Work Phone: Start: 06-05-2023 Adult depression scr eening assessment Sarah Quezada STORAGE BRINE WORKER-EXPORT FREIGHT MANAGER Work Phone: Start: 05-11-2023 Urnls dip stick/tabl et rgnt non-auto w/o micrscp Macario Lupe DO Work Phone: Start: 03-22-2023 Adult depression scr eening assessment Laurence Amato STORAGE BRINE WORKER-SERVICE AND REPAIR SUPERVISOR Work Phone: Start: 12-27-2021 Colonoscopy Laurence lewis STORAGE BRINE WORKER-SERVICE AND REPAIR SUPERVISOR Work Phone: Start: 08-03-2017 Mammography Laurence lewis STORAGE BRINE WORKER-SERVICE AND REPAIR SUPERVISOR Work Phone: Urine culture EXPORT FREIGHT MANAGER-C Magnolia Cruz Work Phone: Plan of Treatment Date Care Activity Detail Author Start: 12-28-2031 Screening for malign ant neoplasm of colon [facility] Start: 08-14-2028 Screening for malign ant neoplasm of cervix [facility] Start: 12-16-2025 End: 12-16-2025 Patient encounter procedure 12/16/2025 3:00 PM EDT Procedure Visit STAN PIERSON [address] [place] [id number] Ale Dorantes PA [address] [place] [address] STAN Jones OBANDREW Start: 05-22-2025 Screening for malign ant neoplasm of breast Mammogram [facility] Start: 01-27-2025 End: 01-27-2025 Patient encounter procedure [facility] Start: 12-12-2024 End: 12-12-2025 DXA Skeletal system Views for bone density DEXA bone density Imaging Routine Postmenopausal state Expected: 12/12/2024 (Approximate), Expires: 12/12/2025 [facility] Comment on above: Expected: 12/12/2024 (Approximate), Expires: 12/12/2025 Start: 12-12-2024 End: 02-11-2026 MG Breast - bilateral Screening Bilateral screening mammogram Imaging Routine Breast cancer screening by mammogram Expected: 12/12/2024, Expires: 02/11/2026 [facility] Work Phone: Comment on above: Expected: 12/12/2024 , Expires: 02/11/2026 Start: 12-12-2024 End: 12-12-2024 Patient encounter procedure 12/12/2024 1:30 PM EDT Procedure Visit STAN PIERSON [address] [place] [phone] Ale Dorantes PA [address] [place], [facility] Arrived [facility] Comment on above: Arrived Start: 12-02-2024 Influenza [facility] Start: 10-24-2024 Adult BMI Screening Adult BMI Screen ing [facility] Start: 10-24-2024 Depression Screening Depression Scre ening [facility] Start: 10-24-2024 Tobacco Screening Tobacco Screening [facility] Start: 08-20-2024 End: 08-20-2024 Patient encounter procedure 08/20/2024 1:00 PM EDT Office Visit [facility] [address] [place] [phone] Ale Dorantes PA [address] [place], [place] [address] [facility] Start: 07-30-2024 End: 09-29-2025 MG Breast - left Diagnostic Left diagnostic mammogram Imaging Routine Breast pain, left Expected: 07/30/2024, Expires: 09/29/2025 [facility] Work Phone: Comment on above: Expected: 07/30/2024 , Expires: 09/29/2025 Start: 07-24-2024 End: 07-24-2024 Patient encounter procedure 07/24/2024 5:00 PM EDT Office Visit [facility] [address] [address] Sabrina Weaver, KYLE [address], [place] [address] [facility] Start: 06-04-2024 Adult BMI Screening Adult BMI Screen ing [facility] Start: 06-04-2024 Depression Screening Depression Scre ening [facility] Start: 06-04-2024 Tobacco Screening Tobacco Screening [facility] Start: 05-21-2024 End: 05-21-2024 Patient encounter procedure 05/21/2024 2:40 PM EST Office Visit [facility] [address] [place] [address] Ale Dorantes PA [address] [place] [address] Arrived [facility] Comment on above: Arrived Start: 05-01-2024 End: 05-01-2024 Patient encounter procedure 05/01/2024 5:00 PM EST Office Visit [facility] [address] [address] Sabrina Weaver, RAISE DRILLER [address], [place] [address] [facility] Start: 04-11-2024 End: 04-11-2024 Patient encounter procedure 04/11/2024 4:00 PM EST Office Visit [facility] [address] [place] [address] Sabrina Weaver, RAISE DRILLER [address], [place] [address] Arrived [facility] Comment on above: Arrived Start: 04-11-2024 End: 04-11-2025 25-hydroxyvitamin D3 [Mass/volume] in Serum or Plasma Vitamin D 25 hydroxy Total Lab Routine Encounter for vitamin deficiency screening Fatigue, unspecified type Vitamin D deficiency Expected: 04/11/2024 (Approximate), Expires: 04/11/2025 [facility] Comment on above: Expected: 04/11/2024 (Approximate), Expires: 04/11/2025 Start: 04-11-2024 End: 04-11-2025 Cobalamin (Vitamin B12) [Mass/volume] in Serum or Plasma Vitamin B12 Lab Routine Encounter for vitamin deficiency screening Fatigue, unspecified type B12 deficiency Expected: 04/11/2024 (Approximate), Expires: 04/11/2025 [facility] Comment on above: Expected: 04/11/2024 (Approximate), Expires: 04/11/2025 Start: 04-11-2024 End: 04-11-2025 Iron and Iron binding capacity panel - Serum or Plasma Iron and TIBC Lab Routine Fatigue, unspecified type Anemia, unspecified type Expected: 04/11/2024 (Approximate), Expires: 04/11/2025 [facility] Comment on above: Expected: 04/11/2024 (Approximate), Expires: 04/11/2025 Start: 04-11-2024 End: 04-11-2025 Thyroxine (T4) free [Mass/volume] in Serum or Plasma T4, free Lab Routine Screening for thyroid disorder Fatigue, unspecified type Expected: 04/11/2024 (Approximate), Expires: 04/11/2025 [facility] Comment on above: Expected: 04/11/2024 (Approximate), Expires: 04/11/2025 Start: 04-11-2024 End: 06-09-2025 US Breast - bilateral Bilateral breast US complete Imaging Routine Encounter for breast cancer screening other than mammogram Other specified disorders of breast Expected: 04/11/2024, Expires: 06/09/2025 [facility] Work Phone: Comment on above: Expected: 04/11/2024 , Expires: 06/09/2025 Start: 03-23-2024 Tobacco Screening Tobacco Screening [facility] Start: 03-22-2024 Adult BMI Screening Adult BMI Screen ing [facility] Start: 03-22-2024 Depression Screening Depression Scre ening [facility] Start: 01-17-2024 End: 01-17-2024 Patient encounter procedure 01/17/2024 3:00 PM EDT Office Visit [facility] [address] [facility] [address] [place] [address] Alvarez Nguyen MD [address] [facility] [address] [place] [address] [facility] Start: 01-09-2024 Throat culture Throat Culture [facility] Start: 01-09-2024 Bacteria identified in Throat by Aerobe culture [facility] Start: 12-03-2023 Influenza vaccination N [facility] Start: 08-15-2023 End: 08-15-2023 Patient encounter procedure 08/15/2023 1:00 PM EDT Office Visit [facility] [address] [place] [phone] Macario Andrade, DO [address] [place], [place] [phone] [facility] Start: 05-11-2023 End: 05-11-2023 Patient encounter procedure 05/11/2023 11:40 AM EST Office Visit [facility] [address] [facility] [place] [phone] Macario Andrade, DO [address] [place] [address] BV (bacterial vaginosis) [facility] Comment on above: BV (bacterial vagino sis) Start: 03-22-2023 End: 03-22-2024 DBT Breast - bilateral screening Mammography screening bilateral with CAD Imaging Routine Encounter for screening mammogram for malignant neoplasm of breast Expected: 03/22/2023, Expires: 03/22/2024 [facility] Work Phone: Comment on above: Expected: 03/22/2023 , Expires: 03/22/2024 Start: 12-02-2022 Influenza vaccination Influenza Vacc ine [facility] Start: 08-03-2018 Screening for malign ant neoplasm of breast Mammogram [facility] Start: 2016 Administration of varicella zoster vaccine Zoster (Shingles) Vaccine (1 of 2) [facility] Start: 1996 Screening for malign ant neoplasm of cervix [facility] Start: 12-09-1987 Screening for malign ant neoplasm of cervix Pap Smear [facility] Start: 1985 DTaP,Tdap and Td Vaccines (1 - Tdap) DTaP,Tdap and Td Vaccines (1 - Tdap) [employer] Start: 1966 Screening for malign ant neoplasm of colon [facility] Bacteria identified in Urine by Culture [facility] End: 06-04-2024 Bacteria identified in Urine by Culture Urine culture (clean catch) Microbiology Routine Urinary tract infection symptoms 1 Occurrences starting 06/05/2023 until 06/04/2024 [employer] Work Phone: Comment on above: 1 Occurrences starti ng 06/05/2023 until 06/04/2024 Bacteria identified in Urine by Culture Urine culture (clean catch) Microbiology Routine Urinary tract infection symptoms 06/05/2023 9:47 PM EST [facility] Different ial [facility] - Blood CBC and differential Lab Routine Fatigue, unspecified type Ordered: 04/11/2024 [facility] Comment on above: Ordered: 04/11/2024 CHLAMYDIA TRACHOMATI S (GENITO/STI) CHLAMYDIA TRACHOMATIS (GENITO/STI) Lab Routine Vaginal discharge Vaginal burning Exposure to STD Ordered: 05/21/2024 [facility] Comment on above: Ordered: 05/21/2024 CHLAMYDIA TRACHOMATI S (GENITO/STI) CHLAMYDIA TRACHOMATIS (GENITO/STI) Lab Routine Vaginal itching Ordered: 12/12/2024 [facility] Comment on above: Ordered: 12/12/2024 Comprehensive metabo lic 2000 panel - Serum or Plasma Comprehensive metabolic panel Lab Routine Adult general medical examination Ordered: 04/11/2024 [facility] Comment on above: Ordered: 04/11/2024 Cortisol Cortisol Lab Rou mckinley Hot flashes Ordered: 04/11/2024 [facility] Comment on above: Ordered: 04/11/2024 Estradiol Estradiol Lab Ro utine Hot flashes Ordered: 04/11/2024 [facility] Comment on above: Ordered: 04/11/2024 Estrone Estrone Lab Rout ine Hot flashes Ordered: 04/11/2024 [facility] Comment on above: Ordered: 04/11/2024 Follicle stimulating hormone Follicle stimulating hormone Lab Routine Hot flashes Ordered: 04/11/2024 [facility] Comment on above: Ordered: 04/11/2024 End: 10-24-2024 Iron and TIBC Iron and TIBC Lab Routine Other iron deficiency anemia 1 Occurrences starting 10/25/2023 until 10/24/2024 [facility] Work Phone: Comment on above: 1 Occurrences starti ng 10/25/2023 until 10/24/2024 Lipid 1996 panel - S arnaud or Plasma Lipid panel Lab Routine Screening for lipid disorders Ordered: 04/11/2024 [facility] Comment on above: Ordered: 04/11/2024 Luteinizing hormone Luteinizing hormone Lab Routine Hot flashes Ordered: 04/11/2024 [facility] Comment on above: Ordered: 04/11/2024 Neisseria gonorrhoea e DNA [Presence] in Unspecified specimen by YULISSA with probe detection Neisseria gonorrhea DNA probe, direct Lab Routine Vaginal discharge Vaginal burning Exposure to STD Ordered: 05/21/2024 [facility] Comment on above: Ordered: 05/21/2024 Neisseria gonorrhoea e DNA [Presence] in Unspecified specimen by YULISSA with probe detection Neisseria gonorrhea DNA probe, direct Lab Routine Vaginal itching Ordered: 12/12/2024 [facility] Comment on above: Ordered: 12/12/2024 Progesterone Progesterone Lab Routine Hot flashes Ordered: 04/11/2024 [facility] Comment on above: Ordered: 04/11/2024 Supine abdominal X-ray [facility] SURESWAB(R) ADVANCED VAGINITIS PLUS, TMA SURESWAB(R) ADVANCED VAGINITIS PLUS, TMA Pathology and Cytology Routine Vaginal discharge Vaginal burning Exposure to STD Ordered: 05/21/2024 [facility] Work Phone: Comment on above: Ordered: 05/21/2024 SURESWAB(R) ADVANCED VAGINITIS PLUS, TMA SURESWAB(R) ADVANCED VAGINITIS PLUS, TMA Pathology and Cytology Routine Vaginal itching Ordered: 12/12/2024 [facility] Comment on above: Ordered: 12/12/2024 Testosterone, free, total Testosterone, free, total Lab Routine Hot flashes Ordered: 04/11/2024 [facility] Comment on above: Ordered: 04/11/2024 THIN PREP TIS PAP AN D HR HPV DNA THIN PREP TIS PAP AND HR HPV DNA Pathology and Cytology Routine Well woman exam with routine gynecological exam Ordered: 12/12/2024 [facility] Comment on above: Ordered: 12/12/2024 Thyrotropin [Units/volume] in Serum or Plasma TSH Lab Routine Screening for thyroid disorder Fatigue, unspecified type Ordered: 04/11/2024 [facility] Comment on above: Ordered: 04/11/2024 [facility] Payers Date Payer Category Payer Self-pay 2023 Unknown [id number] 2022 Private Health Insurance [id number] 2022 Unknown [id number] 1966 Unknown [id number] 2.16.84 [id number] 1966 Unknown [id number] 2.16.84 [id number] 1966 Unknown [id number] 2.16.8 [id number] 1966 Unknown [id number] 2.16.84 0.1.564969.3.579.2.1286 1966 Unknown [id number] 2.16.8 [id number] 1966 Unknown [id number] 2.16.84 [id number] 1966 Unknown [id number] 2.16.84 [id number] 1966 Unknown [id number] 2.16.84 [id number] 1966 Unknown [id number] 2.16.84 0.1.284424.3.579.2.1259 1966 Unknown [id number] 2.16.84 [id number] 1966 Unknown [id number] 2.16.84 [id number] 1966 Unknown [id number] 2.16.84 0.1.370174.3.579.2.1259 1966 Unknown [id number] 2.16.84 [id number] 1959 Unknown [id number] 2.16. [id number] Unknown [id number] 2.16.8 [id number] Social History Date Type Detail Facility Unknown if ever smoked [facility] Other Start: 01-17-2024 End: 07-29-2024 Sex Assigned At [facility] Other Start: 1965 Sex Assigned At Female [facility] Start: 1965 Sex Assigned At Not on file [facility] Start: 03-22-2023 End: 01-17-2024 Tobacco smoking status MOIS Never smoked tobacco [facility] Start: 03-22-2023 End: 01-17-2024 Tobacco use and exposure Smokeless tobacco non-user [facility] Start: 01-17-2024 End: 12-12-2024 Alcoholic beverage intake Current drinker of alcohol (finding) [facility] Start: 01-17-2024 End: 07-29-2024 History of Social function [facility] Frequency of Alcohol Consumption 2-4 times a month [facility] Start: 11-03-2016 Alcohol Comment socially [facility] Start: 07-25-2024 Sex Female (finding) [facility] How often to you hav e a drink containing alcohol? Never [facility] Goals Date Patient Goal Desired Activity /State Personal health goal Functional Status Date Assessment Result Facility 07-29-2024 Total score [AUDIT-C] 0 07/30/19 25 4:50 PM EDT Ilene Page MA [facility] 07-29-2024 Patient Health Quest ionnaire 2 item (PHQ-2) [Reported] [facility] Clinical Notes 03-31-2021 to 12-12-2024 CARTER Perez - 12/12/2024 1:30 PM Lauren Weaver NP - 07/29/2024 4:40 PM CARTER Rios - 05/21/2024 2:40 PM Dontrell Dempsey LPN - 05/01/2024 5:00 PM EST Note Date & Type Note Facility 12-12-2024 History of Presen t illness Narrative Reason for Appointment: Patient ID: Kassi Garza [...] nursing note reviewed. Exam conducted with a warehouse manager present. Vitals: Estimated body mass index is 21.36 kg/m as calculated from the following: Height [...] fatigue, she can not stay asleep she will just awake at night. Patient asked we can do non-hormonal or hormonal medication. Patient does have dizziness when standing occasionally and vertigo ruled out by ENT. Patient cultures obtained without difficulty to rule out Yeast. Diflucan sent to pharmacy. Orders Placed This Encounter Procedures Bilateral screening mammogram DEXA bone density Follow Up: Patient is to return in one year for annual unless needed otherwise. Documented by Pratima Hernadnez LPN on behalf of: CARTER Perez documented in this encounter [facility] 07-29-2024 History of Presen t illness Narrative Family Medicine Note Subjective: Chief Complaint: Lab review HPI: Kassi Garza presents to the office today for lab review. The patient did have repeat lab work completed which she would like to review today. She is also here today to follow-up on her anxiety. She was started on Zoloft at her last office visit and reports that she is tolerating this well. She states that her anxiety is much better controlled and is requesting refills be sent to her pharmacy. She also has concerns regarding left breast pain. The patient states that she had her breast implants removed over a year ago and continues with pain of the left breast. She recently had an US of the breasts completed for breast cancer screening, however she is concerned that not everything was visualized with the ultrasound alone. She denies further complaints or concerns at this time. Current Outpatient Medications: albuterol HFA 90 mcg/act inhaler, Inhale 2 puffs every 4 (four) hours if needed for wheezing, Disp: 18 g, Rfl: 11 Ascorbic Acid (vitamin C) 250 MG tablet, Take 250 mg by mouth Daily, Disp: , Rfl: estradiol (Estrace) 0.1 MG/GM vaginal cream, Insert 2 g into the vagina Daily Apply 1/2 APPLICATOR daily for 2 weeks, then twice weekly, Disp: 42.5 g, Rfl: 3 fluticasone (Flonase) 50 MCG/ACT nasal spray, Administer 2 sprays into each nostril Daily Shake gently. Before first use, prime pump. After use, clean tip and replace cap., Disp: 16 g, Rfl: 0 montelukast (Singulair) 10 MG tablet, Take 1 tablet (10 mg) by mouth at bedtime, Disp: 30 tablet, Rfl: 11 rosuvastatin (Crestor) 10 MG tablet, Take 10 mg by mouth Daily, Disp: , Rfl: ergocalciferol (Vitamin D2) 1.25 MG (26595 UT) capsule, Take 1 capsule (1.25 mg) by mouth 1 (one) time per week, Disp: 12 capsule, Rfl: 2 sertraline (Zoloft) 25 MG tablet, Take 1 tablet (25 mg) by mouth Daily, Disp: 30 tablet, Rfl: 5 Medical History: Past Medical History: Diagnosis Date Asthma BMI 22.0-22.9, adult Breast cancer screening by mammogram Ear problems Encounter for gynecological examination (general) (routine) without abnormal findings Post menopausal syndrome Allergies: No Known Allergies Social History: Tobacco Use: Tobacco Use: Low Risk (07/29/2024) Patient History Smoking Tobacco Use: Never Smokeless Tobacco Use: Never Passive Exposure: Not on file Objective: Vitals: 07/29/24 1646 BP: 115/68 Pulse: 99 Resp: 20 Temp: 97.9 F SpO2: 96% Weight: 114 lb 3.2 oz Height: 5' 2 Physical Exam Vitals and nursing note reviewed. Constitutional: General: She is not in acute distress. Appearance: Normal appearance. She is not ill-appearing. HENT: Head: Normocephalic and atraumatic. Right Ear: External ear normal. Left Ear: External ear normal. Nose: Nose normal. Mouth/Throat: Mouth: Mucous membranes are moist. Eyes: Extraocular Movements: Extraocular movements intact. Pupils: Pupils are equal, round, and reactive to light. Cardiovascular: Rate and Rhythm: Normal rate. Pulses: Normal pulses. Heart sounds: No murmur heard. Pulmonary: Effort: Pulmonary effort is normal. Breath sounds: No wheezing, rhonchi or rales. Abdominal: General: Bowel sounds are normal. There is no distension. Tenderness: There is no abdominal tenderness. Musculoskeletal: General: Normal range of motion. Cervical back: Normal range of motion. Skin: General: Skin is warm and dry. Neurological: General: No focal deficit present. Mental Status: She is alert and oriented to person, place, and time. Psychiatric: Mood and Affect: Mood normal. Behavior: Behavior normal. Judgment: Judgment normal. Assessment: Assess/Plan Problem List Items Addressed This Visit Vitamin D deficiency Relevant Medications ergocalciferol (Vitamin D2) 1.25 MG (98901 UT) capsule Other Visit Diagnoses Breast pain, left - Primary Relevant Orders Left diagnostic mammogram She has continued complaints of left breast pain since her breast implant removal over a year ago. She recently had an US of the breast completed for breast cancer screening, however would like to have a mammogram of the left breast completed due to her continued pain. This will be sent today. Anxiety Relevant Medications sertraline (Zoloft) 25 MG tablet Medication as directed. Counseling recommended. Verbalizes understanding of the need to be seen in the emergency department for suicidal/homicidal ideation, excessive stress, elevated blood pressure or palpitations. Patient offers understanding of treatment plan. I discussed the side effects of the medications prescribed and to seek medical care if they arise. Discussed stress management strategies, social support and importance of healthy diet, exercise and regular sleep habits. Advised on relaxation methods to decrease anxiety and depression. All questions answered. Call the office with any other questions or concerns. Follow-up: Follow up in about 6 months (around 01/28/2025) for CIM. documented in this encounter [facility] 05-21-2024 History of Presen t illness Narrative Reason for Appointment: Patient ID: Kassi Garza is a 58 y.o. female who presents for STI Screening Patient presents today for STD Check. MEDICATIONS Current Outpatient Medications Medication Instructions albuterol HFA 90 mcg/act inhaler 2 puffs, Inhalation, Every 4 hours PRN cholecalciferol (VITAMIN D-3) 1,000 Units, Daily ergocalciferol (VITAMIN D2) 1.25 mg, Oral, Weekly fluticasone (Flonase) 50 MCG/ACT nasal spray 2 sprays, Each Nostril, Daily, Shake gently. Before first use, prime pump. After use, clean tip and replace cap. meclizine (ANTIVERT) 12.5 mg, Oral, 3 times daily PRN montelukast (SINGULAIR) 10 mg, Oral, Nightly rosuvastatin (CRESTOR) 10 mg, Daily sertraline (ZOLOFT) 25 mg, Oral, Daily vitamin C 250 mg, Daily ALLERGIES No Known Allergies PROBLEMS Active Ambulatory Problems Diagnosis Date Noted Constipation 01/08/2024 Difficulty walking 01/08/2024 Disorder of female genital organs 01/08/2024 Encounter for cosmetic procedure 01/18/2023 [place] 12/05/2007 Hyperlipidemia ([facility] 01/08/2024 Irritable bowel syndrome 12/05/2007 Plantar fasciitis of left foot 02/14/2019 Tachycardia 02/14/2019 Urinary tract infection without hematuria 07/03/2019 B12 deficiency 04/11/2024 Anemia 04/11/2024 Hot flashes 04/11/2024 Vitamin D deficiency 04/11/2024 Fatigue 04/11/2024 Resolved Ambulatory Problems Diagnosis Date Noted No Resolved Ambulatory Problems Past Medical History: Diagnosis Date Asthma ([facility] BMI 22.0-22.9, adult Breast cancer screening by mammogram Ear problems Encounter for gynecological examination (general) (routine) without abnormal findings Post menopausal syndrome HISTORY PAST MEDICAL HISTORY SOCIAL HISTORY Past Medical History: Diagnosis Date Asthma ([facility] BMI 22.0-22.9, adult Breast cancer screening by [...] Date FEMINIZING AUGMENTATION MAMMOPLASTY Bilateral HERNIA REPAIR [facility] REVIEW OF SYSTEMS Review of Systems: Review of Systems Constitutional: Negative. HENT: Negative. Eyes: Negative. Respiratory: Negative. Cardiovascular: Negative. Gastrointestinal: Negative. Genitourinary: Negative. Musculoskeletal: Negative. Skin: Negative. Neurological: Negative. All other systems reviewed and are negative. Hematological: Negative. Endocrine: Negative. Allergic/Immunologic: Negative. OBJECTIVE Objective: Physical Exam Constitutional: Appearance: Normal appearance. She is normal weight. HENT: Head: Normocephalic. Cardiovascular: Rate and Rhythm: Normal rate. Pulses: Normal pulses. Pulmonary: Effort: Pulmonary effort is normal. Breath sounds: Normal breath sounds. Abdominal: Palpations: Abdomen is soft. Musculoskeletal: General: Normal range of motion. Neurological: General: No focal deficit present. Mental Status: She is alert and oriented to person, place, and time. Psychiatric: Mood and Affect: Mood normal. Behavior: Behavior normal. Thought Content: Thought content normal. Judgment: Judgment normal. Vitals and nursing note reviewed. Vitals: Estimated body mass index is 21.22 kg/m as calculated from the following: Height as of 04/11/24: 5' 2 . Weight as of this encounter: 116 lb. BP: 102/64 No LMP recorded. Patient is postmenopausal. ASSESSMENT & PLAN ICD-10-CM 1. Vaginal discharge N89.8 SURESWAB(R) ADVANCED VAGINITIS PLUS, TMA CHLAMYDIA TRACHOMATIS (GENITO/STI) Neisseria gonorrhea DNA probe, direct CANCELED: POCT urinalysis dipstick manually resulted 2. Vaginal burning N94.89 SURESWAB(R) ADVANCED VAGINITIS PLUS, TMA CHLAMYDIA TRACHOMATIS (GENITO/STI) Neisseria gonorrhea DNA probe, direct CANCELED: POCT urinalysis dipstick manually resulted 3. Exposure to STD Z20.2 SURESWAB(R) ADVANCED VAGINITIS PLUS, TMA CHLAMYDIA TRACHOMATIS (GENITO/STI) Neisseria gonorrhea DNA probe, direct CANCELED: POCT urinalysis dipstick manually resulted Pt present today for vaginal itching, burning and white discharge. Pt desires to have cx's done at this visit. Cx's were collected at today's visit and pt is aware results will be back between 1-2 days. Patient states she has had symptoms for the past few months. We did discuss options if cultures are negative and will reach out to patient when results complete. Patient states she is post menopausal and uncertain if there symptoms are a new normal for her. Culutres obtained today and no significant discharge or changes noted. She has been prone to yeast and bv in the past. Denies any recent antibiotics or other changes in diet or activity Documented by Soha Cee MA on behalf of: CARTER Perez documented in this encounter [facility] 05-01-2024 History of Presen t illness Narrative Pt does not have any new concerns. Albuterol -- 2-3 week Shane Perico? Colace Antivert Called [facility] for them to send most recent lab results at this time. Family Medicine Note Subjective: Chief Complaint: Lab review, CIM HPI: Kassi Mitchell Workman presents to the office today for lab review and complaints of vertigo. The patient did complete lab work which she would like to review today. She also has complaints of on going intermittent dizziness. She reports that her dizziness occurs more frequently with position changes or when she moves her head from one side to the other. She also reports worsening anxiety symptoms. She is interested in starting medication to treat her anxiety which she would like to discuss today. She denies further complaints or concerns. Current Outpatient Medications: albuterol HFA 90 mcg/act inhaler, Inhale 2 puffs every 4 (four) hours if needed for wheezing, Disp: 18 g, Rfl: 11 Ascorbic Acid (vitamin C) 250 MG tablet, Take 250 mg by mouth Daily, Disp: , Rfl: cholecalciferol (Vitamin D-3) 25 MCG (1000 UT) capsule, Take 1,000 Units by mouth Daily, Disp: , Rfl: docusate sodium (Colace) 100 MG capsule, Take 1 capsule (100 mg) by mouth in the morning and 1 capsule (100 mg) before bedtime. Do all this for 10 days., Disp: 20 capsule, Rfl: 0 ergocalciferol (Vitamin D2) 1.25 MG (76431 UT) capsule, Take 1 capsule (1.25 mg) by mouth 1 (one) time per week, Disp: 12 capsule, Rfl: 0 fluticasone (Flonase) 50 MCG/ACT nasal spray, Administer 2 sprays into each nostril Daily Shake gently. Before first use, prime pump. After use, clean tip and replace cap., Disp: 16 g, Rfl: 0 meclizine (Antivert) 12.5 MG tablet, Take 1 tablet (12.5 mg) by mouth 3 (three) times a day as needed for dizziness, Disp: 30 tablet, Rfl: 11 montelukast (Singulair) 10 MG tablet, Take 1 tablet (10 mg) by mouth at bedtime, Disp: 30 tablet, Rfl: 11 rosuvastatin (Crestor) 10 MG tablet, Take 10 mg by mouth Daily, Disp: , Rfl: sertraline (Zoloft) 25 MG tablet, Take 1 tablet (25 mg) by mouth Daily, Disp: 30 tablet, Rfl: 1 Medical History: Past Medical History: Diagnosis Date Asthma ([facility]) BMI 22.0-22.9, adult Breast cancer screening by mammogram Ear problems Encounter for gynecological examination (general) (routine) without abnormal findings Post menopausal syndrome Allergies: No Known Allergies Social History: Tobacco Use: Tobacco Use: Low Risk (04/11/2024) Patient History Smoking Tobacco Use: Never Smokeless Tobacco Use: Never Passive Exposure: Not on file Objective: BP 124/82 HR 82 Physical Exam Vitals and nursing note reviewed. Constitutional: General: She is not in acute distress. Appearance: Normal appearance. She is not ill-appearing. HENT: Head: Normocephalic and atraumatic. Right Ear: External ear normal. Left Ear: External ear normal. Nose: Nose normal. Mouth/Throat: Mouth: Mucous membranes are moist. Eyes: Extraocular Movements: Extraocular movements intact. Pupils: Pupils are equal, round, and reactive to light. Cardiovascular: Rate and Rhythm: Normal rate. Pulses: Normal pulses. Heart sounds: No murmur heard. Pulmonary: Effort: Pulmonary effort is normal. Breath sounds: No wheezing, rhonchi or rales. Abdominal: General: Bowel sounds are normal. There is no distension. Tenderness: There is no abdominal tenderness. Musculoskeletal: General: Normal range of motion. Cervical back: Normal range of motion. Skin: General: Skin is warm and dry. Neurological: General: No focal deficit present. Mental Status: She is alert and oriented to person, place, and time. Psychiatric: Mood and Affect: Mood normal. Behavior: Behavior normal. Judgment: Judgment normal. Assessment: Assess/Plan Problem List Items Addressed This Visit Constipation - Primary Relevant Medications docusate sodium (Colace) 100 MG capsule Vitamin D deficiency Relevant Medications ergocalciferol (Vitamin D2) 1.25 MG (54448 UT) capsule Other Visit Diagnoses Vertigo Relevant Medications fluticasone (Flonase) 50 MCG/ACT nasal spray meclizine (Antivert) 12.5 MG tablet Other Relevant Orders Ambulatory referral to Physical Therapy Take medication as prescribed. Drink extra water and try not to add any extra salt to your diet. Avoid sudden head movements or standing too quickly. Please call the office if your symptoms are worsening. Anxiety Relevant Medications sertraline (Zoloft) 25 MG tablet We did review the patients symptoms of anxiety in office today. At this time she would like proeed with starting medication. This will be sent to her pharmacy today. Medication as directed. Counseling recommended. Verbalizes understanding of the need to be seen in the emergency department for suicidal/homicidal ideation, excessive stress, elevated blood pressure or palpitations. Patient offers understanding of treatment plan. I discussed the side effects of the medications prescribed and to seek medical care if they arise. Discussed stress management strategies, social support and importance of healthy diet, exercise and regular sleep habits. Advised on relaxation methods to decrease anxiety and depression. All questions answered. Call the office with any other questions or concerns. Follow-up: Follow up in about 3 months (around 07/30/2024) for CIM . documented in this encounter [facility] 04-11-2024 History of Presen t illness Narrative Family Medicine Note Subjective: Chief Complaint: Establish care HPI: Kassi Mitchell Workman presents to the office today to establish care. She has not been seen by a primary care provider since 2021. She does have a past medical history of asthma, breast implant removal, hypercholesteremia, and sinusitis. She is requesting lab work which will be sent today. She is also due for breast cancer screening which will also be ordered today. She does have several concerns today as well. She has had a cough for the past several weeks. She was recently seen at urgent care and was given prednisone for this. She has not been on any medications for asthma in some time and questions whether or not her cough is related to this. She also has concerns regarding hormone levels. She is postmenopausal, but feels that she would like to assess where her hormone levels are at to determine if this is related to her fatigue. Of note, she did have breast implant removal one year ago and still has intermittent pain from this. She is requesting to undergo a breast ultrasound versus mammogram because of this. This will be sent today. Current Outpatient Medications: Ascorbic Acid (vitamin C) 250 MG tablet, Take 250 mg by mouth Daily, Disp: , Rfl: cholecalciferol (Vitamin D-3) 25 MCG (1000 UT) capsule, Take 1,000 Units by mouth Daily, Disp: , Rfl: rosuvastatin (Crestor) 10 MG tablet, Take 10 mg by mouth Daily, Disp: , Rfl: albuterol HFA 90 mcg/act inhaler, Inhale 2 puffs every 4 (four) hours if needed for wheezing, Disp: 18 g, Rfl: 11 montelukast (Singulair) 10 MG tablet, Take 1 tablet (10 mg) by mouth at bedtime, Disp: 30 tablet, Rfl: 11 Medical History: Past Medical History: Diagnosis Date Asthma ([facility]) BMI 22.0-22.9, adult Breast cancer screening by mammogram Ear problems Encounter for gynecological examination (general) (routine) without abnormal findings Post menopausal syndrome Allergies: No Known Allergies Social History: Tobacco Use: Tobacco Use: Low Risk (04/11/2024) Patient History Smoking Tobacco Use: Never Smokeless Tobacco Use: Never Passive Exposure: Not on file Objective: Vitals: 04/11/24 1559 BP: 124/82 BP Location: Left arm Patient Position: Sitting Pulse: 82 Temp: 97.2 F TempSrc: Temporal SpO2: 92% Weight: 114 lb 3.2 oz Height: 5' 2 Physical Exam Vitals and nursing note reviewed. Constitutional: General: She is not in acute distress. Appearance: Normal appearance. She is not ill-appearing. HENT: Head: Normocephalic and atraumatic. Right Ear: Tympanic membrane, ear canal and external ear normal. There is no impacted cerumen. Left Ear: Tympanic membrane, ear canal and external ear normal. There is no impacted cerumen. Nose: Nose normal. Mouth/Throat: Mouth: Mucous membranes are moist. Eyes: Extraocular Movements: Extraocular movements intact. Pupils: Pupils are equal, round, and reactive to light. Neck: Vascular: No carotid bruit. Cardiovascular: Rate and Rhythm: Normal rate. Pulses: Normal pulses. Heart sounds: No murmur heard. Pulmonary: Effort: Pulmonary effort is normal. Breath sounds: No wheezing, rhonchi or rales. Abdominal: General: Bowel sounds are normal. There is no distension. Tenderness: There is no abdominal tenderness. Musculoskeletal: General: Normal range of motion. Cervical back: Normal range of motion. Skin: General: Skin is warm and dry. Neurological: General: No focal deficit present. Mental Status: She is alert and oriented to person, place, and time. Psychiatric: Mood and Affect: Mood normal. Behavior: Behavior normal. Judgment: Judgment normal. Assessment: Assess/Plan Problem List Items Addressed This Visit Hyperlipidemia (CMS/HCC) B12 deficiency Relevant Orders Vitamin B12 Anemia Relevant Orders Iron and TIBC Hot flashes Relevant Orders Cortisol Estradiol Estrone Follicle stimulating hormone Luteinizing hormone Progesterone Testosterone, free, total Vitamin D deficiency Relevant Orders Vitamin D 25 hydroxy Total Fatigue Relevant Orders Vitamin D 25 hydroxy Total Vitamin B12 T4, free TSH CBC and differential Iron and TIBC Other Visit Diagnoses Encounter for breast cancer screening other than mammogram - Primary Relevant Orders Bilateral breast US complete Encounter for vitamin deficiency screening Relevant Orders Vitamin D 25 hydroxy Total Vitamin B12 Screening for lipid disorders Relevant Orders Lipid panel Adult general medical examination Relevant Orders Comprehensive metabolic panel Screening for thyroid disorder Relevant Orders T4, free TSH Other specified disorders of breast Relevant Orders Bilateral breast US complete Bronchitis History of asthma Relevant Medications montelukast (Singulair) 10 MG tablet albuterol HFA 90 mcg/act inhaler She does have complaints of an on going cough and feels this may be related to her asthma history. I do feel that she would benefit from an as needed inhaler in addition to singulair. These medications will be sent to her pharmacy today. Encounter to establish care Wellness performed at office visit today. Height, weight, BMI, problem list, and immunizations records reviewed. Encourage annual vision screenings and semi-annual dental care. Encourage to eat a diet that is rich in plant-based foods and lean protein. Encourage regular periods of exercise. Limit or eliminate junk food and sources of excess calories. Encourage to maintain open communication with provider regarding any changes in condition. Encourage 150 minutes of exercise weekly or amount appropriate to current level of function. Identify family/friend/social support and maintaining emotional connections. Follow-up as discussed. Patient verbalized importance of keeping open communication with health care providers. Follow-up: Follow up in about 3 weeks (around 05/02/2024) for Lab review . documented in this encounter [facility] 01-17-2024 History of Presen t illness Narrative Subjective Patient ID: Kassi Mitchell Workman is a 58 y.o. female who presents for Ear Problem (Retraction of TM. Audio 01/10/24) Pt reports aftyer she has laid down for a few hours she awakens with ear pain and a headache. Told by PCP there is ME effusion and TM retraction. 01/09 audio shows mild jeffry HFSNHL with minimal asymmetry. Pt states she has been told by her dentist she grinds her teeth. Has an oral appliance but does not use. Pt uses flonase nightly. Review of Systems All other systems reviewed and are negative. 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 Hyperlipidemia ([facility]) 01/08/2024 Irritable bowel syndrome 12/05/2007 Plantar fasciitis of left foot 02/14/2019 Tachycardia 02/14/2019 Urinary tract infection without hematuria 07/03/2019 Resolved Ambulatory Problems Diagnosis Date Noted No Resolved Ambulatory Problems Past Medical History: Diagnosis Date Asthma ([facility]) BMI 22.0-22.9, adult Breast cancer screening by mammogram Ear problems Encounter for gynecological examination (general) (routine) without abnormal findings Post menopausal syndrome Past Surgical History: Procedure Laterality Date FEMINIZING AUGMENTATION MAMMOPLASTY Bilateral HERNIA REPAIR [facility] No Known Allergies Current Outpatient Medications on File Prior to Visit Medication Sig Dispense Refill Ascorbic Acid (vitamin C) 250 MG tablet Take 250 mg by mouth Daily cholecalciferol (Vitamin D-3) 25 MCG (1000 UT) capsule Take 1,000 Units by mouth Daily fexofenadine (Mickie) 60 MG tablet Take 60 mg by mouth Daily rosuvastatin (Crestor) 10 MG tablet Take 10 mg by mouth Daily [DISCONTINUED] ferrous sulfate 325 (65 Fe) MG tablet Take 325 mg by mouth in the morning. Take with meals. [DISCONTINUED] iron polysaccharides (ProFe) 391.3 (180 Fe) MG capsule Take 1 capsule (391.3 mg) by mouth Daily 30 capsule 11 [DISCONTINUED] pravastatin (Pravachol) 20 MG tablet Take 40 mg by mouth Daily No current facility-administered medications on file prior to visit. Objective Last Recorded Vitals There were no vitals filed for this visit. ENT Physical Exam Constitutional Appearance: patient appears well-developed, well-nourished and well-groomed, Head and Face Appearance: head appears normal and face appears atraumatic; Ear Ear Canals: right ear canal normal; left ear canal normal; Tympanic Membranes: right tympanic membrane normal; left tympanic membrane normal; Ear comments: Jeffry tymps normal Nose External Nose: nares patent bilaterally; external nose normal; Internal Nose: septum normal; Oral Cavity/Oropharynx Tongue: normal; Oral mucosa: normal; Hard palate: normal; Soft palate: normal; Tonsils: normal; Neck Neck: neck normal; neck palpation normal; Thyroid: thyroid normal; Respiratory Inspection: breathing unlabored; normal breathing rate; Auscultation: breath sounds are clear; Cardiovascular Inspection: extremities are warm and well perfused; no peripheral edema present; Auscultation: regular rate and rhythm; Assessment/Plan Diagnoses and all orders for this visit: Pain in ear, bilateral Imbalance ETD (Eustachian tube dysfunction), bilateral Sensorineural hearing loss (SNHL), bilateral Pt otologic exam is normal. Pt's otalgia is due to TMJ. Recommend nightly use of her oral appliance. If sx persist, consider an oral surgery eval. Pt describes dysequalibrium that does not appear otologic. Discussed vest rehab eval, but pt deferred. documented in this encounter [facility] 01-10-2024 History of Presen t illness Narrative History: Pt was referred to ENT because of bilateral ETD. Pt went to physician yesterday and was told she has fluid in her left ear and a little fluid in her right ear. Pt's ears hurt at night when she lays on them. Pt has not noticed difficulty hearing. Pt 's ears also itch. History is positive for noise exposure (pt just got off of work.) Pt uses OTC medication to help with her allergies (mickie.) Otoscopic Exam: Ear canal clear and TM intact AU Pure Tone Audiometry Right Ear: Mild sensorineural hearing loss at 4K Hz and 8K Hz Left Ear: Mild sensorineural hearing loss above 4K Hz Speech Audiometry Right SRT = 20 dB and word discrimination score at 50 dBHL = 100% Left SRT = 10 dB and word discrimination score at 50 dBHL = 100% Tympanometry Right Ear: Type A tympanogram Left Ear: Noisy tympanogram documented in this encounter [facility] 10-30-2023 Evaluation note Authored October 30, 2023 2:11 pm Bloating, abdominal pain, ga s and infrequent stooling 2 or 3 times weekly [facility] Work Phone: [phone] 705-375707-24-2024 History of Present illness Narrative* Laurence Amato, [employer] - 10/25/2023 4:00 PM EDT Images from the original note were not included. [address] [facility] [id number] SUBJECTIVE: Patient ID: Sheree Garza is a 57 y.o. female. Chief Complaint Patient presents with Follow-up iron Presents for anemia follow up. States she has been feeling more fatigued for awhile now. Relates her CONFORM[employer] PAD FORMER, Dr. Andrade changed her iron supplement to different formula. Is tolerating well. Additional concern is ear discomfort. States if she lays on her ear too long, is painful. She wouldlike an ENT referral. She would like to discuss alternative cholesterol medication. Cholesterol consistently remains elevated. Anemia Presents for follow-up visit. Symptoms include light-headedness, malaise/fatigue and palpitations. Signs of blood loss that are not present include hematemesis, hematochezia, melena, menorrhagia and vaginal bleeding. There are no compliance problems. Compliance with medications is 76-100%. The following portions of the patient's history were reviewed and updated as appropriate: allergies, current medications, past family history, past medical history, past social history, past surgicalhistory and problem list. Past Surgical History: Procedure Laterality Date BREAST SURGERY BREAST AUGMENTATION COLONOSCOPY N/A 12/27/2021 Performed by Jae Lazaro DO at [facility] HERNIA REPAIR 04/03/1968 child inginal TONSILLECTOMY Past Medical History: Diagnosis Date Hyperlipidemia elevated on screening test PONV (postoperative nausea and vomiting) Wears glasses There is no immunization history on file for this patient. REVIEW OF SYSTEMS: Review of Systems Constitutional: Positive for malaise/fatigue. Eyes: Negative for visual disturbance. Cardiovascular: Positive for palpitations. Gastrointestinal: Negative. Negative for hematemesis, hematochezia and melena. Endocrine: Negative. Genitourinary: Negative for menorrhagia, menstrual problem, pelvic pain and vaginal bleeding. Musculoskeletal: Negative. Skin: Negative. Allergic/Immunologic: Negative. Neurological: Positive for light-headedness. Negative for syncope and facial asymmetry. Psychiatric/Behavioral: Negative. PHYSICAL EXAMINATION: Vitals: 10/25/23 1558 BP: 110/70 BP Site: Left Arm BP Postition: Sitting Pulse: 108 Resp: 18 Temp: 36.9 C (98.5 F) TempSrc: Oral SpO2: 99% Weight: 49.7 kg (109 lb 8 oz) Height: 157.5 cm (5' 2 ) Physical Exam Vitals and nursing note reviewed. Constitutional: General: She is not in acute distress. Appearance: She is well-developed. She is not diaphoretic. HENT: Head: Normocephalic and atraumatic. Right Ear: External ear normal. Tympanic membrane is retracted. Left Ear: External ear normal. Tympanic membrane is retracted. Nose: Nose normal. Mouth/Throat: Mouth: Mucous membranes are moist. Pharynx: No oropharyngeal exudate. Comments: Mild erythema. Post nasal drainage Eyes: General: Right eye: No discharge. Left [...] Thought content normal. Judgment: Judgment normal. ASSESSMENT/PLAN: Kassi was seen today for follow-up. 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 Iron deficiency anemia Check iron and TIBC Continue iron supplements as ordered 2. Retraction of TMs Bilateral. Education regarding allergies. She is currently taking cetrizine. She did try pseudoephedrine products in the past but did not like how it made her feel. Start medrol dose pack -Referral to ENT per patient request 3. Mixed hyperlipidemia Component Latest Ref Rn 03/22/2023 Cholesterol 150 - 200 mg/dL 280 (H) Triglycerides 27 - 150 mg/dL 175 (H) HDL >39 mg/dL 71 VLDL 0 - 30 mg/dL 35 (H) LDL (calc) <130 mg/dL 174 (H) Cholesterol:HDL Ratio 1.0 - 5.0 3.9 HDL is excellent, 71. Elevated cholesterol 280, LDL 174 Has tried a statin in the past but caused muscle aches. She is agreeable to try a different brand statin. Start rosuvastatin 10 mg oral daily. Discontinue Pravachol. ALL QUESTIONS ANSWERED Total time spent was 25 minutes: Preparing to see the patient (e.g., review of tests) Obtaining and/or reviewing separately obtained history Performing a medically appropriate examination and/or evaluation Counseling and educating the patient/family/caregiver Ordering medications, tests, or procedures Follow-up: Annual physical LORENZA Sandoval 10/25/231753 documented in this encounterUniversity Hospitals Health System03-04-2024 History of Present illness Narrative* Sarah Quezada, MARGARITO-EXPORT FREIGHT MANAGER - 06/05/2023 3:40 PM EST Subjective Patient ID: Sheree Garza is a 57 y.o. female. Has had [...] she was just treated for bv by hergyn it was found on her pap No [...] past medical history, past social history, past surgicalhistory, problem list, and medication reconciliation was completed including current medication andpost discharge medication. Review of Systems Constitutional: Negative [...] Thought content normal. Judgment: Judgment normal. Assessment/Plan Kassi was seen today for urinary tract infection. [...] for a uti, but will send for culturejust to ensure She is to drink fluids [...] SHERRI Jimenez 06/05/23 1726 documented in this encounterUniversity Hospitals Health System02-08-2024 History of Present illness Narrative* Macario Andrade DO - 05/11/2023 11:40 AM EST Reason for Appointment: Patient ID: Kassi Mitchell Workman is a 57 y.o. female who presents for BV Patient presents today for Acute Visit appointment. Current Medications: has a current medication list which includes the following prescription(s): ciprofloxacin and metronidazole. Medical History: Active Ambulatory Problems Diagnosis Date Noted No Active Ambulatory Problems Resolved Ambulatory Problems Diagnosis Date Noted No Resolved Ambulatory Problems Past Medical History: Diagnosis Date Asthma ([facility]) BMI 22.0-22.9, adult Breast cancer screening by [...] nursing note reviewed. Exam conducted with a warehouse manager present. Vitals: Estimated body mass index is [...] will reevaluate at that time Documented by Macario Andrade DO on behalf of: Macario Andrade DO documented in this encounterWashington County Memorial [id number] History of Present illness Narrative* Laurence Amato, MARGARITO-SERVICE AND REPAIR SUPERVISOR - 03/22/2023 5:15 PM EST Images from the original note were not included. [address] [place] [address] SUBJECTIVE: Patient ID: Sheree Garza is a 57 y.o. female. Chief Complaint Patient presents with Annual Exam Presents for annual physical. States she is 2 months S/P elective breast implant removal. Recovering well. Contracted COVID-19 around . Is still feeling fatigued. Would like additional testing with her labs. She is not sure if she may be anemic. Works full-time at [employer]. Does not smoke. The following portions of the patient's history were reviewed and updated as appropriate: allergies, current medications, past family history, past medical history, past social history, past surgicalhistory and problem list. Past Surgical History: Procedure [...] and the following intervention(s) were applied: encouragement toexercise. Physical Exam Vitals and nursing note reviewed. [...] Thought content normal. Judgment: Judgment normal. ASSESSMENT/PLAN: Kassi was seen today for annual exam. Diagnoses [...] LORENZA Sandoval 03/28/23 1220 documented in this encounterUniversity Hospitals Health System10-12-2022 Evaluation note* Encounter Date Diagnosis Assessment Notes Treatment Notes Treatment Clinical Notes Jan, Dysuria (ICD-10 - R30.0) Jan, [...] no improvement in 2 to 3 days. [facility] Other 08-18-2022 Evaluation note* Encounter Date Diagnosis [...] after UTI is treated to reduce costs. [facility] Other 12-29-2021 Evaluation note* Encounter Date Diagnosis [...] no improvement in 2 to 3 days. [facility] Other Evaluation noteNo assessment information available [facility] Work Phone: Evaluation note* Diagnosis BV (bacterial vaginosis) Unspecified vaginitis and vulvovaginitis UTI symptoms Yeast infection [facility]* Diagnosis Onset Date Resolution Status Constipation acute [facility] Work Phone: Evaluation note* Diagnosis Sensorineural hearing loss (SNHL) of both ears- Primary Eustachian tube dysfunction, bilateral Otalgia, bilateral documented [facility]* Diagnosis Pain in ear, bilateral- Primary Imbalance Abnormality of gait ETD (Eustachian tube dysfunction), bilateral Sensorineural hearing loss (SNHL), bilateral [facility]* Diagnosis Encounter for breast cancer screening other than mammogram- Primary Encounter for vitamin deficiency screening Screening for lipid disorders Adult general medical examination Unspecified general medical examination Screening for thyroid disorder Hyperlipidemia, unspecified hyperlipidemia type ([facility]) Fatigue, unspecified type Vitamin D deficiency Hot flashes Anemia, unspecified type B12 deficiency Other specified disorders of breast Bronchitis Bronchitis, not specified as acute or chronic History of asthma Personal history of other diseases of respiratory system Encounter to establish care documented [facility] this [facility]* Diagnosis Other constipation- Primary Vertigo Dizziness and giddiness Vitamin D deficiency Anxiety Anxiety state, unspecified documented [facility]* Diagnosis Annual physical exam- Primary Routine general medical examination at a health care facility Blood tests for routine general physical examination Laboratory examination ordered as part of a routine general medical examination Fatigue, unspecified type Vitamin D deficiency Encounter for screening mammogram for malignant neoplasm of breast Mixed hyperlipidemia Hypokalemia Hypopotassemia documented [facility] Diagnosis Urinary tract infection symptoms- Primary Hypokalemia Hypopotassemia Viral upper respiratory tract infection Acute upper respiratory infections of unspecified site Thoracic myofascial strain, initial encounter documented [facility]* Diagnosis Other iron deficiency anemia- Primary 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 Mixed hyperlipidemia [facility]* Diagnosis Vaginal discharge Leukorrhea, not specified as infective Vaginal burning Other specified symptom associated with female genital organs Exposure to STD documented in this encounter [facility]* Diagnosis Onset Date Resolution Status Admit Date Constipation acute July 25, 2024 10:28am Cough acute July 25 10:28am Dysphagia acute July 25 10:28am [facility] Work Phone: Evaluation note* Diagnosis Breast pain, left- Primary Vitamin D deficiency Anxiety Anxiety state, unspecified documented in this encounter [facility] HealthcareEvaluation note* Diagnosis Well woman exam with routine gynecological exam Routine gynecological examination Breast cancer screening by mammogram Postmenopausal state Asymptomatic postmenopausal status (age-related) (natural) Vaginal itching Pruritus of genital organs Symptoms, such as flushing, sleeplessness, headache, lack of concentration, associated with the menopause Yeast infection documented in this encounter [facility] general Narrative - Reported* Type Description Date Medical History hyperlipidemia [facility] Other Instructions* Attachments The following attachments cannot be sent through Care Everywhere. * Yearly Physical for Adults ([place]) documented in this encounterProUniversity [facility]als [facility] SystemInstructionsNot on file documented in this encounterMarymount Hospital SystemInstructions* Attachments The following attachments cannot be sent through Care Everywhere. * Anemia, Possibly From Low Iron, Adult ED ([place]) documented in this encounterProUniversity Hospitals [facility] SystemReason for referral (narrative)* Consultation (Routine) - Pending Review Specialty Diagnoses / Procedures Referred By Carla alejandre Referred To Contact Otolaryngology Diagnoses 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 Laurence Amato, STORAGE BRINE WORKER-SERVICE AND REPAIR SUPERVISOR [address] [place] [address] Alvarez Nguyen MD [address] [place] [address] Referral ID Status Reason Start Date Expiration Date Visits Requested Visits Authorized [id number] Pending Review Specialty Services Required 10/25/2023 10/24/2024 1 1 Electronically signed by Laurence Amato STORAGE BRINE WORKER-SERVICE AND REPAIR SUPERVISOR at 10/25/2023 4:30 PM EDT [facility] Chief Complaint and Reason for Visit Chief Complaint R10.9 Chief Complaint costipation Reason for Visit Constipation Chief Complaint costipation Sore throat Reason for Visit Constipation Sore throat Chief Complaint costipation Sore throat Sore throat Reason for Visit Constipation Acute viral sinusitis Sore throat Chief Complaint Admit Date constipation July 25, 2024 10: 28am Reason for Visit Admit Date Constipation July 25, 2024 10: 28am Cough July 25, 2024 10: 28am Dysphagia July 25, 2024 10: 28am Advance Directives Advance Directive Response Recorded Date/ Time Advance Directives No November 19, 2021 6:55am Summary Purpose Family History Relationship Condition Age at Onset Recorded Date/T jesus sister Diabetes mellitus Unknown Additional Source Comments REASON FOR VISIT (unrecogniz ed section and content) Reason Comments BV Reason Comments Ear Problem Retraction of TM. Au christopher 01/10/24 Reason Comments Annual Exam Reason Comments Urinary Tract Infection Reason Comments Follow-up iron Reason Comments STI Screening Reason Comments Well Women Visit Care Teams (unrecognized sec tion and content) Team Status: Inactive Member Role Status Dates MACKENZIE Abad Attending Provider Active PHYSICIAN NO FAMILY Primary Care Provider Active Team Status: Active Member Role Status Dates PHYSICIAN NO FAMILY Primary Care Provider Active Team Status: Inactive Member Role Status Dates ELIAS Cross Attending Provider Active Team Status: Active Member Role Status Dates ELIAS Sandoval Primary Care Provider Active Team Status: Inactive Member Role Status Dates ELIAS Sandoval Primary Care Provider Active Start: October 30, 2023 End: October 30, 2023 Jose Chambers APRN Attending Provider Active Start: October 30, 2023 End: October 30, 2023 Team Status: Inactive Member Role Status Dates TRAVON SandovalC Primary Care Provider Active Start: January 09, 2024 End: January 09, 2024 Falguni Hurtado APRN Attending Provider Active Start: January 09, 2024 End: January 09, 2024 Team Status: Inactive Member Role Status Dates Falguni Hurtado APRN Attending Provider Active Start: January 09, 2024 End: January 09, 2024 Education Assistant Relationship Specialty Start Date End Date Laurence Amato CRNP [address] [place] [address] Referring Physician Nurse Practitioner 01/10/24 Education Assistant Relationship Specialty Start Date End Date Laurence Amato CRNP [address] [place] [address] Referring Physician Nurse Practitioner 01/10/24 Education Assistant Relationship Specialty Start Date End Date Laurence Amato CRNP [address] [place] [address] Referring Physician Nurse Practitioner 01/10/24 Education Assistant Relationship Specialty Start Date End Date Laurence Amato CRNP [address] [place] [address] Referring Physician Nurse Practitioner 01/10/24 Education Assistant Relationship Specialty Start Date End Date Lev Padilla MD [address] [address] PCP - General Family Medicine 04/11/24 Laurence Amato CRNP [address] [place] [address] Referring Physician Nurse Practitioner 01/10/24 Sabrina Weaver NP [address], [place] [address] Nurse Practitioner Family Medicine 04/11/24 Education Assistant Relationship Specialty Start Date End Date Lev Padilla MD [address] [address] PCP - General Family Medicine 04/11/24 Laurence Amato CRNP [address] [place] [address] Referring Physician Nurse Practitioner 01/10/24 Sabrina Weaver NP [address] [address] Nurse Practitioner Family Medicine 04/11/24 Education Assistant Relationship Specialty Start Date End Date Lev Padilla MD [address] [place] [address] PCP - General Family Medicine 04/11/24 Laurence Amato CRNP [address] [place] [address] Referring Physician Nurse Practitioner 01/10/24 Sabrina Weaver NP [address] [place] [address] Nurse Practitioner Family Medicine 04/11/24 Education Assistant Relationship Specialty Start Date End Date Lev Padilla MD [address] [address] PCP - General Family Medicine 04/11/24 Laurence Amato CRNP [address] [place] [address] Referring Physician Nurse Practitioner 01/10/24 Sabrina Weaver NP [address] [address] Nurse Practitioner Family Medicine 04/11/24 Education Assistant Relationship Specialty Start Date End Date Laurence Amato STORAGE [facility] [address] [place] [address] PCP - General Family Medicine 02/18/19 Education Assistant Relationship Specialty Start Date End Date Laurence [facility]mat[facility] [address] [place] [address] PCP - General Family Medicine 02/18/19 Education Assistant Relationship Specialty Start Date End Date Laurence Amato ST[facility]AGE BRINE [facility] [address] [place] [address] PCP - General Family Medicine 02/18/19 Education Assistant Relationship Specialty Start Date End Date Lev Padilla MD [address] [address] PCP - General Family Medicine 04/11/24 Laurence Amato CRNP [address] [place] [address] Referring Physician Nurse Practitioner 01/10/24 Sabrina Weaver NP [address] [address] Nurse Practitioner Family Medicine 04/11/24 Education Assistant Relationship Specialty Start Date End Date Lev Padilla MD [address], [facility] PCP - General Family Medicine 04/11/24 Laurence Amato CRNP [address] [place] [address] Referring Physician Nurse Practitioner 01/10/24 Sabrina Weaver NP [address] [address] Nurse Practitioner Family Medicine 04/11/24 Education Assistant Relationship Specialty Start Date End Date Lev Padilla MD [address], [facility] PCP - General Family Medicine 04/11/24 Laurence Amato CRNP [address] [place] [address] Referring Physician Nurse Practitioner 01/10/24 Sabrina Weaver NP [address] [address] Nurse Practitioner Family Medicine 04/11/24 Team Status: Inactive Member Role Status Dates Laurence Amato NP-C Primary Care Provider Active Start: July 25, 2024 End: July 25, 2024 Bennie Webb MD Attending Provider Active Start: July 25, 2024 End: July 25, 2024 Education Assistant Relationship Specialty Start Date End Date Lev Padilla MD [address] [place] [address] PCP - General Family Medicine 04/11/24 Laurence Amato CRNP Referring Physician Nurse Practitioner 01/10/24 Sabrina Weaver NP [address] [place] [address] Nurse Practitioner Family Medicine 04/11/24 Education Assistant Relationship Specialty Start Date End Date Lev Padilla MD [address] [place] [address] PCP - General Family Medicine 04/11/24 Laurence Amato CRNP Referring Physician Nurse Practitioner 01/10/24 Sabrina Weaver NP [address] [place] [address] Nurse Practitioner Family Medicine 04/11/24 Education Assistant Relationship Specialty Start Date End Date Lev Padilla MD [address] [place] [address] PCP - General Family Medicine 04/11/24 Laurence Amato CRNP Referring Physician Nurse Practitioner 01/10/24 Sabrina Weaver NP [address] [place] [address] Nurse Practitioner Family Medicine 04/11/24 Goals (unrecognized section and content) Goals may be documented in a n alternate section INFORMATION SOURCE (unrecogn ized section and content) DATE CREATED AUTHOR 02/26/2022 [facility] DATE CREATED AUTHOR AUTHOR'S ORGANIZ ATION 01/11/2023 [facility] DATE CREATED AUTHOR AUTHOR'S ORGANIZ ATION 06/07/2023 [facility] DATE CREATED AUTHOR AUTHOR'S ORGANIZ ATION 11/02/2023 [facility] DATE CREATED AUTHOR AUTHOR'S ORGANIZ ATION 01/14/2024 [facility] DATE CREATED AUTHOR AUTHOR'S ORGANIZ ATION 07/30/2024 [facility] EPIC FOR RECORDS PERTAINING TO PATIENTS [...] BE BASED ON THE PRIMARY CLINICAL RECORDS. [employer] [facility]. provides no warranty or guarantee of the accuracy or completeness of information in this document.
[2024-12-17 11:09] LABS: Age Gdln ACOG Testing Note (.); IGP, Aptima HPV, rfx 16/18,45 Note (.)
== END 2024-12-12 19:29 | disposition home or self-care (01) ==
LOC: LAB 19:28
PROVIDERS: PCP Nurse Practitioner; Visit Provider Physician Assistant
DX: Z01.419 Encounter for gynecological examination (general) (routine) without abnormal findings (principal)
CPT/HCPCS: 87624; 88175